=== PATIENT | female | born 1985 | race Caucasian/White ===

== ENCOUNTER 2023-04-01 09:51 | Emergency (ER) | payer SELFPAY ==
--- NOTE | 2023-04-01 09:57 | ERPHSYRPT ---
- History of Present Illness Time Seen by Provider: 04/01/23 09:57 Historian: patient Exam Limitations: no limitations Physician History: This is a 38-year-old white female patient who has been coughing for a week. This morning, approximately an hour prior to arrival, she was having some chest pain with coughing. She has had a dry, nonproductive cough for the last week. Patient is a daily smoker of cigarettes. Patient also works at a daycare. She also has headache and body aches as well. Patient is not short of breath. She does have a history of hyperlipidemia, diabetes, gastroesophageal reflux disease, hypertension, degenerative disc disease and depression. Timing/Duration: today Quality: tightness, other (Generalized tightness) Location: other (Generalized bilateral) Chest Pain Radiation: no radiation Severity of Pain-Max: mild Severity of Pain-Current: mild Modifying Factors: Improves With: coughing Associated Symptoms: cough, No nausea, No vomiting, No abdominal pain, No shortness of breath Prior Chest Pain/Cardiac Workup: no prior chest pain Nitro Today/Relief: no nitro taken today Aspirin Treatment Today: 81 mg x 4, provided by ED Allergies/Adverse Reactions: codeine Allergy (Verified 04/01/23 09:57) ketorolac [From Toradol] Allergy (Verified 04/01/23 09:57) morphine Allergy (Verified 04/01/23 09:57) ondansetron [From Zofran] Allergy (Verified 04/01/23 09:57) piroxicam [From Feldene] Allergy (Verified 04/01/23 09:57) Home Medications: Atorvastatin Calcium 40 mg PO HS 10/22/22 [History] Empagliflozin [Jardiance] 25 mg PO HS 10/22/22 [History] Fenofibrate Nanocrystallized [Fenofibrate] 145 mg PO HS 10/22/22 [History] Flecainide Acetate 50 mg PO BID 10/22/22 [History] Lamotrigine [Lamotrigine ER] 200 mg PO BID 10/22/22 [History] Lisinopril 10 mg [Zestril 10 MG] 10 mg PO HS 10/22/22 [History] Metformin HCl [Metformin ER Osmotic] 1,000 mg PO BID 10/22/22 [History] PANTOPRAZOLE 40 mg Tablet [Protonix 40MG Tablet] 40 mg PO HS 10/22/22 [History] Ropinirole HCl 2 mg PO HS 10/22/22 [History] Tizanidine HCl 4 mg [Zanaflex 4 MG] 4 mg PO TID 10/22/22 [History] Trazodone HCl 200 mg PO HS 10/22/22 [History] Venlafaxine HCl [Venlafaxine HCl ER] 150 mg PO HS 10/22/22 [History] Hx Tetanus, Diphtheria Vaccination/Date Given: No Hx Influenza Vaccination/Date Given: No Travel Risk - International Travel Have you traveled outside of the country in past 3 weeks: No - Coronavirus Screening Are you exhibiting any of the following symptoms?: Yes Symptoms: Cough: New Onset, Headaches/Body Aches/Fatigue Close contact with a COVID-19 positive Pt in past 14-21 Days: No - Vaccine Status Have you recieved a Covid-19 vaccination: No - Review of Systems Constitutional: No Symptoms Eyes: No Symptoms Ears, Nose, & Throat: No Symptoms Respiratory: Cough Cardiac: Chest Pain (Coughing) Abdominal/Gastrointestinal: No Symptoms Genitourinary Symptoms: No Symptoms Musculoskeletal: Arthralgias, Myalgias Skin: No Symptoms Neurological: No Symptoms Psychological: No Symptoms Endocrine: No Symptoms Hematologic/Lymphatic: No Symptoms Immunological/Allergic: No Symptoms All Other Systems: Reviewed and Negative - Past Medical History Pertinent Past Medical History: Yes Neurological History: No Pertinent History ENT History: No Pertinent History Cardiac History: High Cholesterol Respiratory History: No Pertinent History Endocrine Medical History: Diabetes Type II Musculoskeletal History: Degenerative Disk Disease GI Medical History: GERD History: No Pertinent History Psycho-Social History: Depression Female Reproductive Disorders: Menstrual Problems - Past Surgical History Past Surgical History: Yes Cardiac: Other Gastrointestinal: Cholecystectomy, Hernia Repair Female Surgical History: Hysterectomy Other Surgical History: ablation - Social History Smoking Status: Current some day smoker How long have you smoked: 25 years Exposure to second hand smoke: Yes Drug Use: none Patient Lives Alone: No - Nursing Vital Signs Nursing Vital Signs: Initial Vital Signs Pulse Rate 106 H 04/01/23 09:58 Pain Scale Pain Intensity 6 - Physical Exam General Appearance: no apparent distress, alert Ears, Nose, Throat Exam: normal ENT inspection, moist mucous membranes Neck Exam: normal inspection, non-tender, supple, full range of motion Respiratory Exam: normal breath sounds, lungs clear, airway intact, No chest tenderness, No respiratory distress Cardiovascular Exam: tachycardia Gastrointestinal/Abdomen Exam: soft, normal bowel sounds, No tenderness Pelvic Exam: not done Rectal Exam: not done Back Exam: normal inspection, normal range of motion, No CVA tenderness, No vertebral tenderness Extremity Exam: normal inspection, normal range of motion, pelvis stable Neurologic Exam: alert, oriented x 3, cooperative, mental health orderly II-XII nml as tested, normal mood/affect, nml cerebellar function, nml station & gait, sensation nml Skin Exam: normal color, warm, dry Lymphatic Exam: No adenopathy SpO2 Interpretation: normal O2 Delivery: Room Air - Course Nursing assessment & vital signs reviewed: Yes Ordered Tests: Active Orders 24 hr Category Date Time Status EKG-ER Only STAT Care 04/01/23 09:59 Active IV Insertion STAT Care 04/01/23 09:59 Active Pulse Oximetry (ED) STAT Care 04/01/23 09:59 Active CHEST 1 VIEW (PORTABLE) Stat Exams 04/01/23 09:58 Completed CBC W DIFF Stat Lab 04/01/23 10:20 Completed CMP Stat Lab 04/01/23 10:20 Received D-DIMER QUANTITATIVE Stat Lab 04/01/23 10:20 Completed MONO SCREEN Stat Lab 04/01/23 10:20 Completed NT PRO BNPII Stat Lab 04/01/23 10:20 Received TROPONIN Q4H Lab 04/01/23 14:00 Ordered TROPONIN Q4H Lab 04/01/23 18:00 Ordered Medication Summary Discontinued Medications Generic Name Dose Route Start Last Admin Trade Name Anderq PRN Reason Stop Dose Admin Hydrocodone Bitart/Acetaminophen 10 ml 04/01/23 10:31 04/01/23 10:36 Hydrocodone/Acetaminophen 5 Ml Udcup PO 04/01/23 10:32 10 ml STAT STA Administration Hydrocodone Bitart/Acetaminophen Confirm 04/01/23 10:34 Hydrocodone/Acetaminophen 5 Ml Udcup Administered 04/01/23 10:35 Dose 10 ml .ROUTE .STK-MED ONE Aspirin 324 mg 04/01/23 09:59 04/01/23 10:13 Aspirin 81 Mg Tab.Chew PO 04/01/23 10:00 324 mg STAT ONE Administration Aspirin Confirm 04/01/23 10:13 Aspirin 81 Mg Tab.Chew Administered 04/01/23 10:14 Dose 324 mg .ROUTE .STK-MED ONE Methylprednisolone Sodium 0 mg 04/01/23 10:31 04/01/23 10:36 Succinate 125 mg/ Sterile IV 04/01/23 10:32 125 mg Water 2 ml STAT ONE Administration Methylprednisolone Sodium Succinate Confirm 04/01/23 10:34 Methylprednis Sod Succ 125 Mg/2 Ml Vial Administered 04/01/23 10:35 Dose 125 mg .ROUTE .STK-MED ONE Sterile Water Confirm 04/01/23 10:34 Water For Injection,Sterile 10 Ml Vial Administered 04/01/23 10:35 Dose 10 ml IJ .STK-MED ONE Lab/Rad Data: Laboratory Result Diagrams 04/01/23 10:20 04/01/23 10:20 Laboratory Results 04/01/23 04/01/23 04/01/23 Range/Units 10:20 10:20 10:20 WBC (4.0-10.5) x10^3/uL RBC (4.1-5.4) x10^6/uL Hgb (12.0-16.0) g/dL Hct (35-47) % MCV (78-100) fL MCH (26-32) pg MCHC (32-36) g/dL RDW (11.5-14.0) % Plt Count (150-450) x10^3/uL MPV (7.5-11.0) fL Gran % (36.0-66.0) % Immature Gran % (Auto) (0.00-0.4) % Nucleat RBC Rel Count (0.00-0.1) % Eos # (Auto) (0-0.5) x10^3/uL Immature Gran # (Auto) (0.00-0.03) x10^3u/L Absolute Lymphs (auto) (1.0-4.6) x10^3/uL Absolute Monos (auto) (0.0-1.3) x10^3/uL Absolute Nucleated RBC (0.00-0.01) x10^3u/L Lymphocytes % (24.0-44.0) % Monocytes % (0.0-12.0) % Eosinophils % (0.00-5.0) % Basophils % (0.0-0.4) % Absolute Granulocytes (1.4-6.9) x10^3/uL Basophils # (0-0.4) x10^3/uL D-Dimer (0.0-0.50) mg/L Sodium Direct (138-146) mmol/L Potassium (3.5-4.9) mmol/L Chloride (98-109) mmol/L Carbon Dioxide (24-29) mmol/L Venous BUN (8-26) mg/dL Creatinine (0.6-1.3) mg/dL Glucose (70-105) mg/dL Ionized Calcium (1.12-1.32) mmol/L Troponin (0.00-0.03) ng/mL Monoscreen WEAKLY POSITIVE A (NEGATIVE) Influenza Type A Ag NEGATIVE (NEGATIVE) Influenza Type B Ag NEGATIVE (NEGATIVE) RSV (PCR) NEGATIVE (NEGATIVE) SARS-CoV-2 (PCR) NEGATIVE (NEGATIVE) Group A Strep Antibody NOT DETECTED (NEGATIVE) 04/01/23 04/01/23 04/01/23 Range/Units 10:20 10:20 10:20 WBC 14.3 H (4.0-10.5) x10^3/uL RBC 5.42 H (4.1-5.4) x10^6/uL Hgb 15.0 (12.0-16.0) g/dL Hct 46.7 (35-47) % MCV 86.2 (78-100) fL MCH 27.7 (26-32) pg MCHC 32.1 (32-36) g/dL RDW 14.5 H (11.5-14.0) % Plt Count 325 (150-450) x10^3/uL MPV 10.5 (7.5-11.0) fL Gran % 68.8 H (36.0-66.0) % Immature Gran % (Auto) 0.4 (0.00-0.4) % Nucleat RBC Rel Count 0.0 (0.00-0.1) % Eos # (Auto) 0.01 (0-0.5) x10^3/uL Immature Gran # (Auto) 0.06 H (0.00-0.03) x10^3u/L Absolute Lymphs (auto) 3.61 (1.0-4.6) x10^3/uL Absolute Monos (auto) 0.72 (0.0-1.3) x10^3/uL Absolute Nucleated RBC 0.00 (0.00-0.01) x10^3u/L Lymphocytes % 25.3 (24.0-44.0) % Monocytes % 5.0 (0.0-12.0) % Eosinophils % 0.1 (0.00-5.0) % Basophils % 0.4 (0.0-0.4) % Absolute Granulocytes 9.83 H (1.4-6.9) x10^3/uL Basophils # 0.05 (0-0.4) x10^3/uL D-Dimer 0.38 (0.0-0.50) mg/L Sodium Direct 137 L (138-146) mmol/L Potassium 3.7 (3.5-4.9) mmol/L Chloride 104 (98-109) mmol/L Carbon Dioxide 21 L (24-29) mmol/L Venous BUN 13 (8-26) mg/dL Creatinine 0.6 (0.6-1.3) mg/dL Glucose 177 H (70-105) mg/dL Ionized Calcium 1.07 L (1.12-1.32) mmol/L Troponin 0.02 (0.00-0.03) ng/mL Monoscreen (NEGATIVE) Influenza Type A Ag (NEGATIVE) Influenza Type B Ag (NEGATIVE) RSV (PCR) (NEGATIVE) SARS-CoV-2 (PCR) (NEGATIVE) Group A Strep Antibody (NEGATIVE) - Progress Progress: improved, re-examined Air Movement: good Progress Note: 04/01/23 11:54 This patient's medical issue is 1 of moderate complexity. The level of complexity in the work-up performed is based on review of the patient's past medical history, review the patient's medication list, review of patient drug allergy list, history of present illness and physical findings on examination. The work-up in this patient includes placement of intravenous line, chest x-ray, twelve-lead EKG, D-dimer, troponin level, CBC and CMP. I reviewed the results of the work-up. The chest x-ray was interpreted by the radiologist and I reviewed the impression. There is a subtle left base hazy airspace disease without consolidation or large effusion. Patient does have leukocytosis. It appears the patient has a pneumonia that is subtle but present radiographically. Clinically this fits her picture. We will provide her with Rocephin 1 g intravenously and discharge her home with a prescription for Z-[place], prednisone and hydrocodone elixir. Blood Culture(s) Obtained: Yes Antibiotics given: Yes Counseled pt/family regarding: lab results, diagnosis, need for follow-up, rad results Medical Desision Making - Diagnostic Testing Diagnostic test were ordered, analyzed, and reviewed by me: Yes Radiological Interpretation: Reviewed by me, Teleradiologist Report - Risk of complications The pt has a mod risk of morbidity or mortality based on: Need for prescription drug management - Departure Departure Disposition: Home Clinical Impression: Left pulmonary infiltrate on CXR, Monospot test positive Condition: Stable Critical Care Time: No Referrals: DOCTOR,NO FAMILY [Primary Care Provider] - Follow up/PCP as directed Additional Instructions: Stop smoking. Drink plenty fluids. Take your antibiotics and other medications as prescribed. Follow-up with your primary care provider for further evaluation and management. Prescriptions: Hydrocodone/Acetaminophen [Hydrocodone-Acetamn 7.5-325/15] 10 ml PO Q8H PRN PRN #120 ml MDD 30 ml PRN Reason: Cough Prednisone 10 mg [Deltasone 10 mg] 10 mg PO TID #12 tablet Azithromycin 250 mg [Zithromax 250 MG TABLET] 250 mg PO ZPACK #6 tablet
[2023-04-01] MEDS ORDERED: BABY ASPIRIN 81 MG CHEW PO ONE (09:59)
[2023-04-01 10:01] VITALS: TEMP 98.3
[2023-04-01] MEDS ORDERED: BABY ASPIRIN 81 MG CHEW ONE (10:13)
[2023-04-01 10:24] LABS: Absolute Neutrophil Ct (ANC) 9.83 x10^3/uL (1.4-6.9); BASOPHIL % 0.4 % (0.0-0.4); Basophil (Absolute #) 0.05 x10^3/uL (0-0.4); Eosinophil % 0.1 % (0.00-5.0); Eosinophil (Absolute #) 0.01 x10^3/uL (0-0.5); Hematocrit 46.7 % (35-47); IMMATURE GRAN # 0.06 x10^3u/L (0.00-0.03); IMMATURE GRAN % 0.4 % (0.00-0.4); Lymphocyte (Absolute #) 3.61 x10^3/uL (1.0-4.6); Lymphocytes % 25.3 % (24.0-44.0); Mean Cell Volume 86.2 fL (78-100); Mean Corpuscular Hemoglobin 27.7 pg (26-32); Mean Corpuscular Hgb Concent. 32.1 g/dL (32-36); Mean Platelet Volume 10.5 fL (7.5-11.0); Monocyte (Absolute #) 0.72 x10^3/uL (0.0-1.3); Neutrophil % 68.8 % (36.0-66.0); Platelet Count 325 x10^3/uL (150-450); Red Blood Count 5.42 x10^6/uL (4.1-5.4); Red Cell Distribution Width 14.5 % (11.5-14.0); White Blood Count 14.3 x10^3/uL (4.0-10.5)
[2023-04-01] MEDS ORDERED: solu-MEDROL 125 MG, Sterile H2O 10 ml 2 ML IV ONE ×2 (10:31)
[2023-04-01] MEDS ORDERED: HYDROCODONE-ACETAMIN 2.5-108/5 ML SOLUTION PO STA ×2 (10:31→12:05)
--- NOTE | 2023-04-01 10:31 | XRAY ---
Indication: Cough and chest pain. Comparison: None Portable chest demonstrates subtle left base hazy airspace disease without consolidation/large effusion. Remaining heart and lungs unremarkable. Bony thorax intact.
[2023-04-01] MEDS ORDERED: Sterile H2O 10 ml IJ ONE (10:34)
[2023-04-01] MEDS ORDERED: HYDROCODONE-ACETAMIN 2.5-108/5 ML SOLUTION ONE ×2 (10:34→12:08)
[2023-04-01] MEDS ORDERED: solu-MEDROL ONE (10:34)
[2023-04-01 10:36] LABS: ISTAT CREA 0.6 mg/dL (0.6-1.3); ISTAT K 3.7 mmol/L (3.5-4.9); ISTAT iCA 1.07 mmol/L (1.12-1.32)
[2023-04-01 10:59] LABS: ISTAT cTNI 0.02 ng/mL (0.00-0.03)
[2023-04-01 11:31] LABS: INFLUENZA A NEGATIVE (NEGATIVE); INFLUENZA B NEGATIVE (NEGATIVE); RESPIRATORY SYNCTIAL VIRUS NEGATIVE (NEGATIVE); SARS-CoV-2 Xpert Express NEGATIVE (NEGATIVE)
[2023-04-01] MEDS ORDERED: ROCEPHIN 1 Gm-D5w 50 ml Bag** 1 G/50 ML IVPB IV STA (11:54)
[2023-04-01] MEDS ORDERED: ROCEPHIN 1 Gm-D5w 50 ml Bag** 1 G/50 ML IVPB IV ONE (11:59)
[2023-04-01 12:12] VITALS: BP 116/80; PULSE 86; RESP 16; O2SAT 96
[2023-04-01 12:46] LABS: ALKALINE PHOSPHATASE 61 U/L (38-126); ANION GAP 19.6 MEQ/L (5-15); BLOOD UREA NITROGEN 11 mg/dL (7-17); CHLORIDE 105 mmol/L (98-107); Calcium 8.8 mg/dL (8.4-10.2); Carbon Dioxide 20 mmol/L (22-30); Creatinine 1 0.53 mg/dL (0.52-1.04); EST GLOMERULAR FILTRATION RATE > 60.0 ML/MIN; Glucose 155 mg/dL (74-106); NT PRO BNPII 235 pg/mL (<300); Potassium 3.7 mmol/L (3.5-5.1); SGOT/AST 24 U/L (14-36); SGPT/ALT 24 U/L (0-35); SODIUM 140 mmol/L (137-145)
== END 2023-04-01 12:19 | disposition home or self-care (01) ==
LOC: MERGE 09:51 → ED 09:51
DX: R91.8 Other nonspecific abnormal finding of lung field (principal); B27.90 Infectious mononucleosis, unspecified without complication; R07.9 Chest pain, unspecified; R05.9 Cough, unspecified; R51.9 Headache, unspecified; M79.10 Myalgia, unspecified site; E78.5 Hyperlipidemia, unspecified; E11.9 Type 2 diabetes mellitus without complications; I10 Essential (primary) hypertension; Z79.84 Long term (current) use of oral hypoglycemic drugs; Z79.899 Other long term (current) drug therapy; Z79.891 Long term (current) use of opiate analgesic; Z79.52 Long term (current) use of systemic steroids; Z28.310 Unvaccinated for COVID-19; Z72.0 Tobacco use
CPT/HCPCS: 0241U; 36000; 36415; 71045; 80047; 80053; 83880; 84484; 85025; 85379; 86308; 87651; 93005; 94760; 96365; 96374; 99284; J0696; J2930; A9270-GY

== ENCOUNTER 2023-08-06 15:19 | Emergency (ER) | payer OTHER ==
--- NOTE | 2023-08-06 15:48 | ERPHSYRPT ---
- History of Present Illness Time Seen by Provider: 08/06/23 15:48 Source: patient, family Exam Limitations: no limitations Physician History: This is a 38-year-old white female patient who presents to the emergency department after experiencing sudden onset of right flank pain that is sharp and radiating to the right lower quadrant. Patient has had similar symptoms in the past. She has a history of ovarian cyst on the right side as well as right ureterolithiasis. Patient cannot take Toradol. She can use intravenous Dilaudid. She has used this in the past without any negative adverse effects. Patient has a history of degenerative disc disease, hyperlipidemia and depression. Patient denies chest pain. Patient has shortness of breath. Patient has not had any cough. She denies nausea vomiting and diarrhea symptoms. Timing/Duration: today Method of Injury: other (Injury) Quality: sharp, stabbing Associated Symptoms: weakness, No urinary incontinence, No loss of bowel control, No problems urinating, No lower back pain Previous symptoms: same symptoms as today, no recent treatment Allergies/Adverse Reactions: codeine Allergy (Verified 08/06/23 15:52) ketorolac [From Toradol] Allergy (Verified 08/06/23 15:52) morphine Allergy (Verified 08/06/23 15:52) ondansetron [From Zofran] Allergy (Verified 08/06/23 15:52) piroxicam [From Feldene] Allergy (Verified 08/06/23 15:52) Home Medications: Atorvastatin Calcium 40 mg PO HS 10/22/22 [History] Empagliflozin [Jardiance] 25 mg PO HS 10/22/22 [History] Fenofibrate Nanocrystallized [Fenofibrate] 145 mg PO HS 10/22/22 [History] Flecainide Acetate 50 mg PO BID 10/22/22 [History] Lamotrigine [Lamotrigine ER] 200 mg PO BID 10/22/22 [History] Lisinopril 10 mg [Zestril 10 MG] 10 mg PO HS 10/22/22 [History] Metformin HCl [Metformin ER Osmotic] 1,000 mg PO BID 10/22/22 [History] PANTOPRAZOLE 40 mg Tablet [Protonix 40MG Tablet] 40 mg PO HS 10/22/22 [History] Ropinirole HCl 2 mg PO HS 10/22/22 [History] Tizanidine HCl 4 mg [Zanaflex 4 MG] 4 mg PO TID 10/22/22 [History] Trazodone HCl 200 mg PO HS 10/22/22 [History] Venlafaxine HCl [Venlafaxine HCl ER] 150 mg PO HS 10/22/22 [History] Hx Tetanus, Diphtheria Vaccination/Date Given: No Hx Influenza Vaccination/Date Given: No Hx Pneumococcal Vaccination/Date Given: Yes Travel Risk - International Travel Have you traveled outside of the country in past 3 weeks: No - Coronavirus Screening Are you exhibiting any of the following symptoms?: No Close contact with a COVID-19 positive Pt in past 14-21 Days: No - Vaccine Status Have you recieved a Covid-19 vaccination: No - Review of Systems Constitutional: No Symptoms Eyes: No Symptoms Ears, Nose, & Throat: No Symptoms Respiratory: No Symptoms Cardiac: No Symptoms Abdominal/Gastrointestinal: Abdominal Pain, No Nausea, No Vomiting, No Diarrhea, No Appetite Changes Genitourinary Symptoms: Flank Pain (Right flank) Musculoskeletal: No Symptoms, No Injury Skin: No Symptoms Neurological: No Symptoms Psychological: No Symptoms Endocrine: No Symptoms Hematologic/Lymphatic: No Symptoms Immunological/Allergic: No Symptoms All Other Systems: Reviewed and Negative - Past Medical History Pertinent Past Medical History: Yes Neurological History: No Pertinent History ENT History: No Pertinent History Cardiac History: High Cholesterol Respiratory History: No Pertinent History Endocrine Medical History: Diabetes Type II Musculoskeletal History: Degenerative Disk Disease GI Medical History: GERD History: No Pertinent History Psycho-Social History: Depression Female Reproductive Disorders: Menstrual Problems - Past Surgical History Past Surgical History: Yes Cardiac: Other Gastrointestinal: Cholecystectomy, Hernia Repair Female Surgical History: Hysterectomy Other Surgical History: ablation - Social History Smoking Status: Current some day smoker How long have you smoked: 25 years Exposure to second hand smoke: Yes Drug Use: none Patient Lives Alone: No - Nursing Vital Signs Nursing Vital Signs: Initial Vital Signs Temperature 97.8 F 08/06/23 15:55 Pulse Rate 93 H 08/06/23 15:55 Respiratory Rate 18 08/06/23 15:55 Blood Pressure 122/81 08/06/23 15:55 O2 Sat by Pulse Oximetry 96 08/06/23 15:55 Pain Scale Pain Intensity 6 - Physical Exam General Appearance: no apparent distress, alert, anxiety Eye Exam: PERRL/EOMI, eyes nml inspection Ears, Nose, Throat Exam: normal ENT inspection, moist mucous membranes Neck Exam: normal inspection, non-tender, supple, full range of motion Respiratory Exam: normal breath sounds, lungs clear, airway intact, No chest tenderness, No respiratory distress Cardiovascular Exam: regular rate/rhythm, normal heart sounds, normal peripheral pulses Gastrointestinal Exam: soft, normal bowel sounds, tenderness, guarding (Lower quadrant), No rebound ( right lower quadrant to palpation) Pelvic Exam: not done Rectal Exam: not done Back Exam: normal inspection, normal range of motion, CVA tenderness (Right), No vertebral tenderness Extremity Exam: normal inspection, normal range of motion, pelvis stable Neurologic Exam: alert, oriented x 3, cooperative, assistant director of security II-XII nml as tested, normal mood/affect, nml cerebellar function, nml station & gait, sensation nml Skin Exam: normal color, warm, dry Lymphatic Exam: No adenopathy SpO2 Interpretation: borderline oxygenation O2 Delivery: Room Air - Course Nursing assessment & vital signs reviewed: Yes Ordered Tests: Active Orders 24 hr Category Date Time Status IV Insertion STAT Care 08/06/23 16:13 Active ABDOMEN AND PELVIS W/0 CONTRAS [CT] Stat Exams 08/06/23 16:12 Completed AMYLASE Stat Lab 08/06/23 16:22 Completed CBC W DIFF Stat Lab 08/06/23 16:22 Completed CMP Stat Lab 08/06/23 16:22 Completed LIPASE Stat Lab 08/06/23 16:22 Completed UA W/RFX UR CULTURE Stat Lab 08/06/23 16:17 Completed Medication Summary Discontinued Medications Generic Name Dose Route Start Last Admin Trade Name Jean PRN Reason Stop Dose Admin Hydromorphone HCl 1 mg 08/06/23 16:13 08/06/23 16:34 Hydromorphone 1 Mg/1ml Inj IV 08/06/23 16:14 1 mg STAT ONE Administration Hydromorphone HCl Confirm 08/06/23 16:30 Hydromorphone 1 Mg/1ml Inj Administered 08/06/23 16:31 Dose 1 mg .ROUTE .STK-MED ONE Sodium Chloride 1,000 mls @ 999 mls/hr 08/06/23 16:13 08/06/23 16:31 Sodium Chloride 0.9% 1000 Ml IV 08/06/23 17:13 999 mls/hr .Q1H1M STA Administration Sodium Chloride Confirm 08/06/23 16:30 Sodium Chloride 0.9% 1000 Ml Administered 08/06/23 16:31 Dose 1,000 mls @ ud .ROUTE .[employer] Prochlorperazine Edisylate 5 mg 08/06/23 16:13 08/06/23 16:33 Prochlorperazine Edisylate 10 Mg/2 Ml Vial IV 08/06/23 16:14 5 mg STAT ONE Administration Prochlorperazine Edisylate Confirm 08/06/23 16:30 Prochlorperazine Edisylate 10 Mg/2 Ml Vial Administered 08/06/23 16:31 Dose 10 mg .ROUTE .[employer] Lab/Rad Data: Laboratory Result Diagrams 08/06/23 16:22 08/06/23 16:22 Laboratory Results 08/06/23 08/06/23 08/06/23 Range/Units 16:22 16:22 16:17 WBC 20.1 H (4.0-10.5) x10^3/uL RBC 4.94 (4.1-5.4) x10^6/uL Hgb 13.6 (12.0-16.0) g/dL Hct 41.4 (35-47) % MCV 83.8 (78-100) fL MCH 27.5 (26-32) pg MCHC 32.9 (32-36) g/dL RDW 14.7 H (11.5-14.0) % Plt Count 310 (150-450) x10^3/uL MPV 9.9 (7.5-11.0) fL Gran % 73.7 H (36.0-66.0) % Immature Gran % (Auto) 0.3 (0.00-0.4) % Nucleat RBC Rel Count 0.0 (0.00-0.1) % Eos # (Auto) 0.03 (0-0.5) x10^3/uL Immature Gran # (Auto) 0.07 H (0.00-0.03) x10^3u/L Absolute Lymphs (auto) 4.09 (1.0-4.6) x10^3/uL Absolute Monos (auto) 1.05 (0.0-1.3) x10^3/uL Absolute Nucleated RBC 0.00 (0.00-0.01) x10^3u/L Lymphocytes % 20.4 L (24.0-44.0) % Monocytes % 5.2 (0.0-12.0) % Eosinophils % 0.1 (0.00-5.0) % Basophils % 0.3 (0.0-0.4) % Absolute Granulocytes 14.78 H (1.4-6.9) x10^3/uL Basophils # 0.06 (0-0.4) x10^3/uL Sodium 134 L (137-145) mmol/L Potassium 3.7 (3.5-5.1) mmol/L Chloride 104 (98-107) mmol/L Carbon Dioxide 21 L (22-30) mmol/L Anion Gap 12.4 (5-15) MEQ/L BUN 14 (7-17) mg/dL Creatinine 0.45 L (0.52-1.04) mg/dL Estimated GFR 126.2 ML/MIN Glucose 147 H (74-106) mg/dL Calcium 9.1 (8.4-10.2) mg/dL Total Bilirubin 0.40 (0.2-1.3) mg/dL AST 19 (14-36) U/L ALT 20 (0-35) U/L Alkaline Phosphatase 61 (38-126) U/L Serum Total Protein 7.6 (6.3-8.2) g/dL Albumin 4.1 (3.5-5.0) g/dL Amylase 44 (30-110) U/L Lipase 76 (23-300) U/L Urine Color Yellow (Yellow) Urine Appearance Clear (Clear) Urine pH 6.0 (4.6-8.0) Ur Specific [place] >=1.030 A (1.005-1.030) Urine Protein Negative (Negative) Urine Glucose (UA) >=1000 A (Negative) mg/dL Urine Ketones Negative (Negative) Urine Blood Negative (Negative) Urine Nitrite Negative (Negative) Urine Bilirubin Negative (Negative) Urine Urobilinogen 0.2 (0.2) mg/dL Ur Leukocyte Esterase Negative (Negative) U Hyaline Cast (Auto) NONE SEEN (0-2) /LPF Urine Microscopic RBC 0-2 (0-5) /HPF Urine Microscopic WBC 0-2 (0-5) /HPF Ur Epithelial Cells None Seen (None Seen) /HPF Urine Bacteria None Seen (None Seen) /HPF Urine Culture Reflexed NO (NO) - Progress Progress: improved, pain not gone completely Progress Note: 08/06/23 16:34 This patient's medical issue is 1 of moderate complexity. Level of complexity in the workup performed is based on review of the patient's past medical history, review the patient's medication list, reviewed patient's drug allergy list, history of present illness and physical findings on examination. The w orkup in this patient includes placement of an intravenous line, CBC, CMP, amylase, lipase, urinalysis, CT scan of the abdomen pelvis without contrast. 08/06/23 17:20 I interpreted the patient's laboratory results. Of significance, the patient has leukocytosis with a left shift. There is an unknown source. Does not appear to be lungs or skin or urine. We will cover her with Levaquin orally eac h day for [address] scan of the abdomen pelvis was interpreted by the radiologist and I reviewed the impression. Impression says negative for renal calculus or obstructive uropathy. Normal appendix. The lung bases show minimal dependent atelectasis. The aorta is unremarkable. Counseled pt/family regarding: lab results, diagnosis, need for follow-up, rad results Medical Desision Making - Independent Historian Additional History obtained from: Family - Diagnostic Testing Diagnostic test were ordered, analyzed, and reviewed by me: Yes Radiological Interpretation: Reviewed by me, Teleradiologist Report - Risk of complications The pt has a mod risk of morbidity or mortality based on: Need for prescription drug management - Departure Departure Disposition: Home Clinical Impression: Leukocytosis, Right flank pain, Right sided abdominal pain Condition: Stable Critical Care Time: No Referrals: DOLORES MEJIA [Primary Care Provider] - Follow up/PCP as directed Additional Instructions: Drink plenty of clear liquids. Take your antibiotic and other medications as prescribed. Call your primary care provider on 08/09/2023 to make arranges for further evaluation management. Prescriptions: Oxycodone HCl/Acetaminophen [Percocet 5-325 mg Tablet] 1 each PO Q8H PRN PRN #6 tablet MDD 3 PRN Reason: Moderate To Severe Pain Levofloxacin [Levaquin 500 MG Tablet] 500 mg PO DAILY #7 tablet
[2023-08-06 16:05] VITALS: TEMP 97.8; O2SAT 96
[2023-08-06] MEDS ORDERED: Hydromorphone 1 mg/ml Injection IV ONE (16:13)
[2023-08-06] MEDS ORDERED: Compazine 10 MG/2 ML IV ONE (16:13)
[2023-08-06] MEDS ORDERED: Sodium Chloride 0.9% 1000 ML 1,000 ML IV STA (16:13)
[2023-08-06 16:22] LABS: ADD URINE CULTURE? NO (NO); Appearance Clear (Clear); Bacteria None Seen /HPF (None Seen); Bilirubin Negative (Negative); Blood Negative (Negative); Epithelial Cells None Seen /HPF (None Seen); Glucose, Urine >=1000 mg/dL (Negative); Hyaline Casts NONE SEEN /LPF (0-2); Ketones Negative (Negative); Leukocyte Esterase Negative (Negative); Nitrite Negative (Negative); Protein,Urine Dip Negative (Negative); RBC 0-2 /HPF (0-5); Specific Gravity >=1.030 (1.005-1.030); Urobilinogen 0.2 mg/dL (0.2); WBC 0-2 /HPF (0-5)
[2023-08-06 16:27] LABS: Absolute Neutrophil Ct (ANC) 14.78 x10^3/uL (1.4-6.9); BASOPHIL % 0.3 % (0.0-0.4); Basophil (Absolute #) 0.06 x10^3/uL (0-0.4); Eosinophil % 0.1 % (0.00-5.0); Eosinophil (Absolute #) 0.03 x10^3/uL (0-0.5); Hematocrit 41.4 % (35-47); Hemoglobin 13.6 g/dL (12.0-16.0); IMMATURE GRAN # 0.07 x10^3u/L (0.00-0.03); IMMATURE GRAN % 0.3 % (0.00-0.4); Lymphocyte (Absolute #) 4.09 x10^3/uL (1.0-4.6); Lymphocytes % 20.4 % (24.0-44.0); Mean Cell Volume 83.8 fL (78-100); Mean Corpuscular Hemoglobin 27.5 pg (26-32); Mean Corpuscular Hgb Concent. 32.9 g/dL (32-36); Mean Platelet Volume 9.9 fL (7.5-11.0); Monocyte (Absolute #) 1.05 x10^3/uL (0.0-1.3); Monocytes % 5.2 % (0.0-12.0); Neutrophil % 73.7 % (36.0-66.0); Platelet Count 310 x10^3/uL (150-450); Red Blood Count 4.94 x10^6/uL (4.1-5.4); Red Cell Distribution Width 14.7 % (11.5-14.0); White Blood Count 20.1 x10^3/uL (4.0-10.5)
[2023-08-06 16:28] VITALS: BP 106/69; PULSE 86; RESP 16
[2023-08-06] MEDS ORDERED: Hydromorphone 1 mg/ml Injection ONE (16:30)
[2023-08-06] MEDS ORDERED: Sodium Chloride 0.9% 1000 ML 1,000 ML ONE (16:30)
[2023-08-06] MEDS ORDERED: Compazine 10 MG/2 ML ONE (16:30)
[2023-08-06 16:39] LABS: ALBUMIN 4.1 g/dL (3.5-5.0); ANION GAP 12.4 MEQ/L (5-15); BILIRUBIN,TOTAL 0.4 mg/dL (0.2-1.3); Calcium 9.1 mg/dL (8.4-10.2); Creatinine 1 0.45 mg/dL (0.52-1.04); EST GLOMERULAR FILTRATION RATE 126.2 ML/MIN; Potassium 3.7 mmol/L (3.5-5.1); Total Protein 7.6 g/dL (6.3-8.2)
--- NOTE | 2023-08-06 17:09 | XRAY ---
Indication: Right flank/right abdomen pain. Multiple contiguous axial images obtained through the abdomen and pelvis without contrast using renal stone protocol. Comparison: October 22, 2022 Lung bases demonstrates minimal dependent atelectasis. Heart not enlarged. Again no renal calculus or evidence for obstructive uropathy in either system. Noncontrasted stomach and bowel loops appear nonobstructed again with normal appendix. Previous cholecystectomy and hysterectomy. No free fluid/air. Remaining liver, pancreas, spleen, adrenal glands, kidneys, ureters, bladder, and aorta are unremarkable for noncontrast exam. Osseous structures intact again with L5-S1 fusion hardware and mild degenerative changes both hips. Impression: 1. Continued negative renal calculus or evidence for obstructive uropathy. 2. Again chronic bony findings. 3. Remaining CT abdomen/pelvis without contrast exam continues to be negative.
== END 2023-08-06 17:53 | disposition home or self-care (01) ==
LOC: ED 15:19
DX: D72.829 Elevated white blood cell count, unspecified (principal); R10.31 Right lower quadrant pain; R10.11 Right upper quadrant pain; E78.5 Hyperlipidemia, unspecified; E11.9 Type 2 diabetes mellitus without complications; Z79.84 Long term (current) use of oral hypoglycemic drugs; Z79.891 Long term (current) use of opiate analgesic; Z79.899 Other long term (current) drug therapy; Z28.310 Unvaccinated for COVID-19; Z72.0 Tobacco use
CPT/HCPCS: 36000; 36415; 74176; 80053; 81001; 82150; 83690; 85025; 96374; 96375; 99284; J1170

== ENCOUNTER 2023-08-13 16:28 | Emergency (ER) | payer OTHER ==
[2023-08-13 17:00] VITALS: TEMP 97.7
[2023-08-13 18:04] VITALS: BP 116/78
[2023-08-13] MEDS ORDERED: Norflex 60 MG/2 ML IM ONE (19:00)
[2023-08-13] MEDS ORDERED: PERCOCET TABLET 5/325MG PO STA (19:01)
[2023-08-13] MEDS ORDERED: solu-MEDROL 125 MG, Sterile H2O 10 ml 2 ML IM ONE ×2 (19:01)
--- NOTE | 2023-08-13 19:09 | ERPHSYRPT ---
- History of Present Illness Time Seen by Provider: 08/13/23 17:15 Source: patient Exam Limitations: no limitations Patient Subjective Stated Complaint: Pt states "I slipped down a step in the rain and hit my back. I have had spinal fusion in the past and I am just nervou s." Triage Nursing Assessment: Pt presented alert and oriented X 3, skin pwd. Pt ambulates with a slow gait, able to speak in clear full sentences. PT resting comfortably on the bed. Physician History: This is an overweight 38-year-old white female patient who has had a spinal fusion of L5-S1 and was walking on her steps in the rain and slipped falling backwards and hitting the lower back. She was concerned because of the pain and concerned that the hardware that is present has been displaced. Patient did not hit her head. She did not lose consciousness. She has no chest pain. She has no extremity pain. She has no abdominal pain Occurred: just prior to arrival Reason for Fall: slipped (On wet steps), fell from standing pos Injuries/Pain Location: back (Lower back) Loss of Consciousness: no loss of consciousness Quality: aching Severity of Pain-Max: moderate Severity of Pain-Current: moderate Modifying Factors: Improves With: movement Associated Symptoms (Fall): denies symptoms Allergies/Adverse Reactions: codeine Allergy (Verified 08/06/23 15:52) ketorolac [From Toradol] Allergy (Verified 08/06/23 15:52) morphine Allergy (Verified 08/06/23 15:52) ondansetron [From Zofran] Allergy (Verified 08/06/23 15:52) piroxicam [From Feldene] Allergy (Verified 08/06/23 15:52) Home Medications: Atorvastatin Calcium 40 mg PO HS 10/22/22 [History] Empagliflozin [Jardiance] 25 mg PO HS 10/22/22 [History] Fenofibrate Nanocrystallized [Fenofibrate] 145 mg PO HS 10/22/22 [History] Flecainide Acetate 50 mg PO BID 10/22/22 [History] Lamotrigine [Lamotrigine ER] 200 mg PO BID 10/22/22 [History] Lisinopril 10 mg [Zestril 10 MG] 10 mg PO HS 10/22/22 [History] Metformin HCl [Metformin ER Osmotic] 1,000 mg PO BID 10/22/22 [History] PANTOPRAZOLE 40 mg Tablet [Protonix 40MG Tablet] 40 mg PO HS 10/22/22 [History] Ropinirole HCl 2 mg PO HS 10/22/22 [History] Tizanidine HCl 4 mg [Zanaflex 4 MG] 4 mg PO TID 10/22/22 [History] Trazodone HCl 200 mg PO HS 10/22/22 [History] Venlafaxine HCl [Venlafaxine HCl ER] 150 mg PO HS 10/22/22 [History] Gabapentin 800 mg PO TID 08/13/23 [History] Hx Tetanus, Diphtheria Vaccination/Date Given: No Hx Influenza Vaccination/Date Given: No Hx Pneumococcal Vaccination/Date Given: Yes Immunizations Up to Date: No Travel Risk - International Travel Have you traveled outside of the country in past 3 weeks: No - Coronavirus Screening Are you exhibiting any of the following symptoms?: No Close contact with a COVID-19 positive Pt in past 14-21 Days: No - Vaccine Status Have you recieved a Covid-19 vaccination: No - Review of Systems Constitutional: No Symptoms Eyes: No Symptoms Ears, Nose, & Throat: No Symptoms Respiratory: No Symptoms Cardiac: No Symptoms Abdominal/Gastrointestinal: No Symptoms Genitourinary Symptoms: No Symptoms Musculoskeletal: Back Pain (Lower back pain with movement) Skin: No Symptoms Neurological: No Symptoms Psychological: No Symptoms Endocrine: No Symptoms Hematologic/Lymphatic: No Symptoms Immunological/Allergic: No Symptoms All Other Systems: Reviewed and Negative - Past Medical History Pertinent Past Medical History: Yes Neurological History: No Pertinent History ENT History: No Pertinent History Cardiac History: High Cholesterol Respiratory History: No Pertinent History Endocrine Medical History: Diabetes Type II Musculoskeletal History: Degenerative Disk Disease GI Medical History: GERD History: No Pertinent History Psycho-Social History: Depression Female Reproductive Disorders: Menstrual Problems - Past Surgical History Past Surgical History: Yes Cardiac: Other Gastrointestinal: Cholecystectomy, Hernia Repair Female Surgical History: Hysterectomy Other Surgical History: ablation - Social History Smoking Status: Current some day smoker How long have you smoked: 25 years Exposure to second hand smoke: Yes Drug Use: none Patient Lives Alone: No - Female History Hx Last Menstrual Period: hysterectomy Hx Now: No - Nursing Vital Signs Nursing Vital Signs: Initial Vital Signs Temperature 97.7 F 08/13/23 16:55 Pulse Rate 100 H 08/13/23 16:55 Respiratory Rate 20 08/13/23 16:55 Blood Pressure 110/76 08/13/23 16:55 O2 Sat by Pulse Oximetry 98 08/13/23 16:55 Pain Scale Pain Intensity 0 - Julio Coma Score Best Eye Response (Julio): (4) open spontaneously Best Verbal Response (Julio): (5) oriented Best Motor Response ([place]): (6) obeys commands [place] Total: 15 - Physical Exam General Appearance: no apparent distress, alert, anxiety Head Injury: no evidence of injury Eye Exam: PERRL/EOMI, eyes nml inspection ENT Exam: airway nml, nml ext.inspection, No evidence of ENT injury Neck Exam: supple, trachea midline, full range of motion, normal alignment, normal inspection Respiratory/Chest Exam: normal breath sounds, No chest tenderness, No respiratory distress, No ecchymosis, No crepitus Cardiovascular Exam: normal heart sounds, regular rate/rhythm Gastrointestinal Exam: No tenderness Rectal Exam: not done Back Exam: normal inspection, normal range of motion, muscle spasm (Lumbar level pain bilateral paraspinous muscle), No CVA tenderness, No vertebral tenderness Extremity Exam: normal inspection, normal range of motion, pelvis stable Neurologic Exam: alert, oriented x 3, cooperative, aerial gunner superintendent II-XII nml as tested, normal mood/affect, nml cerebellar function, nml station & gait Skin Exam: normal color, warm, dry SpO2 Interpretation: normal SpO2: 97 O2 Delivery: Room Air - Course Nursing assessment & vital signs reviewed: Yes Ordered Tests: Active Orders 24 hr Category Date Time Status LUMBAR LIMITED (2 OR 3 VIEWS) Stat Exams 08/13/23 17:36 Taken Medication Summary Discontinued Medications Generic Name Dose Route Start Last Admin Trade Name Freq PRN Reason Stop Dose Admin Methylprednisolone Sodium 0 mg 08/13/23 19:01 Succinate 125 mg/ Sterile IM 08/13/23 19:02 Water 2 ml STAT ONE Orphenadrine Citrate 30 mg 08/13/23 19:00 Orphenadrine Citrate 60 Mg/2 Ml Vial IM 08/13/23 19:01 STAT ONE Oxycodone/Acetaminophen 1 tab 08/13/23 19:01 Oxycodone Hcl/Apap 5 Mg/325 Mg Tablet PO 08/13/23 19:02 STAT STA - Progress Progress: improved, pain not gone completely Progress Note: 08/13/23 19:07 This patient's medical issue is 1 of low complexity. The level of complexity in the workup performed is based on review the patient's past medical history, review the patient's medication list, review of the patient's drug allergy list, history of present illness and physical findings on examination. The workup in this patient includes lumbar spine x-ray series. I interpreted the lumbar spine x-ray series that was performed today. I do not appreciate any acute or new fracture or subluxation. The spinal fusion hardware appears to be in the appropriate position. Patient was told that this was a preliminary read and the final read would be performed in the next 24 to 48 hours. If it is different than my read, she will hear from the hospital. 08/13/23 19:09 Patient has taken oxycodone and can take oxycodone without adverse effects. Counseled pt/family regarding: diagnosis, need for follow-up, rad results Medical Desision Making - Diagnostic Testing Diagnostic test were ordered, analyzed, and reviewed by me: Yes Radiological Interpretation: Interpreted by me - Risk of complications The pt has a mod risk of morbidity or mortality based on: Need for prescription drug management - Departure Departure Disposition: Home Clinical Impression: Fall with no significant injury, Back pain Condition: Stable Critical Care Time: No Referrals: DOLORES MEJIA [Primary Care Provider] - Follow up/PCP as directed Additional Instructions: Ice pack to the tender area 3 times a day for the next 48 hours. Continue your tizanidine as prescribed. Take your other medications as prescribed. Follow-up with your primary care provider as an outpatient on 08/16/2023, to make arranges for follow-up appointment the next 3 to 5 days. Prescriptions: Oxycodone HCl/Acetaminophen [Percocet 5-325 mg Tablet] 1 each PO Q8H PRN PRN #6 tablet MDD 3 PRN Reason: Moderate To Severe Pain
[2023-08-13] MEDS ORDERED: Sterile H2O 10 ml IJ ONE (19:10)
[2023-08-13] MEDS ORDERED: Norflex 60 MG/2 ML ONE (19:11)
[2023-08-13] MEDS ORDERED: PERCOCET TABLET 5/325MG ONE (19:11)
[2023-08-13] MEDS ORDERED: solu-MEDROL ONE (19:11)
[2023-08-13 19:49] VITALS: PULSE 84; RESP 18; O2SAT 96
--- NOTE | 2023-08-13 22:54 | XRAY ---
Indication: Pain following fall. Comparison: None 3 view lumbar spine demonstrates 5 typical lumbar segments with partial sacralized L6. Prior L5-L6 fusion with intact hardware. No other bony, articular, or soft tissue abnormalities.
== END 2023-08-13 19:48 | disposition home or self-care (01) ==
LOC: ED 16:28
DX: M54.50 Low back pain, unspecified (principal); W10.8XXA Fall (on) (from) other stairs and steps, initial encounter; Y92.007 Garden or yard of unspecified non-institutional (private) residence as the place of occurrence of the external cause; E78.5 Hyperlipidemia, unspecified; E11.9 Type 2 diabetes mellitus without complications; Z79.891 Long term (current) use of opiate analgesic; Z79.84 Long term (current) use of oral hypoglycemic drugs; Z79.899 Other long term (current) drug therapy; Z28.310 Unvaccinated for COVID-19; Z72.0 Tobacco use
CPT/HCPCS: 72100; 96372; 99283; J2360; J2930; A9270-GY

== ENCOUNTER 2023-09-02 17:06 | Emergency (ER) | payer OTHER ==
--- NOTE | 2023-09-02 17:11 | ERPHSYRPT ---
- History of Present Illness Time Seen by Provider: 09/02/23 17:10 Historian: patient Exam Limitations: no limitations Physician History: This is an overweight 38-year-old white female patient who has been seen in our emergency department 3 times in less than 1 month. They have all been for somewhat different issues. Today, the patient complains of abdominal pain, mu ltiple episodes of vomiting and diarrhea every hour since yesterday morning. Patient states that all family members in her household ate the same food and she is the only one with the symptoms. Patient denies chest pain. Patient denies shortness of breath. Patient does not have a sore throat. She denies cough. Patient is a daily smoker of cigarettes. Patient does have a history of hypertension, diabetes and hyperlipidemia as well as gastroesophageal reflux disease. Timing/Duration: yesterday, worse Activities at Onset: none Quality: aching Abdominal Pain Onset Location: generalized abdomen Severity of Pain-Max: mild (To moderate) Severity of Pain-Current: mild (To moderate) Modifying Factors: Improves With: vomiting, other (Diarrhea) Associated Symptoms: diarrhea, loss of appetite, nausea, vomiting, weakness Previous symptoms: no prior history, recently seen Allergies/Adverse Reactions: codeine Allergy (Verified 09/02/23 17:17) ketorolac [From Toradol] Allergy (Verified 09/02/23 17:17) morphine Allergy (Verified 09/02/23 17:17) ondansetron [From Zofran] Allergy (Verified 09/02/23 17:17) piroxicam [From Feldene] Allergy (Verified 09/02/23 17:17) Home Medications: Atorvastatin Calcium 40 mg PO HS 10/22/22 [History] Empagliflozin [Jardiance] 25 mg PO HS 10/22/22 [History] Fenofibrate Nanocrystallized [Fenofibrate] 145 mg PO HS 10/22/22 [History] Flecainide Acetate 50 mg PO BID 10/22/22 [History] Lamotrigine [Lamotrigine ER] 200 mg PO BID 10/22/22 [History] Lisinopril 10 mg [Zestril 10 MG] 10 mg PO HS 10/22/22 [History] Metformin HCl [Metformin ER Osmotic] 1,000 mg PO BID 10/22/22 [History] PANTOPRAZOLE 40 mg Tablet [Protonix 40MG Tablet] 40 mg PO HS 10/22/22 [History] Ropinirole HCl 2 mg PO HS 10/22/22 [History] Tizanidine HCl 4 mg [Zanaflex 4 MG] 4 mg PO TID 10/22/22 [History] Trazodone HCl 200 mg PO HS 10/22/22 [History] Venlafaxine HCl [Venlafaxine HCl ER] 150 mg PO HS 10/22/22 [History] Gabapentin 800 mg PO TID 08/13/23 [History] Hx Tetanus, Diphtheria Vaccination/Date Given: No Hx Influenza Vaccination/Date Given: No Hx Pneumococcal Vaccination/Date Given: Yes Travel Risk - International Travel Have you traveled outside of the country in past 3 weeks: No - Coronavirus Screening Are you exhibiting any of the following symptoms?: Yes Symptoms: Vomiting/Diarrhea - Vaccine Status Have you recieved a Covid-19 vaccination: No - Review of Systems Constitutional: Weakness Eyes: No Symptoms Ears, Nose, & Throat: No Symptoms Respiratory: No Symptoms Cardiac: No Symptoms Abdominal/Gastrointestinal: Abdominal Pain, Nausea, Vomiting, Diarrhea, Appetite Changes, No Constipation Genitourinary Symptoms: No Symptoms Musculoskeletal: No Symptoms Skin: No Symptoms Neurological: No Symptoms Psychological: No Symptoms Endocrine: No Symptoms Hematologic/Lymphatic: No Symptoms Immunological/Allergic: No Symptoms All Other Systems: Reviewed and Negative - Past Medical History Pertinent Past Medical History: Yes Neurological History: No Pertinent History ENT History: No Pertinent History Cardiac History: High Cholesterol Respiratory History: No Pertinent History Endocrine Medical History: Diabetes Type II Musculoskeletal History: Degenerative Disk Disease GI Medical History: GERD History: No Pertinent History Psycho-Social History: Depression Female Reproductive Disorders: Menstrual Problems - Past Surgical History Past Surgical History: Yes Cardiac: Other Gastrointestinal: Cholecystectomy, Hernia Repair Female Surgical History: Hysterectomy Other Surgical History: ablation - Social History Smoking Status: Current some day smoker How long have you smoked: 25 years Exposure to second hand smoke: Yes Drug Use: none Patient Lives Alone: No - Nursing Vital Signs Nursing Vital Signs: Initial Vital Signs Temperature 98.7 F 09/02/23 17:10 Pulse Rate 87 09/02/23 17:10 Respiratory Rate 16 09/02/23 17:10 Blood Pressure 114/69 09/02/23 17:10 O2 Sat by Pulse Oximetry 97 09/02/23 17:10 Pain Scale Pain Intensity 4 - Physical Exam General Appearance: no apparent distress, alert, anxiety Eye Exam: PERRL/EOMI, eyes nml inspection Ears, Nose, Throat Exam: normal ENT inspection, moist mucous membranes Neck Exam: normal inspection, non-tender, supple, full range of motion Respiratory Exam: normal breath sounds, lungs clear, airway intact, No chest tenderness, No respiratory distress Cardiovascular Exam: regular rate/rhythm, normal heart sounds, normal peripheral pulses Gastrointestinal/Abdomen Exam: soft, normal bowel sounds, tenderness (Mild diffuse with palpation), guarding (Mild diffuse with palpation) Pelvic Exam: not done Rectal Exam: not done Back Exam: normal inspection, normal range of motion, No CVA tenderness, No vertebral tenderness Extremity Exam: normal inspection, normal range of motion, pelvis stable Neurologic Exam: alert, oriented x 3, cooperative, convict guard II-XII nml as tested, normal mood/affect, nml cerebellar function, nml station & gait, sensation nml Skin Exam: normal color, warm, dry Lymphatic Exam: No adenopathy SpO2 Interpretation: normal O2 Delivery: Room Air Ordered Tests: Active Orders 24 hr Category Date Time Status IV Insertion STAT Care 09/02/23 17:30 Active ABDOMEN AND PELVIS W/0 CONTRAS [CT] Stat Exams 09/02/23 17:31 Taken AMYLASE Stat Lab 09/02/23 17:40 Completed CBC W DIFF Stat Lab 09/02/23 17:40 Completed CMP Stat Lab 09/02/23 17:40 Completed LIPASE Stat Lab 09/02/23 17:40 Completed MONO SCREEN Stat Lab 09/02/23 17:40 Completed UA W/RFX UR CULTURE Stat Lab 09/02/23 17:57 Completed Medication Summary Discontinued Medications Generic Name Dose Route Start Last Admin Trade Name Freq PRN Reason Stop Dose Admin Hydromorphone HCl 0.5 mg 09/02/23 17:30 09/02/23 17:40 Hydromorphone 1 Mg/1ml Inj IV 09/02/23 17:31 0.5 mg STAT ONE Administration Hydromorphone HCl Confirm 09/02/23 17:36 Hydromorphone 1 Mg/1ml Inj Administered 09/02/23 17:37 Dose 1 mg .ROUTE .STK-MED ONE Prochlorperazine Edisylate 5 mg 09/02/23 17:30 09/02/23 17:38 Prochlorperazine Edisylate 10 Mg/2 Ml Vial IV 09/02/23 17:31 5 mg STAT ONE Administration Prochlorperazine Edisylate Confirm 09/02/23 17:36 Prochlorperazine Edisylate 10 Mg/2 Ml Vial Administered 09/02/23 17:37 Dose 10 mg .ROUTE .STK-MED ONE Lab/Rad Data: Laboratory Result Diagrams 09/02/23 17:40 09/02/23 17:40 Laboratory Results 09/02/23 09/02/23 09/02/23 Range/Units 17:57 17:40 17:40 WBC (4.0-10.5) x10^3/uL RBC (4.1-5.4) x10^6/uL Hgb (12.0-16.0) g/dL Hct (35-47) % MCV (78-100) fL MCH (26-32) pg MCHC (32-36) g/dL RDW (11.5-14.0) % Plt Count (150-450) x10^3/uL MPV (7.5-11.0) fL Gran % (36.0-66.0) % Immature Gran % (Auto) (0.00-0.4) % Nucleat RBC Rel Count (0.00-0.1) % Eos # (Auto) (0-0.5) x10^3/uL Immature Gran # (Auto) (0.00-0.03) x10^3u/L Absolute Lymphs (auto) (1.0-4.6) x10^3/uL Absolute Monos (auto) (0.0-1.3) x10^3/uL Absolute Nucleated RBC (0.00-0.01) x10^3u/L Lymphocytes % (24.0-44.0) % Monocytes % (0.0-12.0) % Eosinophils % (0.00-5.0) % Basophils % (0.0-0.4) % Absolute Granulocytes (1.4-6.9) x10^3/uL Basophils # (0-0.4) x10^3/uL Sodium (137-145) mmol/L Potassium (3.5-5.1) mmol/L Chloride (98-107) mmol/L Carbon Dioxide (22-30) mmol/L Anion Gap (5-15) MEQ/L BUN (7-17) mg/dL Creatinine (0.52-1.04) mg/dL Estimated GFR ML/MIN Glucose (74-106) mg/dL Calcium (8.4-10.2) mg/dL Total Bilirubin (0.2-1.3) mg/dL AST (14-36) U/L ALT (0-35) U/L Alkaline Phosphatase (38-126) U/L Serum Total Protein (6.3-8.2) g/dL Albumin (3.5-5.0) g/dL Amylase (30-110) U/L Lipase (23-300) U/L Urine Color Yellow (Yellow) Urine Appearance Clear (Clear) Urine pH 6.0 (4.6-8.0) Ur Specific [place] >=1.030 A (1.005-1.030) Urine Protein Negative (Negative) Urine Glucose (UA) >=1000 A (Negative) mg/dL Urine Ketones Negative (Negative) Urine Blood Negative (Negative) Urine Nitrite Negative (Negative) Urine Bilirubin Negative (Negative) Urine Urobilinogen 0.2 (0.2) mg/dL Ur Leukocyte Esterase Negative (Negative) U Hyaline Cast (Auto) NONE SEEN (0-2) /LPF Urine Microscopic RBC 0-2 (0-5) /HPF Urine Microscopic WBC 0-2 (0-5) /HPF Ur Epithelial Cells Rare (None Seen) /HPF Urine Bacteria None Seen (None Seen) /HPF Urine Culture Reflexed NO (NO) Monoscreen WEAKLY POSITIVE A (NEGATIVE) Influenza Type A Ag NEGATIVE (NEGATIVE) Influenza Type B Ag NEGATIVE (NEGATIVE) RSV (PCR) NEGATIVE (NEGATIVE) SARS-CoV-2 (PCR) NEGATIVE (NEGATIVE) 09/02/23 09/02/23 Range/Units 17:40 17:40 WBC 15.6 H (4.0-10.5) x10^3/uL RBC 5.21 (4.1-5.4) x10^6/uL Hgb 14.1 (12.0-16.0) g/dL Hct 44.6 (35-47) % MCV 85.6 (78-100) fL MCH 27.1 (26-32) pg MCHC 31.6 L (32-36) g/dL RDW 14.6 H (11.5-14.0) % Plt Count 328 (150-450) x10^3/uL MPV 9.8 (7.5-11.0) fL Gran % 65.8 (36.0-66.0) % Immature Gran % (Auto) 0.4 (0.00-0.4) % Nucleat RBC Rel Count 0.0 (0.00-0.1) % Eos # (Auto) 0.03 (0-0.5) x10^3/uL Immature Gran # (Auto) 0.06 H (0.00-0.03) x10^3u/L Absolute Lymphs (auto) 4.25 (1.0-4.6) x10^3/uL Absolute Monos (auto) 0.93 (0.0-1.3) x10^3/uL Absolute Nucleated RBC 0.00 (0.00-0.01) x10^3u/L Lymphocytes % 27.2 (24.0-44.0) % Monocytes % 6.0 (0.0-12.0) % Eosinophils % 0.2 (0.00-5.0) % Basophils % 0.4 (0.0-0.4) % Absolute Granulocytes 10.28 H (1.4-6.9) x10^3/uL Basophils # 0.06 (0-0.4) x10^3/uL Sodium 134 L (137-145) mmol/L Potassium 3.9 (3.5-5.1) mmol/L Chloride 104 (98-107) mmol/L Carbon Dioxide 20 L (22-30) mmol/L Anion Gap 12.8 (5-15) MEQ/L BUN 21 H (7-17) mg/dL Creatinine 0.61 (0.52-1.04) mg/dL Estimated GFR 117.3 ML/MIN Glucose 204 H (74-106) mg/dL Calcium 9.4 (8.4-10.2) mg/dL Total Bilirubin 0.40 (0.2-1.3) mg/dL AST 22 (14-36) U/L ALT 21 (0-35) U/L Alkaline Phosphatase 60 (38-126) U/L Serum Total Protein 7.6 (6.3-8.2) g/dL Albumin 4.1 (3.5-5.0) g/dL Amylase 92 (30-110) U/L Lipase 242 (23-300) U/L Urine Color (Yellow) Urine Appearance (Clear) Urine pH (4.6-8.0) Ur Specific [place] (1.005-1.030) Urine Protein (Negative) Urine Glucose (UA) (Negative) mg/dL Urine Ketones (Negative) Urine Blood (Negative) Urine Nitrite (Negative) Urine Bilirubin (Negative) Urine Urobilinogen (0.2) mg/dL Ur Leukocyte Esterase (Negative) U Hyaline Cast (Auto) (0-2) /LPF Urine Microscopic RBC (0-5) /HPF Urine Microscopic WBC (0-5) /HPF Ur Epithelial Cells (None Seen) /HPF Urine Bacteria (None Seen) /HPF Urine Culture Reflexed (NO) Monoscreen (NEGATIVE) Influenza Type A Ag (NEGATIVE) Influenza Type B Ag (NEGATIVE) RSV (PCR) (NEGATIVE) SARS-CoV-2 (PCR) (NEGATIVE) - Progress Progress: improved Progress Note: 09/02/23 17:42 This patient's medical issue is 1 of moderate complexity. The level complex in the workup performed is based on review the patient's past medical history, review of the patient's medication list, review of patient drug allergy list, history present illness and physical findings on examination. This patient's workup includes placement of intravenous line, infusion of 1 L normal saline solution, infusion of Compazine intravenously, infusion of 1/2 mg Dilaudid intr avenously, amylase, lipase, CBC, CMP, urinalysis and CT scan of the abdomen pelvis without contrast. 09/02/23 19:30 Patient's laboratory data results were interpreted by me. The patient is positive for mononucleosis. Patient has an elevated white count. This may be secondary to multiple episodes of vomiting as well as a positive mononucleosis test. She has a mildly elevated glucose at 204. Patient is diabetic. No other significant laboratory results present. CT scan of the abdomen pelvis without contrast was interpreted by the radiologist and I reviewed the impression. Compared to the CT scan of the abdomen pelvis dated 08/06/2023, the stomach is distended with food. Otherwise the remainder of the abdominal pelvis CT scan without contrast is normal/negative Counseled pt/family regarding: lab results, diagnosis, rad results Medical Desision Making - Diagnostic Testing Diagnostic test were ordered, analyzed, and reviewed by me: Yes Radiological Interpretation: Reviewed by me, Teleradiologist Report - Risk of complications The pt has a mod risk of morbidity or mortality based on: Need for prescription drug management - Departure Departure Disposition: Home Clinical Impression: Mononucleosis Condition: Stable Critical Care Time: No Referrals: DOLORES MEJIA [Primary Care Provider] - Follow up/PCP as directed Additional Instructions: Drink plenty of clear liquids before advancing your diet. Once you are tolerating clear liquids well, advance your diet slowly. Avoid fatty greasy spicy foods. Take your medication as prescribed. Call your primary care provider tomorrow, 09/03/2023, to make arrangements for follow-up appointment the next 5 to 7 days Prescriptions: Prochlorperazine Maleate 10 mg PO Q8H PRN #10 tablet PRN Reason: Nausea/Vomiting
[2023-09-02 17:16] VITALS: TEMP 98.7
[2023-09-02] MEDS ORDERED: Compazine 10 MG/2 ML ONE (17:36)
[2023-09-02] MEDS ORDERED: Hydromorphone 1 mg/ml Injection ONE (17:36)
[2023-09-02] MEDS: Compazine 10 MG/2 ML IV ONE (17:38)
[2023-09-02] MEDS: Hydromorphone 1 mg/ml Injection IV ONE (17:40)
[2023-09-02 17:46] LABS: Absolute Neutrophil Ct (ANC) 10.28 x10^3/uL (1.4-6.9); BASOPHIL % 0.4 % (0.0-0.4); Basophil (Absolute #) 0.06 x10^3/uL (0-0.4); Eosinophil % 0.2 % (0.00-5.0); Eosinophil (Absolute #) 0.03 x10^3/uL (0-0.5); Hematocrit 44.6 % (35-47); Hemoglobin 14.1 g/dL (12.0-16.0); IMMATURE GRAN # 0.06 x10^3u/L (0.00-0.03); IMMATURE GRAN % 0.4 % (0.00-0.4); Lymphocyte (Absolute #) 4.25 x10^3/uL (1.0-4.6); Lymphocytes % 27.2 % (24.0-44.0); Mean Cell Volume 85.6 fL (78-100); Mean Corpuscular Hemoglobin 27.1 pg (26-32); Mean Corpuscular Hgb Concent. 31.6 g/dL (32-36); Mean Platelet Volume 9.8 fL (7.5-11.0); Monocyte (Absolute #) 0.93 x10^3/uL (0.0-1.3); Neutrophil % 65.8 % (36.0-66.0); Platelet Count 328 x10^3/uL (150-450); Red Blood Count 5.21 x10^6/uL (4.1-5.4); Red Cell Distribution Width 14.6 % (11.5-14.0); White Blood Count 15.6 x10^3/uL (4.0-10.5)
[2023-09-02 17:59] LABS: ALBUMIN 4.1 g/dL (3.5-5.0); ANION GAP 12.8 MEQ/L (5-15); BILIRUBIN,TOTAL 0.4 mg/dL (0.2-1.3); Calcium 9.4 mg/dL (8.4-10.2); Creatinine 1 0.61 mg/dL (0.52-1.04); EST GLOMERULAR FILTRATION RATE 117.3 ML/MIN; Potassium 3.9 mmol/L (3.5-5.1); Total Protein 7.6 g/dL (6.3-8.2)
[2023-09-02 18:08] LABS: Appearance Clear (Clear); Bacteria None Seen /HPF (None Seen); Bilirubin Negative (Negative); Blood Negative (Negative); Epithelial Cells Rare /HPF (None Seen); Glucose, Urine >=1000 mg/dL (Negative); Hyaline Casts NONE SEEN /LPF (0-2); Ketones Negative (Negative); Leukocyte Esterase Negative (Negative); Nitrite Negative (Negative); Protein,Urine Dip Negative (Negative); RBC 0-2 /HPF (0-5); Specific Gravity >=1.030 (1.005-1.030); Urobilinogen 0.2 mg/dL (0.2); WBC 0-2 /HPF (0-5)
[2023-09-02 18:23] LABS: INFLUENZA A NEGATIVE (NEGATIVE); INFLUENZA B NEGATIVE (NEGATIVE); RESPIRATORY SYNCTIAL VIRUS NEGATIVE (NEGATIVE); SARS-CoV-2 Xpert Express NEGATIVE (NEGATIVE)
[2023-09-02 18:28] LABS: ADD URINE CULTURE? NO (NO)
[2023-09-02 19:09] VITALS: PULSE 79
[2023-09-02] MEDS ORDERED: Sodium Chloride 0.9% 1000 ML 1,000 ML ONE (19:44)
[2023-09-02] MEDS: Sodium Chloride 0.9% 1000 ML 1,000 ML IV STA (19:46)
[2023-09-02 20:04] VITALS: BP 132/70; RESP 20; O2SAT 93
--- NOTE | 2023-09-03 08:38 | XRAY ---
Indication: Lower abdomen pain. Vomiting and diarrhea. Multiple contiguous axial images obtained through the abdomen and pelvis without contrast. Comparison: August 06, 2023 Lung bases clear. Heart not enlarged. Stomach now distended with food/fluid. Noncontrasted stomach and bowel loops appear nonobstructed with again normal appendix. Again cholecystectomy and hysterectomy. No free fluid/air. Remaining liver, pancreas, spleen, adrenal glands, kidneys, ureters, bladder, and aorta are unremarkable for noncontrast exam. Osseous structures intact again with L5-S1 fusion hardware. Impression: Continued negative CT abdomen/pelvis without contrast exam.
== END 2023-09-02 20:50 | disposition home or self-care (01) ==
LOC: ED 17:06
DX: B27.90 Infectious mononucleosis, unspecified without complication (principal); R11.2 Nausea with vomiting, unspecified; R10.9 Unspecified abdominal pain; R19.7 Diarrhea, unspecified; I10 Essential (primary) hypertension; E11.9 Type 2 diabetes mellitus without complications; E78.5 Hyperlipidemia, unspecified; Z79.84 Long term (current) use of oral hypoglycemic drugs; Z79.899 Other long term (current) drug therapy; Z28.310 Unvaccinated for COVID-19; Z72.0 Tobacco use
CPT/HCPCS: 0241U; 36000; 36415; 74176; 80053; 81001; 82150; 83690; 85025; 86308; 96360; 96374; 96375; 99284; J1170

== ENCOUNTER 2023-09-05 18:41 | Emergency (ER) | payer OTHER ==
[2023-09-05 19:27] VITALS: TEMP 97.8
[2023-09-05] MEDS ORDERED: Sodium Chloride 0.9% 1000 ML 1,000 ML IV STA (19:40)
--- NOTE | 2023-09-05 19:40 | ERPHSYRPT ---
- History of Present Illness Time Seen by Provider: 09/05/23 19:30 Source: patient Exam Limitations: no limitations Patient Subjective Stated Complaint: pt states "I was diagnosed with mono a couple days ago and I feel worse than I did then." Triage Nursing Assessment: pt ambulatory to bed by self, family member at bedside, pt alert and oriented x3, skin pwd, pt was recently diagnsoed with mono, pt is c/o body aches 6/10 and headache. pt states she is no longer vomiting but still feels nauseous. pt is prescribed compazine for home and has not taken a dose since yesterday, pt afebrile, vitals wnl Physician History: This is an overweight 38-year-old white female patient who has been seen in our emergency department on 08/06/2023, 08/13/2023, 09/02/2023 and today 09/05/2023. On the 09/02/2023 visit patient was diagnosed with mononucleosis. Patient's vomiting has stopped. However she does have intermittent nausea present. Her primary complaint today is that she just aches all over and is not any better that way. Patient is a daily smoker of cigarettes. Patient has multiple medical problems including hyperlipidemia, diabetes, hypertension, degenerative disc disease. Patient is on tizanidine and gabapentin for chronic pain issues. Timing/Duration: yesterday Severity: moderate Modifying Factors: Improves With: movement Associated Symptoms: nausea, No vomiting, No shortness of breath, No chest pain, No weakness Allergies/Adverse Reactions: codeine Allergy (Verified 09/05/23 19:27) ketorolac [From Toradol] Allergy (Verified 09/05/23 19:27) morphine Allergy (Verified 09/05/23 19:27) ondansetron [From Zofran] Allergy (Verified 09/05/23 19:27) piroxicam [From Feldene] Allergy (Verified 09/05/23 19:27) Home Medications: Atorvastatin Calcium 40 mg PO HS 10/22/22 [History] Empagliflozin [Jardiance] 25 mg PO HS 10/22/22 [History] Fenofibrate Nanocrystallized [Fenofibrate] 145 mg PO HS 10/22/22 [History] Lamotrigine [Lamotrigine ER] 200 mg PO BID 10/22/22 [History] Lisinopril 10 mg [Zestril 10 MG] 10 mg PO HS 10/22/22 [History] Metformin HCl [Metformin ER Osmotic] 1,000 mg PO BID 10/22/22 [History] PANTOPRAZOLE 40 mg Tablet [Protonix 40MG Tablet] 40 mg PO HS 10/22/22 [History] Ropinirole HCl 2 mg PO HS 10/22/22 [History] Tizanidine HCl 4 mg [Zanaflex 4 MG] 4 mg PO TID 10/22/22 [History] Trazodone HCl 200 mg PO HS 10/22/22 [History] Venlafaxine HCl [Venlafaxine HCl ER] 150 mg PO HS 10/22/22 [History] Gabapentin 800 mg PO TID 08/13/23 [History] Hx Tetanus, Diphtheria Vaccination/Date Given: No Hx Influenza Vaccination/Date Given: No Hx Pneumococcal Vaccination/Date Given: Yes Immunizations Up to Date: Yes Travel Risk - International Travel Have you traveled outside of the country in past 3 weeks: No - Coronavirus Screening Are you exhibiting any of the following symptoms?: Yes Symptoms: Headaches/Body Aches/Fatigue Close contact with a COVID-19 positive Pt in past 14-21 Days: No - Vaccine Status Have you recieved a Covid-19 vaccination: No - Review of Systems Constitutional: No Symptoms Eyes: No Symptoms Ears, Nose, & Throat: No Symptoms Respiratory: No Symptoms Cardiac: No Symptoms Abdominal/Gastrointestinal: No Symptoms Genitourinary Symptoms: No Symptoms Musculoskeletal: Arthralgias, Myalgias Skin: No Symptoms Neurological: No Symptoms Psychological: No Symptoms Endocrine: No Symptoms Hematologic/Lymphatic: No Symptoms Immunological/Allergic: No Symptoms All Other Systems: Reviewed and Negative - Past Medical History Pertinent Past Medical History: Yes Neurological History: No Pertinent History ENT History: No Pertinent History Cardiac History: High Cholesterol Respiratory History: No Pertinent History Endocrine Medical History: Diabetes Type II Musculoskeletal History: Degenerative Disk Disease GI Medical History: GERD History: No Pertinent History Psycho-Social History: Depression Female Reproductive Disorders: Menstrual Problems - Past Surgical History Past Surgical History: Yes Cardiac: Other Gastrointestinal: Cholecystectomy, Hernia Repair Female Surgical History: Hysterectomy Other Surgical History: ablation - Social History Smoking Status: Current some day smoker How long have you smoked: 25 years Exposure to second hand smoke: Yes Drug Use: none Patient Lives Alone: No - Female History Hx Last Menstrual Period: partial hysterecomy Hx Now: No - Nursing Vital Signs Nursing Vital Signs: Initial Vital Signs Temperature 97.8 F 09/05/23 19:26 Pulse Rate 77 09/05/23 19:26 Respiratory Rate 18 09/05/23 19:26 Blood Pressure 108/73 09/05/23 19:26 O2 Sat by Pulse Oximetry 97 09/05/23 19:26 Pain Scale Pain Intensity 3 - Physical Exam General Appearance: no apparent distress, alert, anxiety Eye Exam: PERRL/EOMI, eyes nml inspection Ears, Nose, Throat Exam: normal ENT inspection, moist mucous membranes, tonsillar exudate Neck Exam: normal inspection, non-tender, supple Respiratory Exam: normal breath sounds, lungs clear, airway intact, No chest tenderness, No respiratory distress Cardiovascular Exam: regular rate/rhythm, normal heart sounds, normal peripheral pulses Gastrointestinal/Abdomen Exam: soft, normal bowel sounds, No tenderness Pelvic Exam: not done Rectal Exam: not done Back Exam: normal inspection, normal range of motion, CVA tenderness Extremity Exam: normal inspection, normal range of motion, pelvis stable Neurologic Exam: alert, oriented x 3, cooperative, 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, normal mood/affect, nml cerebellar function, nml station & gait, sensation nml Skin Exam: normal color, warm, dry Lymphatic Exam: adenopathy SpO2 Interpretation: normal SpO2: 97 O2 Delivery: Room Air - Course Nursing assessment & vital signs reviewed: Yes EKG Interpreted by Me: RATE (95), Sinus Rhythm, NORMAL AXIS, NORMAL INTERVALS, NORMAL QRS, NORMAL ST-T, Other (No acute ischemic changes on today's twelve-lead EKG) Ordered Tests: Active Orders 24 hr Category Date Time Status EKG-ER Only STAT Care 09/05/23 19:40 Active IV Insertion STAT Care 09/05/23 19:40 Active Pulse Oximetry (ED) STAT Care 09/05/23 19:40 Active BLOOD CULTURE Stat Lab 09/05/23 20:18 Ordered CBC W DIFF Stat Lab 09/05/23 20:21 Completed CMP Stat Lab 09/05/23 20:21 Completed ESR [Erythrocyte Sedimentation Rate] Stat Lab 09/05/23 20:21 Completed Lactic Acid Stat Lab 09/05/23 20:10 Completed TROPONIN Q4H Lab 09/05/23 20:21 Completed TROPONIN Q4H Lab 09/05/23 23:45 Ordered UA W/RFX UR CULTURE Stat Lab 09/05/23 19:54 Completed Medication Summary Discontinued Medications Generic Name Dose Route Start Last Admin Trade Name Freq PRN Reason Stop Dose Admin Hydromorphone HCl 0.5 mg 09/05/23 19:59 09/05/23 20:21 Hydromorphone 1 Mg/1ml Inj IV 09/05/23 20:00 0.5 mg STAT ONE Administration Hydromorphone HCl Confirm 09/05/23 20:16 Hydromorphone 1 Mg/1ml Inj Administered 09/05/23 20:17 Dose 1 mg .ROUTE .STK-MED ONE Sodium Chloride 1,000 mls @ 999 mls/hr 09/05/23 19:40 09/05/23 20:18 Sodium Chloride 0.9% 1000 Ml IV 09/05/23 20:40 999 mls/hr .Q1H1M STA Administration Sodium Chloride Confirm 09/05/23 20:16 Sodium Chloride 0.9% 1000 Ml Administered 09/05/23 20:17 Dose 1,000 mls @ ud .ROUTE .STK-MED ONE Prochlorperazine Edisylate 5 mg 09/05/23 19:59 09/05/23 20:20 Prochlorperazine Edisylate 10 Mg/2 Ml Vial IV 09/05/23 20:00 5 mg STAT ONE Administration Prochlorperazine Edisylate Confirm 09/05/23 20:16 Prochlorperazine Edisylate 10 Mg/2 Ml Vial Administered 09/05/23 20:17 Dose 10 mg .ROUTE .STK-MED ONE Lab/Rad Data: Laboratory Result Diagrams 09/05/23 20:21 09/05/23 20:21 Laboratory Results 09/05/23 09/05/23 09/05/23 Range/Units 20:21 20:21 20:21 WBC (4.0-10.5) x10^3/uL RBC (4.1-5.4) x10^6/uL Hgb (12.0-16.0) g/dL Hct (35-47) % MCV (78-100) fL MCH (26-32) pg MCHC (32-36) g/dL RDW (11.5-14.0) % Plt Count (150-450) x10^3/uL MPV (7.5-11.0) fL Gran % (36.0-66.0) % Immature Gran % (Auto) (0.00-0.4) % Nucleat RBC Rel Count (0.00-0.1) % Eos # (Auto) (0-0.5) x10^3/uL Immature Gran # (Auto) (0.00-0.03) x10^3u/L Absolute Lymphs (auto) (1.0-4.6) x10^3/uL Absolute Monos (auto) (0.0-1.3) x10^3/uL Absolute Nucleated RBC (0.00-0.01) x10^3u/L Lymphocytes % (24.0-44.0) % Monocytes % (0.0-12.0) % Eosinophils % (0.00-5.0) % Basophils % (0.0-0.4) % Absolute Granulocytes (1.4-6.9) x10^3/uL Basophils # (0-0.4) x10^3/uL ESR 48 H (0-20) mm/hr Sodium 134 L (137-145) mmol/L Potassium 3.7 (3.5-5.1) mmol/L Chloride 104 (98-107) mmol/L Carbon Dioxide 22 (22-30) mmol/L Anion Gap 11.6 (5-15) MEQ/L BUN 19 H (7-17) mg/dL Creatinine 0.57 (0.52-1.04) mg/dL Estimated GFR 119.2 ML/MIN Glucose 215 H (74-106) mg/dL Lactic Acid (0.4-2.0) Calcium 9.6 (8.4-10.2) mg/dL Total Bilirubin 0.20 (0.2-1.3) mg/dL AST 16 (14-36) U/L ALT 17 (0-35) U/L Alkaline Phosphatase 63 (38-126) U/L Troponin I < 0.012 (0.000-0.034) ng/mL Serum Total Protein 7.0 (6.3-8.2) g/dL Albumin 3.9 (3.5-5.0) g/dL Urine Color (Yellow) Urine Appearance (Clear) Urine pH (4.6-8.0) Ur Specific [place] (1.005-1.030) Urine Protein (Negative) Urine Glucose (UA) (Negative) mg/dL Urine Ketones (Negative) Urine Blood (Negative) Urine Nitrite (Negative) Urine Bilirubin (Negative) Urine Urobilinogen (0.2) mg/dL Ur Leukocyte Esterase (Negative) U Hyaline Cast (Auto) (0-2) /LPF Urine Microscopic RBC (0-5) /HPF Urine Microscopic WBC (0-5) /HPF Ur Epithelial Cells (None Seen) /HPF Urine Bacteria (None Seen) /HPF Urine Culture Reflexed (NO) Influenza Type A Ag (NEGATIVE) Influenza Type B Ag (NEGATIVE) RSV (PCR) (NEGATIVE) SARS-CoV-2 (PCR) (NEGATIVE) 09/05/23 09/05/23 09/05/23 Range/Units 20:21 20:18 20:10 WBC 14.1 H (4.0-10.5) x10^3/uL RBC 5.17 (4.1-5.4) x10^6/uL Hgb 14.1 (12.0-16.0) g/dL Hct 43.4 (35-47) % MCV 83.9 (78-100) fL MCH 27.3 (26-32) pg MCHC 32.5 (32-36) g/dL RDW 14.6 H (11.5-14.0) % Plt Count 349 (150-450) x10^3/uL MPV 10.1 (7.5-11.0) fL Gran % 56.2 (36.0-66.0) % Immature Gran % (Auto) 0.4 (0.00-0.4) % Nucleat RBC Rel Count 0.0 (0.00-0.1) % Eos # (Auto) 0.10 (0-0.5) x10^3/uL Immature Gran # (Auto) 0.05 H (0.00-0.03) x10^3u/L Absolute Lymphs (auto) 4.81 H (1.0-4.6) x10^3/uL Absolute Monos (auto) 1.15 (0.0-1.3) x10^3/uL Absolute Nucleated RBC 0.00 (0.00-0.01) x10^3u/L Lymphocytes % 34.1 (24.0-44.0) % Monocytes % 8.2 (0.0-12.0) % Eosinophils % 0.7 (0.00-5.0) % Basophils % 0.4 (0.0-0.4) % Absolute Granulocytes 7.92 H (1.4-6.9) x10^3/uL Basophils # 0.06 (0-0.4) x10^3/uL ESR (0-20) mm/hr Sodium (137-145) mmol/L Potassium (3.5-5.1) mmol/L Chloride (98-107) mmol/L Carbon Dioxide (22-30) mmol/L Anion Gap (5-15) MEQ/L BUN (7-17) mg/dL Creatinine (0.52-1.04) mg/dL Estimated GFR ML/MIN Glucose (74-106) mg/dL Lactic Acid 2.0 (0.4-2.0) Calcium (8.4-10.2) mg/dL Total Bilirubin (0.2-1.3) mg/dL AST (14-36) U/L ALT (0-35) U/L Alkaline Phosphatase (38-126) U/L Troponin I (0.000-0.034) ng/mL Serum Total Protein (6.3-8.2) g/dL Albumin (3.5-5.0) g/dL Urine Color (Yellow) Urine Appearance (Clear) Urine pH (4.6-8.0) Ur Specific [place] (1.005-1.030) Urine Protein (Negative) Urine Glucose (UA) (Negative) mg/dL Urine Ketones (Negative) Urine Blood (Negative) Urine Nitrite (Negative) Urine Bilirubin (Negative) Urine Urobilinogen (0.2) mg/dL Ur Leukocyte Esterase (Negative) U Hyaline Cast (Auto) (0-2) /LPF Urine Microscopic RBC (0-5) /HPF Urine Microscopic WBC (0-5) /HPF Ur Epithelial Cells (None Seen) /HPF Urine Bacteria (None Seen) /HPF Urine Culture Reflexed (NO) Influenza Type A Ag NEGATIVE (NEGATIVE) Influenza Type B Ag NEGATIVE (NEGATIVE) RSV (PCR) NEGATIVE (NEGATIVE) SARS-CoV-2 (PCR) NEGATIVE (NEGATIVE) 09/05/23 Range/Units 19:54 WBC (4.0-10.5) x10^3/uL RBC (4.1-5.4) x10^6/uL Hgb (12.0-16.0) g/dL Hct (35-47) % MCV (78-100) fL MCH (26-32) pg MCHC (32-36) g/dL RDW (11.5-14.0) % Plt Count (150-450) x10^3/uL MPV (7.5-11.0) fL Gran % (36.0-66.0) % Immature Gran % (Auto) (0.00-0.4) % Nucleat RBC Rel Count (0.00-0.1) % Eos # (Auto) (0-0.5) x10^3/uL Immature Gran # (Auto) (0.00-0.03) x10^3u/L Absolute Lymphs (auto) (1.0-4.6) x10^3/uL Absolute Monos (auto) (0.0-1.3) x10^3/uL Absolute Nucleated RBC (0.00-0.01) x10^3u/L Lymphocytes % (24.0-44.0) % Monocytes % (0.0-12.0) % Eosinophils % (0.00-5.0) % Basophils % (0.0-0.4) % Absolute Granulocytes (1.4-6.9) x10^3/uL Basophils # (0-0.4) x10^3/uL ESR (0-20) mm/hr Sodium (137-145) mmol/L Potassium (3.5-5.1) mmol/L Chloride (98-107) mmol/L Carbon Dioxide (22-30) mmol/L Anion Gap (5-15) MEQ/L BUN (7-17) mg/dL Creatinine (0.52-1.04) mg/dL Estimated GFR ML/MIN Glucose (74-106) mg/dL Lactic Acid (0.4-2.0) Calcium (8.4-10.2) mg/dL Total Bilirubin (0.2-1.3) mg/dL AST (14-36) U/L ALT (0-35) U/L Alkaline Phosphatase (38-126) U/L Troponin I (0.000-0.034) ng/mL Serum Total Protein (6.3-8.2) g/dL Albumin (3.5-5.0) g/dL Urine Color Yellow (Yellow) Urine Appearance Clear (Clear) Urine pH 7.0 (4.6-8.0) Ur Specific [place] >=1.030 A (1.005-1.030) Urine Protein Negative (Negative) Urine Glucose (UA) >=1000 A (Negative) mg/dL Urine Ketones Negative (Negative) Urine Blood Negative (Negative) Urine Nitrite Negative (Negative) Urine Bilirubin Negative (Negative) Urine Urobilinogen 0.2 (0.2) mg/dL Ur Leukocyte Esterase Negative (Negative) U Hyaline Cast (Auto) NONE SEEN (0-2) /LPF Urine Microscopic RBC 0-2 (0-5) /HPF Urine Microscopic WBC 0-2 (0-5) /HPF Ur Epithelial Cells Few (None Seen) /HPF Urine Bacteria None Seen (None Seen) /HPF Urine Culture Reflexed NO (NO) Influenza Type A Ag (NEGATIVE) Influenza Type B Ag (NEGATIVE) RSV (PCR) (NEGATIVE) SARS-CoV-2 (PCR) (NEGATIVE) - Progress Progress: improved, pain not gone completely, re-examined Progress Note: 09/05/23 20:25 This patient's medical issue is 1 of moderate complexity. Level of complexity in the workup performed is based on review of the patient's past medical history, review of the patient's medication list, review the patient drug allergy list, history present illness and physical findings on examination. The workup in this patient includes placement of an intravenous line, infusion of normal saline solution, infusion of Compazine intravenously, infusion of Dilaudid intravenously, CBC, CMP, viral swabs, and urinalysis. I do not believe the patient needs any other type of radiographic studies. I will also order a twelve-lead EKG and a troponin level. This patient may be having persistent m ononucleosis symptoms. Based on her past medical history and medication list she has chronic pain issues. If there are no emergent findings, patient will be referred back to her primary care provider for further evaluation and management especially management of her pain issues. 09/05/23 21:10 Interpreted the patient's laboratory data results. The patient has leukocytosis. The remainder of the patient's laboratory study results did not show any type of acute or emergent findings. Patient does not have a specific headache. She has no neck pain. She has no cough. We are aware that the stephanie allred does have mononucleosis based on her workup performed on 09/02/2023. Patient's arthralgias and myalgias may be related to her chronic pain conditions which she will follow-up with tomorrow, 09/06/2023 with her primary care provider. Counseled pt/family regarding: lab results, diagnosis, need for follow-up Medical Desision Making - Diagnostic Testing Diagnostic test were ordered, analyzed, and reviewed by me: Yes - Risk of complications Low Risk: Low risk of morbidity from additional dx testing or treatment - Departure Departure Disposition: Home Clinical Impression: Leukocytosis, Arthralgia, Myalgia Condition: Stable Critical Care Time: No Referrals: DOLORES MEJIA [Primary Care Provider] - Follow up/PCP as directed Additional Instructions: Follow-up tomorrow, 09/06/2023 with your primary care provider to make arrangements for follow-up appointment in the next 2 to 3 days. Discussed with her the fact that you have had chronically elevated white blood cell counts over the last couple of months. Discussed the possibility referring you to a folder taper operator.
[2023-09-05] MEDS ORDERED: Hydromorphone 1 mg/ml Injection IV ONE (19:59)
[2023-09-05] MEDS ORDERED: Compazine 10 MG/2 ML IV ONE (19:59)
[2023-09-05] MEDS ORDERED: Sodium Chloride 0.9% 1000 ML 1,000 ML ONE (20:16)
[2023-09-05] MEDS ORDERED: Compazine 10 MG/2 ML ONE (20:16)
[2023-09-05] MEDS ORDERED: Hydromorphone 1 mg/ml Injection ONE (20:16)
[2023-09-05 20:19] LABS: Appearance Clear (Clear); Bacteria None Seen /HPF (None Seen); Bilirubin Negative (Negative); Blood Negative (Negative); Epithelial Cells Few /HPF (None Seen); Glucose, Urine >=1000 mg/dL (Negative); Hyaline Casts NONE SEEN /LPF (0-2); Ketones Negative (Negative); Leukocyte Esterase Negative (Negative); Nitrite Negative (Negative); Protein,Urine Dip Negative (Negative); RBC 0-2 /HPF (0-5); Specific Gravity >=1.030 (1.005-1.030); Urobilinogen 0.2 mg/dL (0.2); WBC 0-2 /HPF (0-5)
[2023-09-05 20:28] LABS: Absolute Neutrophil Ct (ANC) 7.92 x10^3/uL (1.4-6.9); BASOPHIL % 0.4 % (0.0-0.4); Basophil (Absolute #) 0.06 x10^3/uL (0-0.4); Eosinophil % 0.7 % (0.00-5.0); Hematocrit 43.4 % (35-47); Hemoglobin 14.1 g/dL (12.0-16.0); IMMATURE GRAN # 0.05 x10^3u/L (0.00-0.03); IMMATURE GRAN % 0.4 % (0.00-0.4); Lymphocyte (Absolute #) 4.81 x10^3/uL (1.0-4.6); Lymphocytes % 34.1 % (24.0-44.0); Mean Cell Volume 83.9 fL (78-100); Mean Corpuscular Hemoglobin 27.3 pg (26-32); Mean Corpuscular Hgb Concent. 32.5 g/dL (32-36); Mean Platelet Volume 10.1 fL (7.5-11.0); Monocyte (Absolute #) 1.15 x10^3/uL (0.0-1.3); Monocytes % 8.2 % (0.0-12.0); Neutrophil % 56.2 % (36.0-66.0); Platelet Count 349 x10^3/uL (150-450); Red Blood Count 5.17 x10^6/uL (4.1-5.4); Red Cell Distribution Width 14.6 % (11.5-14.0); White Blood Count 14.1 x10^3/uL (4.0-10.5)
[2023-09-05 20:30] LABS: ADD URINE CULTURE? NO (NO)
[2023-09-05 20:40] LABS: ALBUMIN 3.9 g/dL (3.5-5.0); ANION GAP 11.6 MEQ/L (5-15); BILIRUBIN,TOTAL 0.2 mg/dL (0.2-1.3); Calcium 9.6 mg/dL (8.4-10.2); Creatinine 1 0.57 mg/dL (0.52-1.04); EST GLOMERULAR FILTRATION RATE 119.2 ML/MIN; Potassium 3.7 mmol/L (3.5-5.1)
[2023-09-05 21:04] LABS: INFLUENZA A NEGATIVE (NEGATIVE); INFLUENZA B NEGATIVE (NEGATIVE); RESPIRATORY SYNCTIAL VIRUS NEGATIVE (NEGATIVE); SARS-CoV-2 Xpert Express NEGATIVE (NEGATIVE)
[2023-09-05 21:08] VITALS: BP 122/83; PULSE 81; RESP 17
[2023-09-05 21:14] VITALS: O2SAT 97
== END 2023-09-05 21:35 | disposition home or self-care (01) ==
LOC: ED 18:41
DX: D72.829 Elevated white blood cell count, unspecified (principal); M25.50 Pain in unspecified joint; M79.10 Myalgia, unspecified site; E78.5 Hyperlipidemia, unspecified; E11.9 Type 2 diabetes mellitus without complications; I10 Essential (primary) hypertension; Z79.84 Long term (current) use of oral hypoglycemic drugs; Z79.899 Other long term (current) drug therapy; Z28.310 Unvaccinated for COVID-19; Z72.0 Tobacco use
CPT/HCPCS: 0241U; 36000; 36415; 80053; 81001; 83605; 84484; 85025; 85652; 87040; 93005; 94760; 96374; 96375; 99284; J1170

== ENCOUNTER 2023-09-18 10:46 | Emergency (ER) | payer OTHER ==
[2023-09-18 10:53] VITALS: TEMP 97.1
[2023-09-18] MEDS: ECOTRIN 81 MG PO ONE (11:17)
[2023-09-18] MEDS ORDERED: BABY ASPIRIN 81 MG CHEW ONE (11:18)
[2023-09-18] MEDS ORDERED: DUONEB 0.5-3 MG/3 ml Neb IH ONE (11:19)
[2023-09-18] MEDS: DUONEB 0.5-3 MG/3 ml Neb IH ONE (11:22)
[2023-09-18] MEDS ORDERED: Zofran 4 MG/2 ML VIAL ONE (11:37)
[2023-09-18 11:40] LABS: Hematocrit 44.4 % (35-47); Hemoglobin 14.6 g/dL (12.0-16.0); Mean Cell Volume 83.9 fL (78-100); Mean Corpuscular Hemoglobin 27.6 pg (26-32); Mean Corpuscular Hgb Concent. 32.9 g/dL (32-36); Mean Platelet Volume 10.4 fL (7.5-11.0); Platelet Count 351 x10^3/uL (150-450); Red Blood Count 5.29 x10^6/uL (4.1-5.4); Red Cell Distribution Width 14.6 % (11.5-14.0); White Blood Count 12.9 x10^3/uL (4.0-10.5)
[2023-09-18] MEDS: Zofran 4 MG/2 ML VIAL IV ONE (11:41)
[2023-09-18] MEDS ORDERED: Reglan 10 MG/2 ML ONE (11:44)
[2023-09-18] MEDS: Reglan 10 MG/2 ML IV ONE (11:45)
[2023-09-18 11:48] LABS: ALBUMIN 4.2 g/dL (3.5-5.0); ANION GAP 11.3 MEQ/L (5-15); BILIRUBIN,TOTAL 0.4 mg/dL (0.2-1.3); Calcium 9.2 mg/dL (8.4-10.2); Creatinine 1 0.49 mg/dL (0.52-1.04); EST GLOMERULAR FILTRATION RATE 123.6 ML/MIN; Potassium 3.4 mmol/L (3.5-5.1); Total Protein 7.5 g/dL (6.3-8.2)
--- NOTE | 2023-09-18 12:01 | ERPHSYRPT ---
- History of Present Illness Time Seen by Provider: 09/18/23 10:58 Source: patient Exam Limitations: no limitations Patient Subjective Stated Complaint: PT HERE FOR SOB THAT STARTED THIS MORNING WITH PAIN TO LEFT BREAST OFF AND ON THAT RADIATES TO BACK, NO FEVER, WAS DX WITH MONO LAST WEEK AND PLACED ON ANTIBIOTICS FOR A ELPIDIO WHITE COUNT. Triage Nursing Assessment: PT ALERT, WALKED IN, RESP EASY, SKIN W/D/P. HAS DRY COUGH, NO EDEMA NOTED, MOVES ALL EXT WELL Physician History: 38 years old female with history of anx iety/depression/hypertension/hyperlipidemia/diabetes mellitus/GERD, recent mono on doxycycline for bronchitis presented in the ER with complaints of off-and-on chest pain left side with radiation to the back intermittently without any significant aggravating or relieving factors, reports 6/10 intensity with some associated shortness of breath at times. Patient does have history of palpitations status post ablation. Denies any fever or chills but does have minimal productive cough. Allergies/Adverse Reactions: codeine Allergy (Verified 09/18/23 10:51) ketorolac [From Toradol] Allergy (Verified 09/18/23 10:51) morphine Allergy (Verified 09/18/23 10:51) ondansetron [From Zofran] Allergy (Verified 09/18/23 10:51) piroxicam [From Feldene] Allergy (Verified 09/18/23 10:51) Home Medications: Atorvastatin Calcium 40 mg PO HS 10/22/22 [History] Empagliflozin [Jardiance] 25 mg PO HS 10/22/22 [History] Fenofibrate Nanocrystallized [Fenofibrate] 145 mg PO HS 10/22/22 [History] Lamotrigine [Lamotrigine ER] 200 mg PO BID 10/22/22 [History] Lisinopril 10 mg [Zestril 10 MG] 10 mg PO HS 10/22/22 [History] Metformin HCl [Metformin ER Osmotic] 1,000 mg PO BID 10/22/22 [History] PANTOPRAZOLE 40 mg Tablet [Protonix 40MG Tablet] 40 mg PO HS 10/22/22 [History] Ropinirole HCl 2 mg PO HS 10/22/22 [History] Tizanidine HCl 4 mg [Zanaflex 4 MG] 4 mg PO TID 10/22/22 [History] Trazodone HCl 200 mg PO HS 10/22/22 [History] Venlafaxine HCl [Venlafaxine HCl ER] 150 mg PO HS 10/22/22 [History] Gabapentin 800 mg PO TID 08/13/23 [History] Hx Tetanus, Diphtheria Vaccination/Date Given: No Hx Influenza Vaccination/Date Given: No Hx Pneumococcal Vaccination/Date Given: Yes Immunizations Up to Date: No Travel Risk - International Travel Have you traveled outside of the country in past 3 weeks: No - Coronavirus Screening Are you exhibiting any of the following symptoms?: Yes Symptoms: Shortness of Breath Close contact with a COVID-19 positive Pt in past 14-21 Days: No - Vaccine Status Have you recieved a Covid-19 vaccination: No - Review of Systems Constitutional: No Symptoms Eyes: No Symptoms Ears, Nose, & Throat: No Symptoms Respiratory: Cough, Dyspnea Cardiac: Chest Pain Abdominal/Gastrointestinal: No Symptoms Genitourinary Symptoms: No Symptoms Musculoskeletal: No Symptoms Skin: No Symptoms Neurological: No Symptoms Psychological: Anxiety Endocrine: No Symptoms Hematologic/Lymphatic: No Symptoms - Past Medical History Pertinent Past Medical History: Yes Neurological History: No Pertinent History ENT History: No Pertinent History Cardiac History: Arrhythmia, Coronary Artery Disease, High Cholesterol Respiratory History: No Pertinent History Endocrine Medical History: Diabetes Type II Musculoskeletal History: Degenerative Disk Disease GI Medical History: GERD History: No Pertinent History Psycho-Social History: Depression Female Reproductive Disorders: Menstrual Problems - Past Surgical History Past Surgical History: Yes Cardiac: Other Gastrointestinal: Cholecystectomy, Hernia Repair Female Surgical History: Hysterectomy Other Surgical History: ablation - Social History Smoking Status: Current every day smoker How long have you smoked: 25 years Exposure to second hand smoke: Yes Drug Use: none Patient Lives Alone: No - Female History Hx Last Menstrual Period: HYSTER Hx Now: No - Nursing Vital Signs Nursing Vital Signs: Initial Vital Signs Temperature 97.1 F 09/18/23 10:52 Pulse Rate 97 H 09/18/23 10:52 Respiratory Rate 18 09/18/23 10:52 Blood Pressure 128/90 09/18/23 10:52 O2 Sat by Pulse Oximetry 99 09/18/23 10:52 Pain Scale Pain Intensity 7 - Physical Exam General Appearance: no apparent distress, alert Eye Exam: PERRL/EOMI Ears, Nose, Throat Exam: hearing grossly normal, normal ENT inspection, normal pharynx Neck Exam: normal inspection, non-tender, supple, full range of motion Respiratory Exam: normal breath sounds, lungs clear Cardiovascular/Chest Exam: normal heart sounds, regular rate/rhythm Abdominal/Gastrointestinal Exam: soft, normal bowel sounds, No tenderness Extremity Exam: non-tender, normal range of motion Neurologic Exam: alert, oriented x 3, cooperative, surveillance supervisor II-XII nml as tested Skin Exam: normal color SpO2 Interpretation: normal SpO2: 96 O2 Delivery: Room Air Ordered Tests: Active Orders 24 hr Category Date Time Status CHEST 1 VIEW (PORTABLE) Stat Exams 09/18/23 11:12 Completed CHEST WITH CONTRAST [CT] Stat Exams 09/18/23 12:12 Completed CBC Stat Lab 09/18/23 11:43 Completed CMP Stat Lab 09/18/23 11:43 Completed D-DIMER QUANTITATIVE Stat Lab 09/18/23 11:43 Completed TROPONIN Q4H Lab 09/18/23 11:43 Completed TROPONIN Q4H Lab 09/18/23 14:00 Completed Medication Summary Discontinued Medications Generic Name Dose Route Start Last Admin Trade Name Freq PRN Reason Stop Dose Admin Albuterol/Ipratropium 3 ml 09/18/23 11:12 09/18/23 11:22 Ipratropium/Albuterol Sulfate 3 Ml Ampul.Neb IH 09/18/23 11:13 3 ml STAT ONE Administration Albuterol/Ipratropium Confirm 09/18/23 11:19 Ipratropium/Albuterol Sulfate 3 Ml Ampul.Neb Administered 09/18/23 11:20 Dose 3 ml IH .STK-MED ONE Aspirin 324 mg 09/18/23 11:12 09/18/23 11:17 Aspirin 81 Mg Tablet.Ec PO 09/18/23 11:13 324 mg 1XONLY ONE Administration Aspirin Confirm 09/18/23 11:18 Aspirin 81 Mg Tab.Chew Administered 09/18/23 11:19 Dose 324 mg .ROUTE .STK-MED ONE Hydromorphone HCl 0.5 mg 09/18/23 11:52 09/18/23 12:12 Hydromorphone 1 Mg/1ml Inj IV 09/18/23 11:53 0.5 mg STAT ONE Administration Hydromorphone HCl Confirm 09/18/23 12:10 Hydromorphone 1 Mg/1ml Inj Administered 09/18/23 12:11 Dose 1 mg .ROUTE .STK-MED ONE Metoclopramide HCl 10 mg 09/18/23 11:42 09/18/23 11:45 Metoclopramide Hcl 10 Mg/2 Ml Vial IV 09/18/23 11:43 10 mg STAT ONE Administration Metoclopramide HCl Confirm 09/18/23 11:44 Metoclopramide Hcl 10 Mg/2 Ml Vial Administered 09/18/23 11:45 Dose 10 mg .ROUTE .STK-MED ONE Ondansetron HCl 4 mg 09/18/23 11:32 09/18/23 11:41 Ondansetron Hcl 4 Mg/2 Ml Vial IV 09/18/23 11:33 Not Given STAT ONE Ondansetron HCl Confirm 09/18/23 11:37 Ondansetron Hcl 4 Mg/2 Ml Vial Administered 09/18/23 11:38 Dose 4 mg .ROUTE .STK-MED ONE Lab/Rad Data: Laboratory Result Diagrams 09/18/23 11:43 09/18/23 11:43 Laboratory Results 09/18/23 09/18/23 09/18/23 Range/Units 14:00 11:43 11:43 WBC (4.0-10.5) x10^3/uL RBC (4.1-5.4) x10^6/uL Hgb (12.0-16.0) g/dL Hct (35-47) % MCV (78-100) fL MCH (26-32) pg MCHC (32-36) g/dL RDW (11.5-14.0) % Plt Count (150-450) x10^3/uL MPV (7.5-11.0) fL D-Dimer 1.22 H* (0.0-0.50) mg/L Sodium (137-145) mmol/L Potassium (3.5-5.1) mmol/L Chloride (98-107) mmol/L Carbon Dioxide (22-30) mmol/L Anion Gap (5-15) MEQ/L BUN (7-17) mg/dL Creatinine (0.52-1.04) mg/dL Estimated GFR ML/MIN Glucose (74-106) mg/dL Calcium (8.4-10.2) mg/dL Total Bilirubin (0.2-1.3) mg/dL AST (14-36) U/L ALT (0-35) U/L Alkaline Phosphatase (38-126) U/L Troponin I < 0.012 < 0.012 (0.000-0.034) ng/mL Serum Total Protein (6.3-8.2) g/dL Albumin (3.5-5.0) g/dL 09/18/23 09/18/23 Range/Units 11:43 11:43 WBC 12.9 H (4.0-10.5) x10^3/uL RBC 5.29 (4.1-5.4) x10^6/uL Hgb 14.6 (12.0-16.0) g/dL Hct 44.4 (35-47) % MCV 83.9 (78-100) fL MCH 27.6 (26-32) pg MCHC 32.9 (32-36) g/dL RDW 14.6 H (11.5-14.0) % Plt Count 351 (150-450) x10^3/uL MPV 10.4 (7.5-11.0) fL D-Dimer (0.0-0.50) mg/L Sodium 137 (137-145) mmol/L Potassium 3.4 L (3.5-5.1) mmol/L Chloride 106 (98-107) mmol/L Carbon Dioxide 23 (22-30) mmol/L Anion Gap 11.3 (5-15) MEQ/L BUN 18 H (7-17) mg/dL Creatinine 0.49 L (0.52-1.04) mg/dL Estimated GFR 123.6 ML/MIN Glucose 177 H (74-106) mg/dL Calcium 9.2 (8.4-10.2) mg/dL Total Bilirubin 0.40 (0.2-1.3) mg/dL AST 20 (14-36) U/L ALT 19 (0-35) U/L Alkaline Phosphatase 72 (38-126) U/L Troponin I (0.000-0.034) ng/mL Serum Total Protein 7.5 (6.3-8.2) g/dL Albumin 4.2 (3.5-5.0) g/dL - Progress Progress: improved, re-examined Air Movement: good Progress Note: 09/18/23 23:12 38 years old is evaluated for shortness of breath and left-sided chest pain. EKG is no acute ST elevation. Negative troponins x 2. Patient has elevated D- dimer but CT is negative for PE, pneumonia, pneumothorax or aortic dissection. Lab work fairly unremarkable. I believe patient has bronchitis, feeling better after neb treatment and symptomatic care, recommend continue with antibiotics and will give a short course of steroids along with inhaler. Counseled on smoking cessation. Discussed signs symptoms of worsening needing return to ER which she seems understanding. Stable for discharge. Blood Culture(s) Obtained: Yes Antibiotics given: No Counseled pt/family regarding: lab results, diagnosis, need for follow-up, rad results, smoking cessation Medical Desision Making - Diagnostic Testing Diagnostic test were ordered, analyzed, and reviewed by me: Yes Radiological Interpretation: Interpreted by me, Reviewed by me, Teleradiologist Report - Risk of complications The pt has a mod risk of morbidity or mortality based on: Need for prescription drug management - Departure Departure Disposition: Home Clinical Impression: Acute bronchitis Condition: Stable Critical Care Time: No Referrals: DOLORES MEJIA [Primary Care Provider] - Follow up with PCP 2 days Instructions: Acute Bronchitis, Adult (DC) Prescriptions: Albuterol Sulfate [Albuterol Sulfate Hfa] 8.5 gm IH Q6H PRN 7 Days #1 inh PRN Reason: Cough Prednisone 20 mg [Deltasone 20 mg] 60 mg PO DAILY 5 Days #15 tablet
[2023-09-18] MEDS ORDERED: Hydromorphone 1 mg/ml Injection ONE (12:10)
[2023-09-18] MEDS: Hydromorphone 1 mg/ml Injection IV ONE (12:12)
--- NOTE | 2023-09-18 14:35 | XRAY ---
CLINICAL HISTORY: sob, PE? TECHNIQUE: Contiguous 3.[address] images of the chest were acquired with the administration of intravenous contrast. Coronal and sagittal reconstructions were obtained. 100 CC Isovue 370 was administered for post-contrast images. COMPARISON: None FINDINGS: No definite filling defect could be appreciated in the main pulmonary artery, right and left pulmonary arteries, and their visualized branches. The scanned pulmonary parenchyma shows no definite consolidative lesions. Posterior nodular pleural thickening seen in both lower lobes. No free or encysted pleural effusion. Minimal bilateral pleural thickening is noted in the lower lobes. Heart size is normal, and there is no pericardial effusion. No pathologically enlarged mediastinal, hilar, or axillary lymph node was identified. There is no definite mass lesion in the chest wall. The scanned upper abdomen reveals surgical absence of gall bladder and uncomplicated diverticulosis. Minimal degenerative changes are seen in the spine. IMPRESSION: 1. No definite CT evidence of Pulmonary embolism. If clinically suspicious, a follow-up study with proper PE protocol/dual-energy CT may be recommended. 2. Posterior nodular pleural thickening seen in both lower lobes. 3. No pulmonary mass, collapse, or consolidative changes. Electronically Signed by: Angel Ordonez MD. (09/18/2023 14:08:16 EST)
[2023-09-18 14:55] VITALS: BP 116/74; PULSE 82; RESP 19
--- NOTE | 2023-09-18 20:05 | XRAY ---
Indication: Chest pain. Comparison: April 01, 2023 Portable chest inflated and clear. Heart not enlarged. Bony thorax intact. No new/acute findings.
[2023-09-18 23:13] VITALS: O2SAT 96
== END 2023-09-18 15:17 | disposition home or self-care (01) ==
LOC: ED 10:46
DX: J20.9 Acute bronchitis, unspecified (principal); R07.9 Chest pain, unspecified; I10 Essential (primary) hypertension; E78.5 Hyperlipidemia, unspecified; E11.9 Type 2 diabetes mellitus without complications; Z79.84 Long term (current) use of oral hypoglycemic drugs; Z79.899 Other long term (current) drug therapy; Z79.52 Long term (current) use of systemic steroids; Z28.310 Unvaccinated for COVID-19; Z72.0 Tobacco use
CPT/HCPCS: 36415; 71045; 71260; 80053; 84484; 85027; 85379; 94640; 96374; 96375; 99284; J1170; J2405; A9270-GY

== ENCOUNTER 2023-10-08 20:34 | Emergency (ER) | payer OTHER ==
--- NOTE | 2023-10-08 21:05 | ERPHSYRPT ---
- History of Present Illness Time Seen by Provider: 10/08/23 21:04 Source: patient Exam Limitations: no limitations Physician History: 38yo f presents to ED w/ 12h left ankle/foot pain. Pt states pain started when she stepped awkwardly off of a step on her way to work. Pt states she has had throbbing pain in the ankle and heel that radiates up her left leg. Pt has been able to ambulate but endorses pain w/ ambulation, feels slightly unsteady when stepping on left foot. Pt denies any falls, denies direct trauma to the area, denies swelling in foot, ankle or calf. Method of Injury: other (stepped down from stair) Occurred: this morning Quality: aching, throbbing Severity of Pain-Max: moderate Severity of Pain-Current: mild Lower Extremities Pain: foot: left, ankle: left, heel: left Modifying Factors: Improves With: rest. Worsens With: movement Associated Symptoms: none Body Map: 1 - posterior aspect of heel Allergies/Adverse Reactions: codeine Allergy (Intermediate, Verified 10/08/23 20:45) Nausea and Vomiting ketorolac [From Toradol] Allergy (Intermediate, Verified 10/08/23 20:45) Nausea and Vomiting morphine Allergy (Intermediate, Verified 10/08/23 20:45) Hives ondansetron [From Zofran] Allergy (Intermediate, Verified 10/08/23 20:45) Nausea and Vomiting piroxicam [From Feldene] Allergy (Intermediate, Verified 10/08/23 20:45) Hives Home Medications: Atorvastatin Calcium 40 mg PO HS 10/22/22 [History] Empagliflozin [Jardiance] 25 mg PO HS 10/22/22 [History] Fenofibrate Nanocrystallized [Fenofibrate] 145 mg PO HS 10/22/22 [History] Lamotrigine [Lamotrigine ER] 200 mg PO BID 10/22/22 [History] Lisinopril 10 mg [Zestril 10 MG] 10 mg PO HS 10/22/22 [History] Metformin HCl [Metformin ER Osmotic] 1,000 mg PO BID 10/22/22 [History] PANTOPRAZOLE 40 mg Tablet [Protonix 40MG Tablet] 40 mg PO HS 10/22/22 [History] Ropinirole HCl 2 mg PO HS 10/22/22 [History] Tizanidine HCl 4 mg [Zanaflex 4 MG] 4 mg PO TID 10/22/22 [History] Trazodone HCl 200 mg PO HS 10/22/22 [History] Venlafaxine HCl [Venlafaxine HCl ER] 150 mg PO HS 10/22/22 [History] Gabapentin 800 mg PO TID 08/13/23 [History] Dulaglutide [Trulicity] 1.5 mg SQ WEEKLY 10/08/23 [History] Flecainide Acetate 50 mg PO BID 10/08/23 [History] Quetiapine Fumarate 100 mg [Seroquel 100 MG] 100 mg PO HS 10/08/23 [History] Hx Tetanus, Diphtheria Vaccination/Date Given: No Hx Influenza Vaccination/Date Given: No Hx Pneumococcal Vaccination/Date Given: Yes Travel Risk - Vaccine Status Have you recieved a Covid-19 vaccination: No - Review of Systems Constitutional: No Symptoms Respiratory: No Symptoms Cardiac: No Symptoms Musculoskeletal: Arthralgias - Past Medical History Pertinent Past Medical History: Yes Neurological History: No Pertinent History ENT History: No Pertinent History Cardiac History: Arrhythmia, Coronary Artery Disease, High Cholesterol Respiratory History: No Pertinent History Endocrine Medical History: Diabetes Type II Musculoskeletal History: Degenerative Disk Disease GI Medical History: GERD History: No Pertinent History Psycho-Social History: Depression Female Reproductive Disorders: Menstrual Problems - Past Surgical History Past Surgical History: Yes Cardiac: Other Gastrointestinal: Cholecystectomy, Hernia Repair Female Surgical History: Hysterectomy Other Surgical History: ablation - Social History Smoking Status: Current every day smoker How long have you smoked: 25 years Exposure to second hand smoke: Yes Drug Use: none Patient Lives Alone: No - Female History Hx Now: No - Nursing Vital Signs Nursing Vital Signs: Initial Vital Signs Temperature 97.0 F 10/08/23 20:45 Pulse Rate 78 10/08/23 20:45 Respiratory Rate 16 10/08/23 20:45 Blood Pressure 127/95 10/08/23 20:45 O2 Sat by Pulse Oximetry 97 10/08/23 20:45 Pain Scale Pain Intensity 5 - Physical Exam General Appearance: no apparent distress, alert Cardiovascular/Respiratory Exam: chest non-tender, normal breath sounds, regular rate/rhythm Legs Exam: bilateral leg: non-tender, normal inspection, no evidence of injury Knees Exam: bilateral knee: non-tender, normal inspection, no evidence of injury Ankle Exam: left ankle: other (negative david's), bilateral ankle: non- tender, normal inspection, normal range of motion, no evidence of injury Foot Exam: left foot: pain (TTP over posterior aspect of heel), soft tissue tenderness SpO2 Interpretation: normal SpO2: 100 O2 Delivery: Room Air Ordered Tests: Active Orders 24 hr Category Date Time Status ANKLE (3 VIEWS) Stat Exams 10/08/23 21:02 Taken FOOT (MINIMUM 3 VIEWS) Stat Exams 10/08/23 21:03 Taken LOWER LEG Stat Exams 10/08/23 21:03 Taken - Progress Progress: pain not gone completely, re-examined Progress Note: 10/08/23 22:23 xrays tib/fib, ankle, foot - no evidence of acute fracture, small heel spur noted on posterior aspect left heel likely achilles tendonitis vs epophisitis based on physical exam, unlikely to be achilles rupture, ankle sprain based on physical exam pt able to ambulate, will place in XOCHILT wrap for compression/comfort instructed to use ibuprofen/tylenol for pain control use ice/heat as needed for pain recommend f/u w/ orthopedic clinic - walk in Counseled pt/family regarding: need for follow-up, rad results Medical Desision Making - Diagnostic Testing Diagnostic test were ordered, analyzed, and reviewed by me: Yes Radiological Interpretation: Interpreted by me, Reviewed by me - Risk of complications Minimal Risk: Minimal risk of morbidity - Departure Departure Disposition: Home Clinical Impression: Achilles tendinitis of left lower extremity Condition: Stable Critical Care Time: No Referrals: DOLORES MEJIA [Primary Care Provider] - Follow up/PCP as directed Additional Instructions: will place in XOCHILT wrap for compression/comfort instructed to use ibuprofen/tylenol for pain control use ice/heat as needed for pain recommend f/u w/ orthopedic clinic - walk in
[2023-10-08 21:26] VITALS: TEMP 97
[2023-10-08 21:47] VITALS: BP 148/91; PULSE 68; RESP 20
[2023-10-08 22:24] VITALS: O2SAT 100
--- NOTE | 2023-10-09 07:56 | XRAY ---
Indication: Pain following injury. Comparison: None 2 view left lower leg demonstrates normal bones, articular, and soft tissues.
--- NOTE | 2023-10-09 07:59 | XRAY ---
Indication: Pain following injury. Comparison: None 3 nonweightbearing views left foot demonstrates small posterior heel spur. No other bony, articular, or soft tissue abnormalities.
--- NOTE | 2023-10-09 07:59 | XRAY ---
Indication: Pain following injury. Comparison: None 3 view left ankle demonstrates small posterior heel spur and 6 mm medial distal tibia sclerotic lesion, probable bone island. No other bony, articular, or soft tissue abnormalities.
== END 2023-10-08 23:10 | disposition home or self-care (01) ==
LOC: ED 20:34
DX: M76.62 Achilles tendinitis, left leg (principal)
CPT/HCPCS: 73590; 73610; 73630; 99282

== ENCOUNTER 2023-10-23 16:36 | Emergency (ER) | payer OTHER ==
[2023-10-23 17:29] VITALS: TEMP 97.4
[2023-10-23 17:36] VITALS: O2SAT 95
--- NOTE | 2023-10-23 17:58 | ERPHSYRPT ---
- History of Present Illness Time Seen by Provider: 10/23/23 17:56 Source: patient Exam Limitations: no limitations Patient Subjective Stated Complaint: C/O pain to lower back, neck, and left shoulder. Patient states she was lifting heavy objects in her home yesterday and thinks she injured herself. Triage Nursing Assessment: Patient ambulated back to ER. She is alert and oriented. Skin tone normal. No bruising or skin alterations noted to areas of c/o pain. Patient's neck is still. Physician History: C/O pain to lower back, neck, and left shoulder. Patient states she was lifting heavy objects in her home yesterday and thinks she injured herself. No other complaints Timing/Duration: today Severity: moderate Associated Symptoms: denies symptoms Allergies/Adverse Reactions: codeine Allergy (Intermediate, Verified 10/23/23 17:17) Nausea and Vomiting ketorolac [From Toradol] Allergy (Intermediate, Verified 10/23/23 17:17) Nausea and Vomiting morphine Allergy (Intermediate, Verified 10/23/23 17:17) Hives ondansetron [From Zofran] Allergy (Intermediate, Verified 10/23/23 17:17) Nausea and Vomiting piroxicam [From Feldene] Allergy (Intermediate, Verified 10/23/23 17:17) Hives Home Medications: Atorvastatin Calcium 40 mg PO HS 10/22/22 [History] Empagliflozin [Jardiance] 25 mg PO HS 10/22/22 [History] Fenofibrate Nanocrystallized [Fenofibrate] 145 mg PO HS 10/22/22 [History] Lamotrigine [Lamotrigine ER] 200 mg PO BID 10/22/22 [History] Lisinopril 10 mg [Zestril 10 MG] 10 mg PO HS 10/22/22 [History] Metformin HCl [Metformin ER Osmotic] 1,000 mg PO BID 10/22/22 [History] PANTOPRAZOLE 40 mg Tablet [Protonix 40MG Tablet] 40 mg PO HS 10/22/22 [History] Ropinirole HCl 2 mg PO HS 10/22/22 [History] Tizanidine HCl 4 mg [Zanaflex 4 MG] 4 mg PO TID 10/22/22 [History] Trazodone HCl 200 mg PO HS 10/22/22 [History] Venlafaxine HCl [Venlafaxine HCl ER] 150 mg PO HS 10/22/22 [History] Gabapentin 800 mg PO TID 08/13/23 [History] Dulaglutide [Trulicity] 1.5 mg SQ WEEKLY 10/08/23 [History] Flecainide Acetate 50 mg PO BID 10/08/23 [History] Quetiapine Fumarate 100 mg [Seroquel 100 MG] 100 mg PO HS 10/08/23 [History] Hx Tetanus, Diphtheria Vaccination/Date Given: Yes Hx Influenza Vaccination/Date Given: No Hx Pneumococcal Vaccination/Date Given: Yes Immunizations Up to Date: Yes Travel Risk - International Travel Have you traveled outside of the country in past 3 weeks: No - Emerging Infectious Disease Are you exhibiting symptoms associated with any current EIDs: No - Review of Systems Constitutional: No Fever, No Chills Eyes: No Symptoms Ears, Nose, & Throat: No Symptoms Respiratory: No Cough, No Dyspnea Cardiac: No Chest Pain, No Edema, No Syncope Abdominal/Gastrointestinal: No Abdominal Pain, No Nausea, No Vomiting, No Diarrhea Genitourinary Symptoms: No Dysuria Musculoskeletal: Arthralgias, Back Pain, Neck Pain, No Fall, No Injury Skin: No Rash Neurological: No Dizziness, No Focal Weakness, No Sensory Changes Psychological: No Symptoms Endocrine: No Symptoms All Other Systems: Reviewed and Negative - Past Medical History Pertinent Past Medical History: Yes Neurological History: No Pertinent History ENT History: No Pertinent History Cardiac History: Arrhythmia, Coronary Artery Disease, High Cholesterol Respiratory History: No Pertinent History Endocrine Medical History: Diabetes Type II Musculoskeletal History: Degenerative Disk Disease GI Medical History: GERD, Gallbladder Disease, Hernia History: No Pertinent History Psycho-Social History: Depression Female Reproductive Disorders: Menstrual Problems Other Medical History: PVCs with bigeminy - Past Surgical History Past Surgical History: Yes Neuro Surgical History: No Pertinent History Cardiac: Other Respiratory: No Pertinent History Gastrointestinal: Cholecystectomy, Hernia Repair Genitourinary: No Pertinent History Musculoskeletal: Orthopedic Surgery Female Surgical History: Hysterectomy Other Surgical History: ablation - Female History Hx Last Menstrual Period: No longer has them Hx Now: No - Social History Smoking Status: Current every day smoker How long have you smoked: 25 years Exposure to second hand smoke: Yes Drug Use: none Patient Lives Alone: No - Nursing Vital Signs Nursing Vital Signs: Initial Vital Signs Temperature 97.4 F 10/23/23 17:17 Pulse Rate 89 10/23/23 17:17 Respiratory Rate 18 10/23/23 17:17 Blood Pressure 113/84 10/23/23 17:17 O2 Sat by Pulse Oximetry 98 10/23/23 17:17 Pain Scale Pain Intensity 6 - Physical Exam General Appearance: no apparent distress, alert Eye Exam: PERRL/EOMI, eyes nml inspection Ears, Nose, Throat Exam: normal ENT inspection, TMs normal, pharynx normal, moist mucous membranes Neck Exam: normal inspection, non-tender, supple, full range of motion Respiratory Exam: normal breath sounds, lungs clear, No respiratory distress Cardiovascular Exam: regular rate/rhythm, normal heart sounds, normal peripheral pulses Gastrointestinal/Abdomen Exam: soft, normal bowel sounds, No tenderness, No mass Back Exam: normal inspection, normal range of motion, No CVA tenderness, No vertebral tenderness Extremity Exam: normal inspection, normal range of motion, pelvis stable Neurologic Exam: alert, oriented x 3, cooperative, normal mood/affect, nml cerebellar function, nml station & gait, sensation nml, No motor deficits Skin Exam: normal color, warm, dry, No rash Lymphatic Exam: No adenopathy SpO2: 95 - Course Nursing assessment & vital signs reviewed: Yes Ordered Tests: Medication Summary Discontinued Medications Generic Name Dose Route Start Last Admin Trade Name Freq PRN Reason Stop Dose Admin Diphenhydramine HCl 25 mg 10/23/23 17:51 Diphenhydramine Hcl 50 Mg/Ml Vial IM 10/23/23 17:52 STAT ONE Orphenadrine Citrate 60 mg 10/23/23 17:51 Orphenadrine Citrate 60 Mg/2 Ml Vial IM 10/23/23 17:52 STAT ONE - Progress Progress: improved, pain not gone completely Counseled pt/family regarding: diagnosis, need for follow-up Medical Desision Making - Independent Historian Additional History obtained from: Family - Diagnostic Testing Diagnostic test were ordered, analyzed, and reviewed by me: No - Risk of complications Minimal Risk: Minimal risk of morbidity - Departure Departure Disposition: Home Clinical Impression: Myalgia Arthralgia Qualifiers: Joint pain location: unspecified Qualified Code(s): M25.50 - Pain in unspecified joint Condition: Stable Critical Care Time: No Referrals: DOLORES MEJIA [Primary Care Provider] - Follow up/PCP as directed Instructions: Chronic Pain (DC), Muscle and Bone Pain (DC) Additional Instructions: Discharge/Care Plan COREY LIPSCOMB was seen on 10/23/23 in the Emergency Room. The patient was counseled regarding Diagnosis,Lab results, Imaging studies, need for follow up and when to return to the Emergency Room. Prescriptions given: Discharge Note I have spoken with the patient and/or caregivers. I have explained the patient's condition, diagnosis and treatment plan based on the information available to me at this time. I have answered the patient's and/or caregiver's questions and addressed any concerns. The patient and/or caregivers have as good understanding of the patient's diagnosis, condition and treatment plan as can be expected at this point. The vital signs have been stable. The patient's condition is stable and appropriate for discharge from the emergency department. The patient will pursue further outpatient evaluation with the primary care physician or other designated or consulting physician as outlined in the discharge instructions. The patient and/or caregivers are agreeable to this plan of care and follow-up instructions have been explained in detail. The patient and/or caregivers have received these instruction. The patient/and or caregivers are aware that any significant change in condition or worsening of symptoms should prompt an immediate return to this or the closest emergency department or call 911. COREY LIPSCOMB was seen on 10/23/23 n the Emergency Room. At that time you were treated for an emergent condition, during your visit Laboratory, Radiology and/or other procedures may have been ordered. It is very important that you follow-up with your Primary Care Physician DOLORES MEJIA within the next 24-48 hours to review your Emergency Room visit and the final results of testing that was ordered. Some test results such as Urine Cultures, Blood Cultures, and other cultures if ordered will not be finalized for 24-48 hours. If you do not have a Primary Care Provider please call the medical records department at [phone] ext [phone] to obtain a copy of your results or you may sign into our patient portal to obtain these results by visiting us @ [email or web address] and completing the following steps: 1. Click on the Patient Portal link 2. Click the Patient Self Enrollment Link to complete the enrollment form and entering your 3. Once the enrollment form is completed you will receive an email with a temporary ID and password at the email address you provided. 4. Next choose a user name and password. Your user name must be at least 4 characters long and your password must be at least 4 characters long. 5. Choose a security question from the list and provide your answer to the question. If you already have signed into the Health Portal you may access your Health Care Information 22/02 by the following steps: 1. Login to our website @ [email or web address] 2. Enter your original user name and password. FAQS The [facility] Health Portal is an online tool that contains your Lab Results, Radiology Reports, Visit History, Discharge Instructions and Health Summary Lab and Radiology Results will not be available for 72 hours on the portal. The Portal is a secure site, passwords are encryted and URLs are re-written so they cannot be copied and pasted. You and authorized family members are the only ones who can access your Portal. Also there is a timeout feature that protects your information if you leave the Portal page open. If you have technical difficulty please use the Contact Us link on the page this will allow you to submit any questions you have regarding the Portal or you may contact the Medical Record Department at [phone] ext [phone].
[2023-10-23] MEDS ORDERED: BENADRYL 50 MG/ML ONE (18:41)
[2023-10-23] MEDS ORDERED: Norflex 60 MG/2 ML ONE (18:41)
[2023-10-23] MEDS: Norflex 60 MG/2 ML IM ONE (18:43)
[2023-10-23] MEDS: BENADRYL 50 MG/ML IM ONE (18:43)
[2023-10-23] MEDS ORDERED: NORCO 5/325 MG ONE (18:59)
[2023-10-23] MEDS: NORCO 5/325 MG PO ONE (19:01)
[2023-10-23 19:04] VITALS: BP 126/80; PULSE 70; RESP 16
== END 2023-10-23 19:05 | disposition home or self-care (01) ==
LOC: ED 16:36
DX: M79.10 Myalgia, unspecified site (principal); M25.50 Pain in unspecified joint; M54.50 Low back pain, unspecified; M54.2 Cervicalgia; M25.512 Pain in left shoulder; E78.5 Hyperlipidemia, unspecified; E11.9 Type 2 diabetes mellitus without complications; Z79.84 Long term (current) use of oral hypoglycemic drugs; Z79.85 Long-term (current) use of injectable non-insulin antidiabetic drugs; Z79.899 Other long term (current) drug therapy; Z72.0 Tobacco use
CPT/HCPCS: 96372; 99283; J1200; J2360; A9270-GY

== ENCOUNTER 2023-10-24 20:56 | Emergency (ER) | payer OTHER ==
[2023-10-24 22:21] VITALS: TEMP 96.9
--- NOTE | 2023-10-24 22:47 | ERPHSYRPT ---
- History of Present Illness Time Seen by Provider: 10/24/23 22:47 Source: patient Patient Subjective Stated Complaint: pt states that mid day on Wednesday10/22/23 she started having left posterior lateral neck and left shoulder while lifting heavy boxes without use of appropriate body mechanics. originally rated it approx 3/10 scale then 10/23/23 she noted very limited ROM to neck due to pain and increase in intensity of pain which was "tolerable" rated 6/10 and came to ED. pt reports medications she rec'd in ED 10/23/23 as well as the take home medications helped but today the stiffness, limited ROM, and pain are no longer tolerable and she doesn't have any more medications. Triage Nursing Assessment: pt ambulated into room 9 independently with slow steady gait after standing on scale for weight acquisition. pt is alert and oriented times three, able to move all extremities, able to speak in complete sentences, and with resp even and unlabored. denies numbness or tingling at this time but for approx 45mins this afternoon she experienced numbness and tingling to fingers on left hand. denies loss of bowel or bladder control. denies fever, cough, chills, sob, difficulty breathing, n/v, cp, or other ill feelings. very limited ROM to neck in all directions due to pain. bilat radial and pedal pulses palpable. all extremities with normal color, cap refill, sensation, strength, and movement. Allergies/Adverse Reactions: codeine Allergy (Intermediate, Verified 10/24/23 22:00) Nausea and Vomiting ketorolac [From Toradol] Allergy (Intermediate, Verified 10/24/23 22:00) Nausea and Vomiting morphine Allergy (Intermediate, Verified 10/24/23 22:00) Hives ondansetron [From Zofran] Allergy (Intermediate, Verified 10/24/23 22:00) Nausea and Vomiting piroxicam [From Feldene] Allergy (Intermediate, Verified 10/24/23 22:00) Hives Home Medications: Atorvastatin Calcium 40 mg PO HS 10/22/22 [History] Empagliflozin [Jardiance] 25 mg PO HS 10/22/22 [History] Fenofibrate Nanocrystallized [Fenofibrate] 145 mg PO HS 10/22/22 [History] Lamotrigine [Lamotrigine ER] 200 mg PO BID 10/22/22 [History] Lisinopril 10 mg [Zestril 10 MG] 10 mg PO HS 10/22/22 [History] Metformin HCl [Metformin ER Osmotic] 1,000 mg PO BID 10/22/22 [History] PANTOPRAZOLE 40 mg Tablet [Protonix 40MG Tablet] 40 mg PO HS 10/22/22 [History] Ropinirole HCl 2 mg PO HS 10/22/22 [History] Tizanidine HCl 4 mg [Zanaflex 4 MG] 4 mg PO TID 10/22/22 [History] Trazodone HCl 200 mg PO HS 10/22/22 [History] Venlafaxine HCl [Venlafaxine HCl ER] 150 mg PO HS 10/22/22 [History] Gabapentin 800 mg PO TID 08/13/23 [History] Dulaglutide [Trulicity] 1.5 mg SQ WEEKLY 10/08/23 [History] Flecainide Acetate 50 mg PO BID 10/08/23 [History] Quetiapine Fumarate 100 mg [Seroquel 100 MG] 100 mg PO HS 10/08/23 [History] Semaglutide [Ozempic] 0.25 mg SQ WEEKLY 10/24/23 [History] Hx Tetanus, Diphtheria Vaccination/Date Given: Yes Hx Influenza Vaccination/Date Given: No Hx Pneumococcal Vaccination/Date Given: Yes Immunizations Up to Date: Yes Travel Risk - International Travel Have you traveled outside of the country in past 3 weeks: No - Emerging Infectious Disease Are you exhibiting symptoms associated with any current EIDs: No - Past Medical History Pertinent Past Medical History: Yes Neurological History: No Pertinent History ENT History: No Pertinent History Cardiac History: Arrhythmia, Coronary Artery Disease, High Cholesterol Respiratory History: No Pertinent History Endocrine Medical History: Diabetes Type II Musculoskeletal History: Degenerative Disk Disease GI Medical History: GERD, Gallbladder Disease, Hernia History: No Pertinent History Psycho-Social History: Depression Female Reproductive Disorders: Menstrual Problems Other Medical History: PVCs with bigeminy - Past Surgical History Past Surgical History: Yes Neuro Surgical History: No Pertinent History Cardiac: Other Respiratory: No Pertinent History Gastrointestinal: Cholecystectomy, Hernia Repair Genitourinary: No Pertinent History Musculoskeletal: Orthopedic Surgery Female Surgical History: Hysterectomy Other Surgical History: cardiac ablation. lumbar fusion - Female History Hx Last Menstrual Period: 2014 hysterectomy Hx Now: No - Social History Smoking Status: Current every day smoker How long have you smoked: 13yo Exposure to second hand smoke: Yes Drug Use: none Patient Lives Alone: No - Nursing Vital Signs Nursing Vital Signs: Initial Vital Signs Temperature 96.9 F 10/24/23 22:05 Pulse Rate 96 H 10/24/23 22:05 Respiratory Rate 20 10/24/23 22:05 Blood Pressure 127/90 10/24/23 22:05 O2 Sat by Pulse Oximetry 96 10/24/23 22:05 Pain Scale Pain Intensity 8 - Physical Exam SpO2: 96 - Course EKG Interpreted by Me: RATE, Sinus Rhythm, NORMAL ST-T, Other (qtcb 477) Ordered Tests: Active Orders 24 hr Category Date Time Status EKG-ER Only STAT Care 10/24/23 23:03 Active Medication Summary Discontinued Medications Generic Name Dose Route Start Last Admin Trade Name Freq PRN Reason Stop Dose Admin Droperidol 1.25 mg 10/24/23 23:02 10/24/23 23:18 Droperidol 5 Mg/2 Ml Vial IM 10/24/23 23:03 1.25 mg STAT ONE Administration Droperidol Confirm 10/24/23 23:13 Droperidol 5 Mg/2 Ml Vial Administered 10/24/23 23:14 Dose 5 mg .ROUTE .STK-MED ONE - Progress Progress: improved Progress Note: 10/24/23 23:15 Droperidol IM given ekg showed qtcb 477 - wnl, will monitor 10/24/23 23:42 strain/sprain of left trapezius no indication for imaging at this time based on mechanism of injury, lack of neurologic symptoms Pt reports significant improvement after medication given, reports pain is still present but tolerable, requesting to go home plan for dc home w/ PCP follow up - aMtilde De Santiago, recommend PT as outpatient for strengthening/stretching ice, rest, ibuprofen are appropriate for pain control Can continue prescribed muscle relaxants instructed to return to ED if: start feeling heart palpitations, chest pain, numbness/tingling in left upper extremity, blurry vision, weakness of left upper extremity 10/24/23 23:49 10/24/23 23:49 Counseled pt/family regarding: diagnosis, need for follow-up Medical Desision Making - Diagnostic Testing Diagnostic test were ordered, analyzed, and reviewed by me: No - Risk of complications Minimal Risk: Minimal risk of morbidity - Departure Departure Disposition: Home Clinical Impression: Trapezius muscle strain Qualifiers: Encounter type: initial encounter Laterality: left Qualified Code(s): S46.812A - Strain of other muscles, fascia and tendons at shoulder and upper arm level, left arm, initial encounter Condition: Stable Critical Care Time: No Referrals: DOLORES MEJIA [Primary Care Provider] - Follow up/PCP as directed Additional Instructions: plan for dc home w/ PCP follow up - Matilde De Santiago, recommend PT as outpatient for strengthening/stretching ice, rest, ibuprofen are appropriate for pain control Can continue prescribed muscle relaxants instructed to return to ED if: start feeling heart palpitations, chest pain, numbness/tingling in left upper extremity, blurry vision, weakness of left upper extremity
[2023-10-24 23:11] VITALS: PULSE 95
[2023-10-25 00:10] VITALS: BP 140/86; RESP 18; O2SAT 95
== END 2023-10-25 00:07 | disposition home or self-care (01) ==
LOC: ED 20:56
DX: S46.812A Strain of other muscles, fascia and tendons at shoulder and upper arm level, left arm, initial encounter (principal); X50.0XXA Overexertion from strenuous movement or load, initial encounter; M54.2 Cervicalgia; E78.5 Hyperlipidemia, unspecified; E11.9 Type 2 diabetes mellitus without complications; Z79.84 Long term (current) use of oral hypoglycemic drugs; Z79.85 Long-term (current) use of injectable non-insulin antidiabetic drugs; Z79.899 Other long term (current) drug therapy
CPT/HCPCS: 93005; 96372; 99283

== ENCOUNTER 2023-11-17 06:51 | Day surgery (SDC) | payer OTHER ==
[2023-11-17] MEDS ORDERED: LIDOCAINE HCL 2% 100 MG/5 ML IJ ONE (06:52)
[2023-11-17] MEDS ORDERED: Depo-Medrol 40 MG/ML IM ONE (06:52)
[2023-11-17] MEDS ORDERED: Versed 2 MG/2 ML Injection ONE (08:04)
[2023-11-17] MEDS ORDERED: DIPRIVAN 200 MG/20 ML IV ONE (08:42)
[2023-11-17] MEDS ORDERED: Lactated Ringers 1,000 ML IV ONE (09:17)
--- NOTE | 2023-11-17 12:18 | XRAY ---
Indication: Bilateral L4-S1 MBB. Intraoperative fluoroscopy provided for 17 seconds. Single digital spot image submitted for interpretation demonstrates posterior needle tips projecting over the expected left and right L4-S1 nerve roots. Correlate with intraoperative findings/report. Incidental L4-L5 fusion hardware.
--- NOTE | 2023-11-17 12:33 | XRAY ---
17 seconds of fluoroscopy was used in surgery for a bilateral L4-S1 MBB.
== END 2023-11-17 09:07 | disposition home or self-care (01) ==
LOC: SDC-PAIN 06:51
PROVIDERS: ATTEND Psychiatry & Neurology Pain Medicine
DX: M47.816 Spondylosis without myelopathy or radiculopathy, lumbar region (principal); E11.9 Type 2 diabetes mellitus without complications
CPT/HCPCS: 64493; 64494; 72020; 77002; 82947; J1010; J2250; J2704

== ENCOUNTER 2023-12-08 06:54 | Day surgery (SDC) | payer OTHER ==
[2023-12-08] MEDS ORDERED: BUPIVACAINE 0.5% VIAL IJ ONE (06:55)
[2023-12-08] MEDS ORDERED: DIPRIVAN 200 MG/20 ML IV ONE ×2 (08:29→08:37)
[2023-12-08] MEDS ORDERED: Lactated Ringers 1,000 ML IV ONE (08:38)
--- NOTE | 2023-12-08 11:39 | XRAY ---
Indication: Bilateral L4-S1 MBB. Intraoperative fluoroscopy provided for 54 seconds. Single digital spot image submitted for interpretation demonstrates posterior needle tips projecting over the expected left and right L4-S1 nerve roots. Correlate with intraoperative findings/report. Incidental L4-L5 fusion hardware.
--- NOTE | 2023-12-08 12:47 | XRAY ---
54 seconds of fluoroscopy was used in surgery for a bilateral L4-S1 MBB.
== END 2023-12-08 09:05 | disposition home or self-care (01) ==
LOC: SDC-PAIN 06:54
PROVIDERS: ATTEND Psychiatry & Neurology Pain Medicine
DX: M47.816 Spondylosis without myelopathy or radiculopathy, lumbar region (principal); E11.9 Type 2 diabetes mellitus without complications
CPT/HCPCS: 64493; 64494; 72020; 77002; 82947; J2704

== ENCOUNTER 2024-01-14 20:25 | Observation (INO) | payer OTHER ==
[2024-01-14] MEDS ORDERED: D50W 50 ml Abboject IV ONE ×2 (20:48→21:56)
[2024-01-14] MEDS: D50W 50 ml Abboject IV ONE ×2 (20:50→21:55)
--- NOTE | 2024-01-14 21:03 | ERPHSYRPT ---
- History of Present Illness Time Seen by Provider: 01/14/24 20:37 Source: patient Exam Limitations: no limitations Physician History: 38-year-old female with history of type 2 diabetes mellitus, anxiety/depression/bipolar disorder, hypertension, hyperlipidemia, GERD on Ozempic and Jardiance/metformin presented in the ER with complaint of generalized weakness fatigue tiredness since 6 PM. Patient checked her glucose and it was in 60s. Patient reports mild nausea, lightheadedness with minimal headache and sweating since 6 PM. Patient denies any fever or chills or difficulty breathing. No history of hypoglycemia in the past. Patient has a glucose in 30s on presentation in the ER and is given D50 with improvement to 225. Patient is feeling better. Allergies/Adverse Reactions: codeine Allergy (Intermediate, Verified 01/14/24 20:52) Nausea and Vomiting ketorolac [From Toradol] Allergy (Intermediate, Verified 01/14/24 20:52) Nausea and Vomiting morphine Allergy (Intermediate, Verified 01/14/24 20:52) Hives ondansetron [From Zofran] Allergy (Intermediate, Verified 01/14/24 20:52) Nausea and Vomiting piroxicam [From Feldene] Allergy (Intermediate, Verified 01/14/24 20:52) Hives Home Medications: Atorvastatin Calcium 40 mg PO HS 10/22/22 [History] Fenofibrate Nanocrystallized [Fenofibrate] 145 mg PO HS 10/22/22 [History] Lamotrigine [Lamotrigine ER] 200 mg PO BID 10/22/22 [History] Lisinopril 10 mg [Zestril 10 MG] 10 mg PO HS 10/22/22 [History] PANTOPRAZOLE 40 mg Tablet [Protonix 40MG Tablet] 40 mg PO HS 10/22/22 [History] Ropinirole HCl 2 mg PO HS 10/22/22 [History] Tizanidine HCl 4 mg [Zanaflex 4 MG] 4 mg PO TID 10/22/22 [History] Trazodone HCl 200 mg PO HS 10/22/22 [History] Venlafaxine HCl [Venlafaxine HCl ER] 150 mg PO HS 10/22/22 [History] Gabapentin 800 mg PO TID 08/13/23 [History] Quetiapine Fumarate 100 mg [Seroquel 100 MG] 100 mg PO HS PRN PRN 10/08/23 [History] Semaglutide [Ozempic] 1 mg SQ WEEKLY 10/24/23 [History] Empagliflozin/Metformin HCl [Synjardy Xr 25-1,000 mg Tablet] 1 tab PO DAILY 01/14/24 [History] Oxycodone HCl/Acetaminophen [Oxycodon-Acetaminophen 7.5-300] 1 tab PO BID PRN PRN 01/14/24 [History] Hx Tetanus, Diphtheria Vaccination/Date Given: Yes Hx Influenza Vaccination/Date Given: No Hx Pneumococcal Vaccination/Date Given: Yes Travel Risk - Emerging Infectious Disease Are you exhibiting symptoms associated with any current EIDs: No - Review of Systems Constitutional: Fatigue, Weakness Eyes: No Symptoms Ears, Nose, & Throat: No Symptoms Respiratory: No Symptoms Cardiac: No Symptoms Abdominal/Gastrointestinal: Nausea Genitourinary Symptoms: No Symptoms Musculoskeletal: Myalgias Skin: No Symptoms Neurological: Dizziness, Headache Psychological: No Symptoms Endocrine: No Symptoms Hematologic/Lymphatic: No Symptoms Immunological/Allergic: No Symptoms - Past Medical History Pertinent Past Medical History: Yes Neurological History: No Pertinent History ENT History: No Pertinent History Cardiac History: Arrhythmia, Coronary Artery Disease, High Cholesterol Respiratory History: No Pertinent History Endocrine Medical History: Diabetes Type II Musculoskeletal History: Degenerative Disk Disease GI Medical History: GERD, Gallbladder Disease, Hernia History: No Pertinent History Psycho-Social History: Depression Female Reproductive Disorders: Menstrual Problems Other Medical History: PVCs with bigeminy - Past Surgical History Past Surgical History: Yes Neuro Surgical History: No Pertinent History Cardiac: Other Respiratory: No Pertinent History Gastrointestinal: Cholecystectomy, Hernia Repair Genitourinary: No Pertinent History Musculoskeletal: Orthopedic Surgery Female Surgical History: Hysterectomy Other Surgical History: cardiac ablation. lumbar fusion - Social History Smoking Status: Current every day smoker How long have you smoked: 13yo Exposure to second hand smoke: Yes Drug Use: none Patient Lives Alone: No - Social Determinants of Health Will the patient participate in the screening: Yes Do you worry about a steady place to live?: No In the past 12 months,have you had to go without utilities?: No Transportation Issues: No Has anyone in your support network made you feel unsafe?: No Have you or anyone in your house had to go without enough: Choose not to answer - Nursing Vital Signs Nursing Vital Signs: Initial Vital Signs Temperature 98 F 01/14/24 20:58 Pulse Rate 95 H 01/14/24 20:58 Respiratory Rate 18 01/14/24 20:58 Blood Pressure 138/71 01/14/24 20:58 O2 Sat by Pulse Oximetry 97 01/14/24 20:58 Pain Scale Pain Intensity 8 - Physical Exam General Appearance: no apparent distress, alert Eye Exam: PERRL/EOMI Ears, Nose, Throat Exam: normal ENT inspection, TMs normal, pharynx normal, moist mucous membranes Neck Exam: normal inspection, non-tender, supple, full range of motion Respiratory Exam: normal breath sounds, lungs clear Cardiovascular Exam: regular rate/rhythm, normal heart sounds Gastrointestinal/Abdomen Exam: soft, normal bowel sounds, tenderness (Minimal epigastric) Back Exam: normal inspection, normal range of motion Extremity Exam: normal inspection, normal range of motion, pelvis stable Neurologic Exam: alert, oriented x 3, cooperative, loan collector II-XII nml as tested Skin Exam: normal color SpO2 Interpretation: normal SpO2: 97 O2 Delivery: Room Air - Course Nursing assessment & vital signs reviewed: Yes EKG Interpreted by Me: RATE (90), Sinus Rhythm, Left [place] Deviation, prolonged QT interval, Left Bundle Branch Block, Q-wave, Non-specific ST Changes Ordered Tests: Active Orders 24 hr Category Date Time Status EKG-ER Only STAT Care 01/14/24 21:01 Active IV Insertion STAT Care 01/14/24 21:01 Active ABDOMEN AND PELVIS W/0 CONTRAS [CT] Stat Exams 01/14/24 21:18 Taken CHEST WITHOUT CONTRAST [CT] Stat Exams 01/14/24 21:18 Taken BLOOD CULTURE Stat Lab 01/14/24 20:00 Received CBC W DIFF Stat Lab 01/14/24 21:00 Results CMP Stat Lab 01/14/24 21:00 Completed HCG QUALITATIVE, SERUM Stat Lab 01/14/24 21:00 Completed LIPASE Stat Lab 01/14/24 21:00 Completed Lactic Acid Stat Lab 01/14/24 21:01 Completed Lactic Acid Stat Lab 01/14/24 23:19 Received Manual Differential NC Stat Lab 01/14/24 21:00 Results POCT GLUCOSE Stat Lab 01/14/24 20:55 Completed POCT GLUCOSE Stat Lab 01/14/24 21:55 Completed POCT GLUCOSE Stat Lab 01/14/24 22:35 Completed PROCALCITONIN Stat Lab 01/14/24 21:00 Completed Pathologist Review Stat Lab 01/14/24 21:00 Results TROPONIN Q4H Lab 01/14/24 21:00 Completed TROPONIN Q4H Lab 01/15/24 01:15 Ordered TROPONIN Q4H Lab 01/15/24 05:15 Ordered UA W/RFX UR CULTURE Stat Lab 01/14/24 22:20 Completed Medication Summary Discontinued Medications Generic Name Dose Route Start Last Admin Trade Name Jean PRN Reason Stop Dose Admin Acetaminophen 975 mg 01/14/24 21:01 01/14/24 22:10 Acetaminophen 325 Mg Tablet PO 01/14/24 21:02 975 mg STAT ONE Administration Acetaminophen Confirm 01/14/24 22:06 Acetaminophen 325 Mg Tablet Administered 01/14/24 22:07 Dose 975 mg .ROUTE .STK-MED ONE Dextrose Confirm 01/14/24 20:48 Dextrose 50%-Water 50 Ml Abboject Administered 01/14/24 20:49 Dose 50 ml IV .STK-MED ONE Dextrose 50 ml 01/14/24 20:45 01/14/24 20:50 Dextrose 50%-Water 50 Ml Abboject IV 01/14/24 20:46 50 ml STAT ONE Administration Dextrose Confirm 01/14/24 21:56 Dextrose 50%-Water 50 Ml Abboject Administered 01/14/24 21:57 Dose 50 ml IV .STK-MED ONE Diphenhydramine HCl 25 mg 01/14/24 21:01 01/14/24 22:22 Diphenhydramine Hcl 50 Mg/Ml Vial IV 01/14/24 21:02 25 mg STAT ONE Administration Diphenhydramine HCl Confirm 01/14/24 22:06 Diphenhydramine Hcl 50 Mg/Ml Vial Administered 01/14/24 22:07 Dose 50 mg .ROUTE .STK-MED ONE Fentanyl Citrate 50 mcg 01/14/24 22:49 Fentanyl Citrate 100 Mcg/2 Ml* Vial IV 01/14/24 22:50 STAT ONE Sodium Chloride 1,000 mls @ 999 mls/hr 01/14/24 21:01 01/14/24 22:17 Sodium Chloride 0.9% 1000 Ml IV 01/14/24 22:01 999 mls/hr .Q1H1M STA Administration Dextrose Confirm 01/14/24 21:56 Dextrose 10% 250 Ml Administered 01/14/24 21:57 Dose 250 mls @ ud IV .STK-MED ONE Sodium Chloride Confirm 01/14/24 22:07 Sodium Chloride 0.9% 1000 Ml Administered 01/14/24 22:08 Dose 1,000 mls @ ud .ROUTE .STK-MED ONE Metoclopramide HCl 10 mg 01/14/24 21:01 01/14/24 22:19 Metoclopramide Hcl 10 Mg/2 Ml Vial IV 01/14/24 21:02 10 mg STAT ONE Administration Metoclopramide HCl Confirm 01/14/24 22:07 Metoclopramide Hcl 10 Mg/2 Ml Vial Administered 01/14/24 22:08 Dose 10 mg .ROUTE .STK-MED ONE Lab/Rad Data: Laboratory Result Diagrams 01/14/24 21:00 01/14/24 21:00 Laboratory Results 01/14/24 01/14/24 01/14/24 Range/Units 22:35 22:20 21:55 WBC (3.98-10.04) x10^3/uL RBC (3.93-5.22) x10^6/uL Hgb (11.2-15.7) g/dL Hct (34.1-44.9) % MCV (79.4-94.8) fL MCH (25.6-32.2) pg MCHC (32.2-35.5) g/dL RDW (11.7-14.4) % Plt Count (182-369) x10^3/uL MPV (9.4-12.3) fL Segmented Neutrophils (1.56-6.13) % Lymphocytes (Manual) (24-44) % Monocytes (Manual) (0.0-12.0) % Platelet Estimate (NORMAL) RBC Morphology Smear Path Review Sodium (135-145) mmol/L Potassium (3.5-5.1) mmol/L Chloride (98-107) mmol/L Carbon Dioxide (22-30) mmol/L Anion Gap (5-15) MEQ/L BUN (7-17) mg/dL Creatinine (0.52-1.04) mg/dL Estimated GFR ML/MIN Glucose (74-106) mg/dL POC Glucometer 187 H 52 L (74 to 106) mg/dL Lactic Acid (0.4-2.0) Calcium (8.4-10.2) mg/dL Total Bilirubin (0.2-1.3) mg/dL AST (14-36) U/L ALT (0-35) U/L Alkaline Phosphatase (38-126) U/L Troponin I (0.000-0.033) ng/mL Serum Total Protein (6.3-8.2) g/dL Albumin (3.5-5.0) g/dL Lipase (23-300) U/L Procalcitonin (0.030-0.080) ng/mL Serum HCG, Qual (NEGATIVE) Urine Color Yellow (Yellow) Urine Appearance Clear (Clear) Urine pH 6.5 (4.6-8.0) Ur Specific Grover <=1.005 (1.005-1.030) Urine Protein Negative (Negative) Urine Glucose (UA) >=1000 A (Negative) mg/dL Urine Ketones Negative (Negative) Urine Blood Negative (Negative) Urine Nitrite Negative (Negative) Urine Bilirubin Negative (Negative) Urine Urobilinogen 0.2 (0.2) mg/dL Ur Leukocyte Esterase Negative (Negative) U Hyaline Cast (Auto) NONE SEEN (0-2) /LPF Urine Microscopic RBC 0-2 (0-5) /HPF Urine Microscopic WBC 0-2 (0-5) /HPF Ur Epithelial Cells None Seen (None Seen) /HPF Urine Bacteria None Seen (None Seen) /HPF Urine Culture Reflexed NO (NO) 01/14/24 01/14/24 01/14/24 Range/Units 21:01 21:00 21:00 WBC (3.98-10.04) x10^3/uL RBC (3.93-5.22) x10^6/uL Hgb (11.2-15.7) g/dL Hct (34.1-44.9) % MCV (79.4-94.8) fL MCH (25.6-32.2) pg MCHC (32.2-35.5) g/dL RDW (11.7-14.4) % Plt Count (182-369) x10^3/uL MPV (9.4-12.3) fL Segmented Neutrophils (1.56-6.13) % Lymphocytes (Manual) (24-44) % Monocytes (Manual) (0.0-12.0) % Platelet Estimate (NORMAL) RBC Morphology Smear Path Review Sodium (135-145) mmol/L Potassium (3.5-5.1) mmol/L Chloride (98-107) mmol/L Carbon Dioxide (22-30) mmol/L Anion Gap (5-15) MEQ/L BUN (7-17) mg/dL Creatinine (0.52-1.04) mg/dL Estimated GFR ML/MIN Glucose (74-106) mg/dL POC Glucometer (74 to 106) mg/dL Lactic Acid 3.3 H (0.4-2.0) Calcium (8.4-10.2) mg/dL Total Bilirubin (0.2-1.3) mg/dL AST (14-36) U/L ALT (0-35) U/L Alkaline Phosphatase (38-126) U/L Troponin I (0.000-0.033) ng/mL Serum Total Protein (6.3-8.2) g/dL Albumin (3.5-5.0) g/dL Lipase (23-300) U/L Procalcitonin 0.035 (0.030-0.080) ng/mL Serum HCG, Qual NEGATIVE (NEGATIVE) Urine Color (Yellow) Urine Appearance (Clear) Urine pH (4.6-8.0) Ur Specific Grover (1.005-1.030) Urine Protein (Negative) Urine Glucose (UA) (Negative) mg/dL Urine Ketones (Negative) Urine Blood (Negative) Urine Nitrite (Negative) Urine Bilirubin (Negative) Urine Urobilinogen (0.2) mg/dL Ur Leukocyte Esterase (Negative) U Hyaline Cast (Auto) (0-2) /LPF Urine Microscopic RBC (0-5) /HPF Urine Microscopic WBC (0-5) /HPF Ur Epithelial Cells (None Seen) /HPF Urine Bacteria (None Seen) /HPF Urine Culture Reflexed (NO) 01/14/24 01/14/24 01/14/24 Range/Units 21:00 21:00 21:00 WBC 31.3 H* (3.98-10.04) x10^3/uL RBC 5.32 H (3.93-5.22) x10^6/uL Hgb 14.3 (11.2-15.7) g/dL Hct 42.8 (34.1-44.9) % MCV 80.5 (79.4-94.8) fL MCH 26.9 (25.6-32.2) pg MCHC 33.4 (32.2-35.5) g/dL RDW 14.4 (11.7-14.4) % Plt Count 440 H (182-369) x10^3/uL MPV 10.2 (9.4-12.3) fL Segmented Neutrophils 75 H (1.56-6.13) % Lymphocytes (Manual) 24 (24-44) % Monocytes (Manual) 1 (0.0-12.0) % Platelet Estimate NORMAL (NORMAL) RBC Morphology NORMAL Smear Path Review Pending Sodium 137 (135-145) mmol/L Potassium 3.2 L (3.5-5.1) mmol/L Chloride 102 (98-107) mmol/L Carbon Dioxide 24 (22-30) mmol/L Anion Gap 14.7 (5-15) MEQ/L BUN 12 (7-17) mg/dL Creatinine 0.56 (0.52-1.04) mg/dL Estimated GFR 119.7 ML/MIN Glucose 45 L* (74-106) mg/dL POC Glucometer (74 to 106) mg/dL Lactic Acid (0.4-2.0) Calcium 9.8 (8.4-10.2) mg/dL Total Bilirubin 0.50 (0.2-1.3) mg/dL AST 22 (14-36) U/L ALT 22 (0-35) U/L Alkaline Phosphatase 67 (38-126) U/L Troponin I < 0.012 (0.000-0.033) ng/mL Serum Total Protein 7.5 (6.3-8.2) g/dL Albumin 4.1 (3.5-5.0) g/dL Lipase 54 (23-300) U/L Procalcitonin (0.030-0.080) ng/mL Serum HCG, Qual (NEGATIVE) Urine Color (Yellow) Urine Appearance (Clear) Urine pH (4.6-8.0) Ur Specific [place] (1.005-1.030) Urine Protein (Negative) Urine Glucose (UA) (Negative) mg/dL Urine Ketones (Negative) Urine Blood (Negative) Urine Nitrite (Negative) Urine Bilirubin (Negative) Urine Urobilinogen (0.2) mg/dL Ur Leukocyte Esterase (Negative) U Hyaline Cast (Auto) (0-2) /LPF Urine Microscopic RBC (0-5) /HPF Urine Microscopic WBC (0-5) /HPF Ur Epithelial Cells (None Seen) /HPF Urine Bacteria (None Seen) /HPF Urine Culture Reflexed (NO) 01/14/24 Range/Units 20:55 WBC (3.98-10.04) x10^3/uL RBC (3.93-5.22) x10^6/uL Hgb (11.2-15.7) g/dL Hct (34.1-44.9) % MCV (79.4-94.8) fL MCH (25.6-32.2) pg MCHC (32.2-35.5) g/dL RDW (11.7-14.4) % Plt Count (182-369) x10^3/uL MPV (9.4-12.3) fL Segmented Neutrophils (1.56-6.13) % Lymphocytes (Manual) (24-44) % Monocytes (Manual) (0.0-12.0) % Platelet Estimate (NORMAL) RBC Morphology Smear Path Review Sodium (135-145) mmol/L Potassium (3.5-5.1) mmol/L Chloride (98-107) mmol/L Carbon Dioxide (22-30) mmol/L Anion Gap (5-15) MEQ/L BUN (7-17) mg/dL Creatinine (0.52-1.04) mg/dL Estimated GFR ML/MIN Glucose (74-106) mg/dL POC Glucometer 228 H (74 to 106) mg/dL Lactic Acid (0.4-2.0) Calcium (8.4-10.2) mg/dL Total Bilirubin (0.2-1.3) mg/dL AST (14-36) U/L ALT (0-35) U/L Alkaline Phosphatase (38-126) U/L Troponin I (0.000-0.033) ng/mL Serum Total Protein (6.3-8.2) g/dL Albumin (3.5-5.0) g/dL Lipase (23-300) U/L Procalcitonin (0.030-0.080) ng/mL Serum HCG, Qual (NEGATIVE) Urine Color (Yellow) Urine Appearance (Clear) Urine pH (4.6-8.0) Ur Specific [place] (1.005-1.030) Urine Protein (Negative) Urine Glucose (UA) (Negative) mg/dL Urine Ketones (Negative) Urine Blood (Negative) Urine Nitrite (Negative) Urine Bilirubin (Negative) Urine Urobilinogen (0.2) mg/dL Ur Leukocyte Esterase (Negative) U Hyaline Cast (Auto) (0-2) /LPF Urine Microscopic RBC (0-5) /HPF Urine Microscopic WBC (0-5) /HPF Ur Epithelial Cells (None Seen) /HPF Urine Bacteria (None Seen) /HPF Urine Culture Reflexed (NO) - Progress Progress: improved, re-examined Progress Note: 01/14/24 23:28 38 years old is evaluated in the ER for hypoglycemia. Patient glucose was in 40s on presentation, given D50 ampule and it improved to 25, given fluids and on recheck it is dropping again in 50s. Given another half ampoule of D50 and started on D10 at a rate of 50 mL/h. Workup showed white count of 31, fairly unremarkable chemistries otherwise with normal renal functions but a lactate of 3.3. Patient has no UTI. She has mild headache but no signs of meningismus and nonfocal neuroexam, given symptomatic treatment. Feeling better on reevaluation. She was having some nausea and epigastric pain, EKG is sinus rhythm with no ST elevation and negative initial troponins. I have obtained CT chest abdomen pelvis without contrast because of such a high white count which are unremarkable for any acute infectious/inflammatory/acute findings. This could be reactionary and needs to be trended. Blood cultures are pending. On recheck glucose is 180s, discussed with Dr. Platt hospitalist, reviewed history, workup and agreed with admission. I have discussed the results of workup with patient and family and plan of admission which they understand and agree with it. 01/14/24 23:31 Discussed with : Emiliana Will see patient in: hospital (observation) Counseled pt/family regarding: lab results, diagnosis, need for follow-up, rad results Medical Desision Making - Independent Historian Additional History obtained from: Spouse - Discussion of managment Care discussed with:: hospitalist (Dr. Platt) Reviewed:: Test results Agreed on:: Treatment plan, place in obs Will see patient: in hospital - Diagnostic Testing Diagnostic test were ordered, analyzed, and reviewed by me: Yes Radiological Interpretation: Reviewed by me, Teleradiologist Report - Risk of complications The pt has a mod risk of morbidity or mortality based on: Need for prescription drug management The pt has a high risk of morbidity or mortality based on: Drug therapy requiring intensive monitoring for toxicity, Decision regarding hospitilization or escalation of hosp level of care - Departure Departure Disposition: Observation Clinical Impression: Hypoglycemia, Leukocytosis Condition: Stable Critical Care Time: Yes Critical Care Time(excluding separately billable procedures): Critical 30-74 mins Referrals: DOLORES MEJIA [Primary Care Provider] - Follow up/PCP as directed
[2024-01-14 21:09] LABS: Hematocrit 42.8 % (34.1-44.9); Hemoglobin 14.3 g/dL (11.2-15.7); Mean Cell Volume 80.5 fL (79.4-94.8); Mean Corpuscular Hemoglobin 26.9 pg (25.6-32.2); Mean Corpuscular Hgb Concent. 33.4 g/dL (32.2-35.5); Mean Platelet Volume 10.2 fL (9.4-12.3); Platelet Count 440 x10^3/uL (182-369); Red Blood Count 5.32 x10^6/uL (3.93-5.22); Red Cell Distribution Width 14.4 % (11.7-14.4)
[2024-01-14 21:14] LABS: HCG SERUM TEST NEGATIVE (NEGATIVE)
[2024-01-14 21:15] LABS: White Blood Count 31.3 x10^3/uL (3.98-10.04)
[2024-01-14 21:16] LABS: ALBUMIN 4.1 g/dL (3.5-5.0); ANION GAP 14.7 MEQ/L (5-15); BILIRUBIN,TOTAL 0.5 mg/dL (0.2-1.3); Calcium 9.8 mg/dL (8.4-10.2); Creatinine 1 0.56 mg/dL (0.52-1.04); EST GLOMERULAR FILTRATION RATE 119.7 ML/MIN; Potassium 3.2 mmol/L (3.5-5.1); Total Protein 7.5 g/dL (6.3-8.2)
[2024-01-14 21:42] LABS: Lymphocytes 24 % (24-44); Monocyte 1 % (0.0-12.0); Neutrophils 75 % (1.56-6.13); Platelet Estimate NORMAL (NORMAL); Total Cells Counted 100
[2024-01-14] MEDS: DEXTROSE 10% 250 ML 250 ML IV SCH (21:55)
[2024-01-14] MEDS ORDERED: DEXTROSE 10% 250 ML 250 ML IV ONE (21:56)
[2024-01-14] MEDS ORDERED: TYLENOL 325 MG ONE (22:06)
[2024-01-14] MEDS ORDERED: BENADRYL 50 MG/ML ONE (22:06)
[2024-01-14] MEDS ORDERED: Sodium Chloride 0.9% 1000 ML 1,000 ML ONE (22:07)
[2024-01-14] MEDS ORDERED: Reglan 10 MG/2 ML ONE (22:07)
[2024-01-14] MEDS: TYLENOL 325 MG PO ONE (22:10)
[2024-01-14] MEDS: Sodium Chloride 0.9% 1000 ML 1,000 ML IV STA (22:17)
[2024-01-14] MEDS: Reglan 10 MG/2 ML IV ONE (22:19)
[2024-01-14] MEDS: BENADRYL 50 MG/ML IV ONE (22:22)
[2024-01-14 22:34] LABS: ADD URINE CULTURE? NO (NO); Appearance Clear (Clear); Bacteria None Seen /HPF (None Seen); Bilirubin Negative (Negative); Blood Negative (Negative); Epithelial Cells None Seen /HPF (None Seen); Glucose, Urine >=1000 mg/dL (Negative); Hyaline Casts NONE SEEN /LPF (0-2); Ketones Negative (Negative); Leukocyte Esterase Negative (Negative); Nitrite Negative (Negative); Ph 6.5 (4.6-8.0); Protein,Urine Dip Negative (Negative); RBC 0-2 /HPF (0-5); Specific Gravity <=1.005 (1.005-1.030); Urobilinogen 0.2 mg/dL (0.2); WBC 0-2 /HPF (0-5)
[2024-01-14] MEDS ORDERED: SUBLIMAZE 100 MCG/2 ML ONE (23:48)
[2024-01-14] MEDS: SUBLIMAZE 100 MCG/2 ML IV ONE (23:49)
[2024-01-15] MEDS ORDERED: [UNRECOGNIZED DRUG - OTHER] PO PRN (02:39)
[2024-01-15] MEDS ORDERED: Seroquel 100 MG PO PRN (02:39)
[2024-01-15] MEDS ORDERED: ACETAMINOPHEN PO PRN (02:39)
[2024-01-15] MEDS ORDERED: OXYCODONE HCL PO PRN (02:39)
--- NOTE | 2024-01-15 02:56 | PCM.HP ---
History of Present Illness - Chief Complaint Chief Complaint: Hypoglycemia, leukocytosis Date: 01/15/24 History of Present Illness: Ms. Bonilla is a 38 year-old female with DM2, bipolar disorder, and HLD who presents with presyncope and hypoglycemia. She admits to feeling lightheaded and sweaty today, and upon arrival to [place], her blood sugar was noted to be 40- 50s in the setting of a WBC count of 31K, K 3.2, and a lactic acid of 3.3. Imaging of her chest and belly were unremarkable. On my examination, she is on D10 drip feeling better denying any current fevers, chills, nausea, vomiting, diarrhea, syncope, presyncope, visual changes, orthopnea, PND, odynophagia, dysphagia, chest pain, shortness of breath, belly pain, dysuria, hematuria, melena, hematochezia, or neurological changes. All other systems were reviewed and were negative. - Review of Systems Constitutional: Other ( PER HPI) Medications & Allergies Home Medications: Home Medication List Atorvastatin Calcium 40 mg PO HS 10/22/22 [History Confirmed 01/15/24] Fenofibrate Nanocrystallized [Fenofibrate] 145 mg PO HS 10/22/22 [History Confirmed 01/15/24] Lamotrigine [Lamotrigine ER] 200 mg PO BID 10/22/22 [History Confirmed 01/15/24] Lisinopril 10 mg [Zestril 10 MG] 10 mg PO HS 10/22/22 [History Confirmed 01/15/24] PANTOPRAZOLE 40 mg Tablet [Protonix 40MG Tablet] 40 mg PO HS 10/22/22 [History Confirmed 01/15/24] Ropinirole HCl 2 mg PO HS 10/22/22 [History Confirmed 01/15/24] Tizanidine HCl 4 mg [Zanaflex 4 MG] 4 mg PO TID 10/22/22 [History Confirmed 01/15/24] Trazodone HCl 200 mg PO HS 10/22/22 [History Confirmed 01/15/24] Venlafaxine HCl [Venlafaxine HCl ER] 150 mg PO HS 10/22/22 [History Confirmed 01/15/24] Gabapentin 800 mg PO TID 08/13/23 [History Confirmed 01/15/24] Quetiapine Fumarate 100 mg [Seroquel 100 MG] 100 mg PO HS PRN PRN 10/08/23 [History Confirmed 01/15/24] Semaglutide [Ozempic] 1 mg SQ WEEKLY 10/24/23 [History Confirmed 01/15/24] Empagliflozin/Metformin HCl [Synjardy Xr 25-1,000 mg Tablet] 1 tab PO DAILY 01/14/24 [History Confirmed 01/15/24] Oxycodone HCl/Acetaminophen [Oxycodon-Acetaminophen 7.5-300] 1 tab PO BID PRN P RN 01/14/24 [History Confirmed 01/15/24] Allergies/Adverse Reactions: Allergies Allergy/AdvReac Type Severity Reaction Status Date / Time codeine Allergy Intermediate Nausea and Verified 01/15/24 02:18 Vomiting ketorolac [From Toradol] Allergy Intermediate Nausea and Verified 01/15/24 02:18 Vomiting morphine Allergy Intermediate Hives Verified 01/15/24 02:18 ondansetron [From Zofran] Allergy Intermediate Nausea and Verified 01/15/24 02:18 Vomiting piroxicam [From Feldene] Allergy Intermediate Hives Verified 01/15/24 02:18 - Past Medical History Past Medical History: Yes Neurological History: No Pertinent History ENT History: No Pertinent History Cardiac History: Arrhythmia, Coronary Artery Disease, High Cholesterol Respiratory History: No Pertinent History Endocrine Medical History: Diabetes Type II Musculoskelatal History: Degenerative Disk Disease GI Medical History: GERD, Gallbladder Disease, Hernia History: No Pertinent History Pyscho-Social History: Depression Reproductive Disorders: Menstrual Problems Comment: PVCs with bigeminy - Female History Are you now?: No - Past Surgical History Past Surgical History: Yes Neuro Surgical History: No Pertinent History Cardiac History: Other Respiratory Surgery: No Pertinent History GI Surgical History: Cholecystectomy, Hernia Repair Genitourinary Surgical Hx: No Pertinent History Musculskeletal Surgical Hx: Orthopedic Surgery Female Surgical History: Hysterectomy Other Surgical History: cardiac ablation. lumbar fusion Significant Family History: no pertinent family hx - Social History Smoking Status: Current every day smoker How long have you smoked: 25 Exposure to second hand smoke: Yes Alcohol: None Drug Use: none - Social Determinants of Health Will the patient participate in the screening: Yes Do you worry about a steady place to live?: No Do you have any problems with any of the following?: No known problems In the past 12 months,have you had to go without utilities?: No Have you or anyone in your house had to go without enough: No Transportation Issues: No Has anyone in your support network made you feel unsafe?: No Does the patient want assistance with any of the above?: No - Physical Exam Vital Signs: Vital Signs - 24 hr Temp Pulse Resp BP Pulse Ox 01/15/24 01:59 98.0 F 80 18 121/65 95 01/15/24 01:00 85 108/72 95 01/15/24 00:00 86 126/65 97 01/14/24 23:34 97 01/14/24 23:25 87 124/58 98 01/14/24 22:25 94 H 144/83 96 01/14/24 20:58 98 F 95 H 18 138/71 97 General Appearance: no apparent distress, alert Neurologic Exam: alert, oriented x 3, cooperative, normal mood/affect, nml cerebellar function, nml station & gait, sensation nml, No motor deficits Eye Exam: PERRL/EOMI, eyes nml inspection Ears, Nose, Throat Exam: normal ENT inspection, TMs normal, pharynx normal, moist mucous membranes Neck Exam: normal inspection, non-tender, supple, full range of motion Respiratory Exam: normal breath sounds, lungs clear, No respiratory distress Cardiovascular Exam: regular rate/rhythm, normal heart sounds, normal peripheral pulses Gastrointestinal/Abdomen Exam: soft, normal bowel sounds, No tenderness, No mass Back Exam: normal inspection, normal range of motion, No CVA tenderness, No vertebral tenderness Extremity Exam: normal inspection, normal range of motion, pelvis stable Skin Exam: normal color, warm, dry, No rash Lymphatic Exam: No adenopathy Results - Labs Lab/Micro Results: Lab Results-Last 24 Hours 01/14/24 01/14/24 01/14/24 Range/Units 20:55 21:00 21:00 WBC 31.3 H* (3.98-10.04) x10^3/uL RBC 5.32 H (3.93-5.22) x10^6/uL Hgb 14.3 (11.2-15.7) g/dL Hct 42.8 (34.1-44.9) % MCV 80.5 (79.4-94.8) fL MCH 26.9 (25.6-32.2) pg MCHC 33.4 (32.2-35.5) g/dL RDW 14.4 (11.7-14.4) % Plt Count 440 H (182-369) x10^3/uL MPV 10.2 (9.4-12.3) fL Segmented Neutrophils 75 H (1.56-6.13) % Lymphocytes (Manual) 24 (24-44) % Monocytes (Manual) 1 (0.0-12.0) % Platelet Estimate NORMAL (NORMAL) RBC Morphology NORMAL Smear Path Review Pending Sodium 137 (135-145) mmol/L Potassium 3.2 L (3.5-5.1) mmol/L Chloride 102 (98-107) mmol/L Carbon Dioxide 24 (22-30) mmol/L Anion Gap 14.7 (5-15) MEQ/L BUN 12 (7-17) mg/dL Creatinine 0.56 (0.52-1.04) mg/dL Estimated GFR 119.7 ML/MIN Glucose 45 L* (74-106) mg/dL POC Glucometer 228 H (74 to 106) mg/dL Lactic Acid (0.4-2.0) Calcium 9.8 (8.4-10.2) mg/dL Total Bilirubin 0.50 (0.2-1.3) mg/dL AST 22 (14-36) U/L ALT 22 (0-35) U/L Alkaline Phosphatase 67 (38-126) U/L Troponin I (0.000-0.033) ng/mL Serum Total Protein 7.5 (6.3-8.2) g/dL Albumin 4.1 (3.5-5.0) g/dL Lipase 54 (23-300) U/L Procalcitonin (0.030-0.080) ng/mL Serum HCG, Qual (NEGATIVE) Urine Color (Yellow) Urine Appearance (Clear) Urine pH (4.6-8.0) Ur Specific Webster (1.005-1.030) Urine Protein (Negative) Urine Glucose (UA) (Negative) mg/dL Urine Ketones (Negative) Urine Blood (Negative) Urine Nitrite (Negative) Urine Bilirubin (Negative) Urine Urobilinogen (0.2) mg/dL Ur Leukocyte Esterase (Negative) U Hyaline Cast (Auto) (0-2) /LPF Urine Microscopic RBC (0-5) /HPF Urine Microscopic WBC (0-5) /HPF Ur Epithelial Cells (None Seen) /HPF Urine Bacteria (None Seen) /HPF Urine Culture Reflexed (NO) 01/14/24 01/14/24 01/14/24 Range/Units 21:00 21:00 21:00 WBC (3.98-10.04) x10^3/uL RBC (3.93-5.22) x10^6/uL Hgb (11.2-15.7) g/dL Hct (34.1-44.9) % MCV (79.4-94.8) fL MCH (25.6-32.2) pg MCHC (32.2-35.5) g/dL RDW (11.7-14.4) % Plt Count (182-369) x10^3/uL MPV (9.4-12.3) fL Segmented Neutrophils (1.56-6.13) % Lymphocytes (Manual) (24-44) % Monocytes (Manual) (0.0-12.0) % Platelet Estimate (NORMAL) RBC Morphology Smear Path Review Sodium (135-145) mmol/L Potassium (3.5-5.1) mmol/L Chloride (98-107) mmol/L Carbon Dioxide (22-30) mmol/L Anion Gap (5-15) MEQ/L BUN (7-17) mg/dL Creatinine (0.52-1.04) mg/dL Estimated GFR ML/MIN Glucose (74-106) mg/dL POC Glucometer (74 to 106) mg/dL Lactic Acid (0.4-2.0) Calcium (8.4-10.2) mg/dL Total Bilirubin (0.2-1.3) mg/dL AST (14-36) U/L ALT (0-35) U/L Alkaline Phosphatase (38-126) U/L Troponin I < 0.012 (0.000-0.033) ng/mL Serum Total Protein (6.3-8.2) g/dL Albumin (3.5-5.0) g/dL Lipase (23-300) U/L Procalcitonin 0.035 (0.030-0.080) ng/mL Serum HCG, Qual NEGATIVE (NEGATIVE) Urine Color (Yellow) Urine Appearance (Clear) Urine pH (4.6-8.0) Ur Specific Webster (1.005-1.030) Urine Protein (Negative) Urine Glucose (UA) (Negative) mg/dL Urine Ketones (Negative) Urine Blood (Negative) Urine Nitrite (Negative) Urine Bilirubin (Negative) Urine Urobilinogen (0.2) mg/dL Ur Leukocyte Esterase (Negative) U Hyaline Cast (Auto) (0-2) /LPF Urine Microscopic RBC (0-5) /HPF Urine Microscopic WBC (0-5) /HPF Ur Epithelial Cells (None Seen) /HPF Urine Bacteria (None Seen) /HPF Urine Culture Reflexed (NO) 01/14/24 01/14/24 01/14/24 Range/Units 21:01 21:55 22:20 WBC (3.98-10.04) x10^3/uL RBC (3.93-5.22) x10^6/uL Hgb (11.2-15.7) g/dL Hct (34.1-44.9) % MCV (79.4-94.8) fL MCH (25.6-32.2) pg MCHC (32.2-35.5) g/dL RDW (11.7-14.4) % Plt Count (182-369) x10^3/uL MPV (9.4-12.3) fL Segmented Neutrophils (1.56-6.13) % Lymphocytes (Manual) (24-44) % Monocytes (Manual) (0.0-12.0) % Platelet Estimate (NORMAL) RBC Morphology Smear Path Review Sodium (135-145) mmol/L Potassium (3.5-5.1) mmol/L Chloride (98-107) mmol/L Carbon Dioxide (22-30) mmol/L Anion Gap (5-15) MEQ/L BUN (7-17) mg/dL Creatinine (0.52-1.04) mg/dL Estimated GFR ML/MIN Glucose (74-106) mg/dL POC Glucometer 52 L (74 to 106) mg/dL Lactic Acid 3.3 H (0.4-2.0) Calcium (8.4-10.2) mg/dL Total Bilirubin (0.2-1.3) mg/dL AST (14-36) U/L ALT (0-35) U/L Alkaline Phosphatase (38-126) U/L Troponin I (0.000-0.033) ng/mL Serum Total Protein (6.3-8.2) g/dL Albumin (3.5-5.0) g/dL Lipase (23-300) U/L Procalcitonin (0.030-0.080) ng/mL Serum HCG, Qual (NEGATIVE) Urine Color Yellow (Yellow) Urine Appearance Clear (Clear) Urine pH 6.5 (4.6-8.0) Ur Specific Webster <=1.005 (1.005-1.030) Urine Protein Negative (Negative) Urine Glucose (UA) >=1000 A (Negative) mg/dL Urine Ketones Negative (Negative) Urine Blood Negative (Negative) Urine Nitrite Negative (Negative) Urine Bilirubin Negative (Negative) Urine Urobilinogen 0.2 (0.2) mg/dL Ur Leukocyte Esterase Negative (Negative) U Hyaline Cast (Auto) NONE SEEN (0-2) /LPF Urine Microscopic RBC 0-2 (0-5) /HPF Urine Microscopic WBC 0-2 (0-5) /HPF Ur Epithelial Cells None Seen (None Seen) /HPF Urine Bacteria None Seen (None Seen) /HPF Urine Culture Reflexed NO (NO) 01/14/24 01/14/24 01/14/24 Range/Units 22:35 23:19 23:37 WBC (3.98-10.04) x10^3/uL RBC (3.93-5.22) x10^6/uL Hgb (11.2-15.7) g/dL Hct (34.1-44.9) % MCV (79.4-94.8) fL MCH (25.6-32.2) pg MCHC (32.2-35.5) g/dL RDW (11.7-14.4) % Plt Count (182-369) x10^3/uL MPV (9.4-12.3) fL Segmented Neutrophils (1.56-6.13) % Lymphocytes (Manual) (24-44) % Monocytes (Manual) (0.0-12.0) % Platelet Estimate (NORMAL) RBC Morphology Smear Path Review Sodium (135-145) mmol/L Potassium (3.5-5.1) mmol/L Chloride (98-107) mmol/L Carbon Dioxide (22-30) mmol/L Anion Gap (5-15) MEQ/L BUN (7-17) mg/dL Creatinine (0.52-1.04) mg/dL Estimated GFR ML/MIN Glucose (74-106) mg/dL POC Glucometer 187 H 78 (74 to 106) mg/dL Lactic Acid 1.5 (0.4-2.0) Calcium (8.4-10.2) mg/dL Total Bilirubin (0.2-1.3) mg/dL AST (14-36) U/L ALT (0-35) U/L Alkaline Phosphatase (38-126) U/L Troponin I (0.000-0.033) ng/mL Serum Total Protein (6.3-8.2) g/dL Albumin (3.5-5.0) g/dL Lipase (23-300) U/L Procalcitonin (0.030-0.080) ng/mL Serum HCG, Qual (NEGATIVE) Urine Color (Yellow) Urine Appearance (Clear) Urine pH (4.6-8.0) Ur Specific Webster (1.005-1.030) Urine Protein (Negative) Urine Glucose (UA) (Negative) mg/dL Urine Ketones (Negative) Urine Blood (Negative) Urine Nitrite (Negative) Urine Bilirubin (Negative) Urine Urobilinogen (0.2) mg/dL Ur Leukocyte Esterase (Negative) U Hyaline Cast (Auto) (0-2) /LPF Urine Microscopic RBC (0-5) /HPF Urine Microscopic WBC (0-5) /HPF Ur Epithelial Cells (None Seen) /HPF Urine Bacteria (None Seen) /HPF Urine Culture Reflexed (NO) 01/15/24 01/15/24 Range/Units 01:13 01:58 WBC (3.98-10.04) x10^3/uL RBC (3.93-5.22) x10^6/uL Hgb (11.2-15.7) g/dL Hct (34.1-44.9) % MCV (79.4-94.8) fL MCH (25.6-32.2) pg MCHC (32.2-35.5) g/dL RDW (11.7-14.4) % Plt Count (182-369) x10^3/uL MPV (9.4-12.3) fL Segmented Neutrophils (1.56-6.13) % Lymphocytes (Manual) (24-44) % Monocytes (Manual) (0.0-12.0) % Platelet Estimate (NORMAL) RBC Morphology Smear Path Review Sodium (135-145) mmol/L Potassium (3.5-5.1) mmol/L Chloride (98-107) mmol/L Carbon Dioxide (22-30) mmol/L Anion Gap (5-15) MEQ/L BUN (7-17) mg/dL Creatinine (0.52-1.04) mg/dL Estimated GFR ML/MIN Glucose (74-106) mg/dL POC Glucometer 124 H (74 to 106) mg/dL Lactic Acid (0.4-2.0) Calcium (8.4-10.2) mg/dL Total Bilirubin (0.2-1.3) mg/dL AST (14-36) U/L ALT (0-35) U/L Alkaline Phosphatase (38-126) U/L Troponin I < 0.012 (0.000-0.033) ng/mL Serum Total Protein (6.3-8.2) g/dL Albumin (3.5-5.0) g/dL Lipase (23-300) U/L Procalcitonin (0.030-0.080) ng/mL Serum HCG, Qual (NEGATIVE) Urine Color (Yellow) Urine Appearance (Clear) Urine pH (4.6-8.0) Ur Specific Webster (1.005-1.030) Urine Protein (Negative) Urine Glucose (UA) (Negative) mg/dL Urine Ketones (Negative) Urine Blood (Negative) Urine Nitrite (Negative) Urine Bilirubin (Negative) Urine Urobilinogen (0.2) mg/dL Ur Leukocyte Esterase (Negative) U Hyaline Cast (Auto) (0-2) /LPF Urine Microscopic RBC (0-5) /HPF Urine Microscopic WBC (0-5) /HPF Ur Epithelial Cells (None Seen) /HPF Urine Bacteria (None Seen) /HPF Urine Culture Reflexed (NO) - Radiology Impressions Radiology Exams & Impressions: Radiology Procedures Category Date Time Status ABDOMEN AND PELVIS W/0 CONTRAS [CT] Stat Exams 01/14/24 21:18 Taken CHEST WITHOUT CONTRAST [CT] Stat Exams 01/14/24 21:18 Taken - Other Procedures and Tests Respiratory Therapy 01/15/24 02:15 Smoking Cessation Education ONCE Assessment/Plan (1) Hypoglycemia Current Visit: Yes Status: Acute Assessment & Plan: DRIPS D10 ASSESSMENT 1. Dizziness 2. Acute Hypoglycemia 3. Leukocytosis 4. Hypokalemia 5. Elevated Lactate 6. Type II Diabetes Mellitus 7. Hyperlipidemia 8. Bipolar Disorder PLAN 1. Continue D10 2. Feels better 3. Hold Synjardy and Ozempic; will need appropriate regimen prior to discharge 4. Replete K 5. Repeat Lactate 6. CT chest, abdomen, and pelvis are negative 7. Continue pain medication and statin 8. Continue lamotrigine Lovenox Critical Care Time: 60 Minutes The entirety of this encounter was done via telemedicine with audio and visual. Consent was obtained for a telemedicine encounter. Jamey Platt MD Pulmonary and Critical Care Medicine Code(s): E16.2 - HYPOGLYCEMIA, UNSPECIFIED Telemedicine Encounter - Telemedicine Encounter Telemedicine Encounter: The entirety of this encounter was performed via Telemedicine"
[2024-01-15] MEDS ORDERED: Effexor XR 75 MG ONE (03:07)
[2024-01-15] MEDS ORDERED: Desyrel 150 MG ONE (03:08)
[2024-01-15] MEDS ORDERED: DESYREL 50 MG ONE (03:08)
[2024-01-15] MEDS ORDERED: REQUIP 2MG TAB ONE (03:08)
[2024-01-15] MEDS ORDERED: lamICTAL 100MG TABLET ONE (03:08)
[2024-01-15] MEDS ORDERED: Tricor 145 MG ONE (03:08)
[2024-01-15] MEDS ORDERED: Protonix 40MG Tablet ONE (03:09)
[2024-01-15] MEDS ORDERED: ZOCOR 20MG ONE (03:10)
[2024-01-15] MEDS ORDERED: Neurontin ONE (03:10)
[2024-01-15] MEDS: lamICTAL 100MG TABLET PO SCH (03:30)
[2024-01-15] MEDS: Zanaflex 4 MG PO SCH (03:30)
[2024-01-15] MEDS: Protonix 40MG Tablet PO SCH (03:30)
[2024-01-15] MEDS: Tricor 145 MG PO SCH (03:30)
[2024-01-15] MEDS: Desyrel 150 MG PO SCH (03:30)
[2024-01-15] MEDS: Effexor XR 75 MG PO SCH (03:30)
[2024-01-15] MEDS: REQUIP 2MG TAB PO SCH (03:30)
[2024-01-15] MEDS: DESYREL 50 MG PO SCH (03:30)
[2024-01-15] MEDS: ZOCOR 20MG PO SCH (03:30)
[2024-01-15] MEDS: Neurontin PO SCH (03:30)
[2024-01-15] MEDS ORDERED: DEXTROSE 10% 250 ML 250 ML IV ONE (03:36)
[2024-01-15 07:08] LABS: Absolute Neutrophil Ct (ANC) 6.43 x10^3/uL (1.56-6.13); BASOPHIL % 0.6 % (0.1-1.2); Basophil (Absolute #) 0.07 x10^3/uL (0.01-0.08); Eosinophil % 1.7 % (0.7-5.8); Eosinophil (Absolute #) 0.21 x10^3/uL (0.04-0.36); Hematocrit 39.6 % (34.1-44.9); Hemoglobin 12.7 g/dL (11.2-15.7); IMMATURE GRAN # 0.02 x10^3u/L (0.001-0.031); IMMATURE GRAN % 0.2 % (0.001-0.429); Lymphocyte (Absolute #) 4.46 x10^3/uL (1.18-3.74); Lymphocytes % 36.9 % (19.3-51.7); Mean Cell Volume 83.2 fL (79.4-94.8); Mean Corpuscular Hemoglobin 26.7 pg (25.6-32.2); Mean Corpuscular Hgb Concent. 32.1 g/dL (32.2-35.5); Mean Platelet Volume 9.9 fL (9.4-12.3); Monocytes % 7.4 % (4.7-12.5); Neutrophil % 53.2 % (34.0-71.1); Platelet Count 336 x10^3/uL (182-369); Red Blood Count 4.76 x10^6/uL (3.93-5.22); Red Cell Distribution Width 14.1 % (11.7-14.4); White Blood Count 12.1 x10^3/uL (3.98-10.04)
[2024-01-15 07:23] VITALS: O2SAT 96
[2024-01-15 07:24] LABS: ANION GAP 11.6 MEQ/L (5-15); BILIRUBIN,TOTAL 0.2 mg/dL (0.2-1.3); Calcium 8.9 mg/dL (8.4-10.2); Creatinine 1 0.52 mg/dL (0.52-1.04); EST GLOMERULAR FILTRATION RATE 121.9 ML/MIN; MAGNESIUM 1.8 mg/dL (1.6-2.3); Potassium 3.4 mmol/L (3.5-5.1); Total Protein 5.8 g/dL (6.3-8.2)
--- NOTE | 2024-01-15 08:09 | XRAY ---
Indication: Weakness. Hypoglycemia. Multiple contiguous axial images obtained through the chest without contrast. Comparison: September 18, 2023 Lungs inflated with minimal bilateral dependent atelectasis. No suspicious pulmonary mass/nodule, infiltrate, or effusion. Heart not enlarged. Aorta is normal in course and caliber. No pathologic mediastinal lymphadenopathy. Bony thorax intact. CT abdomen/pelvis reported separately. Impression: Minimal bilateral dependent atelectasis. Remaining CT chest without contrast exam is again negative.
--- NOTE | 2024-01-15 08:11 | XRAY ---
Indication: Weakness. Hypoglycemia. Multiple contiguous axial images obtained through the abdomen and pelvis without contrast. Comparison: September 02, 2023 CT chest reported separately. Stomach is distended with food/fluid. Noncontrasted stomach and bowel loops appear nonobstructed. There is now mild diffuse scattered colonic fecal debris throughout. Again normal appendix, cholecystectomy, and hysterectomy. No free fluid/air. Remaining liver, pancreas, spleen, adrenal glands, kidneys, ureters, bladder, and aorta are unremarkable for noncontrast exam. Osseous structures intact again with L5-S1 fusion. Impression: 1. New mild diffuse fecal stasis. 2. Remaining CT abdomen/pelvis without contrast exam continues to be negative.
[2024-01-15] MEDS: Klor Con PO SCH (08:20)
[2024-01-15] MEDS: ENOXAPARIN SODIUM SQ SCH (08:21)
[2024-01-15] MEDS: PERCOCET TABLET 5/325MG PO PRN (08:46)
[2024-01-15] MEDS ORDERED: lamICTAL 100MG TABLET PO SCH (10:00)
[2024-01-15] MEDS ORDERED: LAMOTRIGINE 200 MG PO SCH (10:00)
[2024-01-15] MEDS ORDERED: NON-FORMULARY ITEM (Gabapentin [Gabapentin] 800 MG Tablet) PO SCH (10:00)
[2024-01-15 11:36] VITALS: BP 118/71; PULSE 77; RESP 18; TEMP 97.3
--- NOTE | 2024-01-15 14:07 | PCM.DS ---
Discharge Summary Date of Admission: 01/15/24 01:47 Date of Discharge: 01/15/24 Admitting Physician: TERESSA LINDER MD Primary Care Provider: DOLORES MEJIA Allergies Allergies codeine Allergy (Intermediate, Verified 01/15/24 02:18) Nausea and Vomiting ketorolac [From Toradol] Allergy (Intermediate, Verified 01/15/24 02:18) Nausea and Vomiting morphine Allergy (Intermediate, Verified 01/15/24 02:18) [facility] ondansetron [From Zofran] Allergy (Intermediate, Verified 01/15/24 02:18) Nausea and Vomiting piroxicam [From Feldene] Allergy (Intermediate, Verified 01/15/24 02:18) [facility] Summary - Hospital Course Hospital Course: HPI: Ms. Bonilla is a 38 year-old female with DM2, bipolar disorder, and HLD who presents with presyncope and hypoglycemia. She admits to feeling lightheaded and sweaty today, and upon arrival to [place], her blood sugar was noted to be 40- 50s in the setting of a WBC count of 31K, K 3.2, and a lactic acid of 3.3. Imaging of her chest and belly were unremarkable. On my examination, she is on D 10 drip feeling better denying any current fevers, chills, nausea, vomiting, diarrhea, syncope, presyncope, visual changes, orthopnea, PND, odynophagia, dysphagia, chest pain, shortness of breath, belly pain, dysuria, hematuria, melena, hematochezia, or neurological changes. All other systems were reviewed and were negative. 01/14: No overnight events noted. No further episodes of hypoglycemia with discontinuation of D10. Labs stable, WBC downtrending - no source of infection. CT c/a/p with no acute findings. Lactic now WNL. No localizing symptoms. Feeling much improved. Advised discharge with holding new medication synjardy until follow up with endocrinology and more frequent blood glucose checks. Patient agreeable to plan and stable for discharge. Discharge Note New Diagnosis: Hypoglycemia New Medications: none Follow Up: PCP/endocrinology Latest Assessment & Plan 1. Dizziness -secondary to hypoglycemia - resolved 2. Acute Hypoglycemia -resolved, most likely secondary to new med synjardy as this was a recent medication change - hold until follow up with endo 3. Leukocytosis -most likely reactive, downtrending near normal limits 4. Hypokalemia -resolved 5. Elevated Lactate -resolved 6. Type II Diabetes Mellitus -Hold synjardy -follow up with endo - monitor glucose levels closely - keep journal until follow up 7. Hyperlipidemia 8. Bipolar Disorder I spent 35 minutes [id number] with the patient on the day of discharge performing discharge exam, discussing hospital stay and discharge instructions with patient and caregivers, preparation of discharge records, prescriptions & referral forms and addressing any questions/concerns the patient had as documented above. - Vitals & Intake/Output Vital Signs: Vital Signs Temperature 97.3 F 01/15/24 11:35 Pulse Rate 77 01/15/24 11:35 Respiratory Rate 18 01/15/24 11:35 Blood Pressure 118/71 01/15/24 11:35 O2 Sat by Pulse Oximetry 96 01/15/24 11:35 Intake & Output: Intake & Output 01/13/24 01/14/24 01/15/24 01/16/24 11:59 11:59 11:59 11:59 Intake Total 240 240 Balance 240 240 Weight 110.3 kg - Lab Result Diagrams: 01/15/24 07:00 01/15/24 12:10 Lab Results-Last 24 Hrs: Lab Results-Last 24 Hours 01/14/24 01/14/24 01/14/24 Range/Units 20:55 21:00 21:00 WBC 31.3 H* (3.98-10.04) x10^3/uL RBC 5.32 H (3.93-5.22) x10^6/uL Hgb 14.3 (11.2-15.7) g/dL Hct 42.8 (34.1-44.9) % MCV 80.5 (79.4-94.8) fL MCH 26.9 (25.6-32.2) pg MCHC 33.4 (32.2-35.5) g/dL RDW 14.4 (11.7-14.4) % Plt Count 440 H (182-369) x10^3/uL MPV 10.2 (9.4-12.3) fL Gran % (34.0-71.1) % Immature Gran % (Auto) (0.001-0.429) % Nucleat RBC Rel Count (0.00-0.2) % Eos # (Auto) (0.04-0.36) x10^3/uL Immature Gran # (Auto) (0.001-0.031) x10^3u/L Absolute Lymphs (auto) (1.18-3.74) x10^3/uL Absolute Monos (auto) (0.24-0.86) x10^3/uL Absolute Nucleated RBC (0.00-0.012) x10^3u/L Lymphocytes % (19.3-51.7) % Monocytes % (4.7-12.5) % Eosinophils % (0.7-5.8) % Basophils % (0.1-1.2) % Absolute Granulocytes (1.56-6.13) x10^3/uL Segmented Neutrophils 75 H (1.56-6.13) % Lymphocytes (Manual) 24 (24-44) % Monocytes (Manual) 1 (0.0-12.0) % Basophils # (0.01-0.08) x10^3/uL Platelet Estimate NORMAL (NORMAL) RBC Morphology NORMAL Smear Path Review Pending Sodium 137 (135-145) mmol/L Potassium 3.2 L (3.5-5.1) mmol/L Chloride 102 (98-107) mmol/L Carbon Dioxide 24 (22-30) mmol/L Anion Gap 14.7 (5-15) MEQ/L BUN 12 (7-17) mg/dL Creatinine 0.56 (0.52-1.04) mg/dL Estimated GFR 119.7 ML/MIN Glucose 45 L* (74-106) mg/dL POC Glucometer 228 H (74 to 106) mg/dL Lactic Acid (0.4-2.0) Calcium 9.8 (8.4-10.2) mg/dL Magnesium (1.6-2.3) mg/dL Total Bilirubin 0.50 (0.2-1.3) mg/dL AST 22 (14-36) U/L ALT 22 (0-35) U/L Alkaline Phosphatase 67 (38-126) U/L Troponin I (0.000-0.033) ng/mL Serum Total Protein 7.5 (6.3-8.2) g/dL Albumin 4.1 (3.5-5.0) g/dL Lipase 54 (23-300) U/L Procalcitonin (0.030-0.080) ng/mL Serum HCG, Qual (NEGATIVE) Urine Color (Yellow) Urine Appearance (Clear) Urine pH (4.6-8.0) Ur Specific [place] (1.005-1.030) Urine Protein (Negative) Urine Glucose (UA) (Negative) mg/dL Urine Ketones (Negative) Urine Blood (Negative) Urine Nitrite (Negative) Urine Bilirubin (Negative) Urine Urobilinogen (0.2) mg/dL Ur Leukocyte Esterase (Negative) U Hyaline Cast (Auto) (0-2) /LPF Urine Microscopic RBC (0-5) /HPF Urine Microscopic WBC (0-5) /HPF Ur Epithelial Cells (None Seen) /HPF Urine Bacteria (None Seen) /HPF Urine Culture Reflexed (NO) 01/14/24 01/14/24 01/14/24 Range/Units 21:00 21:00 21:00 WBC (3.98-10.04) x10^3/uL RBC (3.93-5.22) x10^6/uL Hgb (11.2-15.7) g/dL Hct (34.1-44.9) % MCV (79.4-94.8) fL MCH (25.6-32.2) pg MCHC (32.2-35.5) g/dL RDW (11.7-14.4) % Plt Count (182-369) x10^3/uL MPV (9.4-12.3) fL Gran % (34.0-71.1) % Immature Gran % (Auto) (0.001-0.429) % Nucleat RBC Rel Count (0.00-0.2) % Eos # (Auto) (0.04-0.36) x10^3/uL Immature Gran # (Auto) (0.001-0.031) x10^3u/L Absolute Lymphs (auto) (1.18-3.74) x10^3/uL Absolute Monos (auto) (0.24-0.86) x10^3/uL Absolute Nucleated RBC (0.00-0.012) x10^3u/L Lymphocytes % (19.3-51.7) % Monocytes % (4.7-12.5) % Eosinophils % (0.7-5.8) % Basophils % (0.1-1.2) % Absolute Granulocytes (1.56-6.13) x10^3/uL Segmented Neutrophils (1.56-6.13) % Lymphocytes (Manual) (24-44) % Monocytes (Manual) (0.0-12.0) % Basophils # (0.01-0.08) x10^3/uL Platelet Estimate (NORMAL) RBC Morphology Smear Path Review Sodium (135-145) mmol/L Potassium (3.5-5.1) mmol/L Chloride (98-107) mmol/L Carbon Dioxide (22-30) mmol/L Anion Gap (5-15) MEQ/L BUN (7-17) mg/dL Creatinine (0.52-1.04) mg/dL Estimated GFR ML/MIN Glucose (74-106) mg/dL POC Glucometer (74 to 106) mg/dL Lactic Acid (0.4-2.0) Calcium (8.4-10.2) mg/dL Magnesium (1.6-2.3) mg/dL Total Bilirubin (0.2-1.3) mg/dL AST (14-36) U/L ALT (0-35) U/L Alkaline Phosphatase (38-126) U/L Troponin I < 0.012 (0.000-0.033) ng/mL Serum Total Protein (6.3-8.2) g/dL Albumin (3.5-5.0) g/dL Lipase (23-300) U/L Procalcitonin 0.035 (0.030-0.080) ng/mL Serum HCG, Qual NEGATIVE (NEGATIVE) Urine Color (Yellow) Urine Appearance (Clear) Urine pH (4.6-8.0) Ur Specific [place] (1.005-1.030) Urine Protein (Negative) Urine Glucose (UA) (Negative) mg/dL Urine Ketones (Negative) Urine Blood (Negative) Urine Nitrite (Negative) Urine Bilirubin (Negative) Urine Urobilinogen (0.2) mg/dL Ur Leukocyte Esterase (Negative) U Hyaline Cast (Auto) (0-2) /LPF Urine Microscopic RBC (0-5) /HPF Urine Microscopic WBC (0-5) /HPF Ur Epithelial Cells (None Seen) /HPF Urine Bacteria (None Seen) /HPF Urine Culture Reflexed (NO) 01/14/24 01/14/24 01/14/24 Range/Units 21:01 21:55 22:20 WBC (3.98-10.04) x10^3/uL RBC (3.93-5.22) x10^6/uL Hgb (11.2-15.7) g/dL Hct (34.1-44.9) % MCV (79.4-94.8) fL MCH (25.6-32.2) pg MCHC (32.2-35.5) g/dL RDW (11.7-14.4) % Plt Count (182-369) x10^3/uL MPV (9.4-12.3) fL Gran % (34.0-71.1) % Immature Gran % (Auto) (0.001-0.429) % Nucleat RBC Rel Count (0.00-0.2) % Eos # (Auto) (0.04-0.36) x10^3/uL Immature Gran # (Auto) (0.001-0.031) x10^3u/L Absolute Lymphs (auto) (1.18-3.74) x10^3/uL Absolute Monos (auto) (0.24-0.86) x10^3/uL Absolute Nucleated RBC (0.00-0.012) x10^3u/L Lymphocytes % (19.3-51.7) % Monocytes % (4.7-12.5) % Eosinophils % (0.7-5.8) % Basophils % (0.1-1.2) % Absolute Granulocytes (1.56-6.13) x10^3/uL Segmented Neutrophils (1.56-6.13) % Lymphocytes (Manual) (24-44) % Monocytes (Manual) (0.0-12.0) % Basophils # (0.01-0.08) x10^3/uL Platelet Estimate (NORMAL) RBC Morphology Smear Path Review Sodium (135-145) mmol/L Potassium (3.5-5.1) mmol/L Chloride (98-107) mmol/L Carbon Dioxide (22-30) mmol/L Anion Gap (5-15) MEQ/L BUN (7-17) mg/dL Creatinine (0.52-1.04) mg/dL Estimated GFR ML/MIN Glucose (74-106) mg/dL POC Glucometer 52 L (74 to 106) mg/dL Lactic Acid 3.3 H (0.4-2.0) Calcium (8.4-10.2) mg/dL Magnesium (1.6-2.3) mg/dL Total Bilirubin (0.2-1.3) mg/dL AST (14-36) U/L ALT (0-35) U/L Alkaline Phosphatase (38-126) U/L Troponin I (0.000-0.033) ng/mL Serum Total Protein (6.3-8.2) g/dL Albumin (3.5-5.0) g/dL Lipase (23-300) U/L Procalcitonin (0.030-0.080) ng/mL Serum HCG, Qual (NEGATIVE) Urine Color Yellow (Yellow) Urine Appearance Clear (Clear) Urine pH 6.5 (4.6-8.0) Ur Specific [place] <=1.005 (1.005-1.030) Urine Protein Negative (Negative) Urine Glucose (UA) >=1000 A (Negative) mg/dL Urine Ketones Negative (Negative) Urine Blood Negative (Negative) Urine Nitrite Negative (Negative) Urine Bilirubin Negative (Negative) Urine Urobilinogen 0.2 (0.2) mg/dL Ur Leukocyte Esterase Negative (Negative) U Hyaline Cast (Auto) NONE SEEN (0-2) /LPF Urine Microscopic RBC 0-2 (0-5) /HPF Urine Microscopic WBC 0-2 (0-5) /HPF Ur Epithelial Cells None Seen (None Seen) /HPF Urine Bacteria None Seen (None Seen) /HPF Urine Culture Reflexed NO (NO) 01/14/24 01/14/24 01/14/24 Range/Units 22:35 23:19 23:37 WBC (3.98-10.04) x10^3/uL RBC (3.93-5.22) x10^6/uL Hgb (11.2-15.7) g/dL Hct (34.1-44.9) % MCV (79.4-94.8) fL MCH (25.6-32.2) pg MCHC (32.2-35.5) g/dL RDW (11.7-14.4) % Plt Count (182-369) x10^3/uL MPV (9.4-12.3) fL Gran % (34.0-71.1) % Immature Gran % (Auto) (0.001-0.429) % Nucleat RBC Rel Count (0.00-0.2) % Eos # (Auto) (0.04-0.36) x10^3/uL Immature Gran # (Auto) (0.001-0.031) x10^3u/L Absolute Lymphs (auto) (1.18-3.74) x10^3/uL Absolute Monos (auto) (0.24-0.86) x10^3/uL Absolute Nucleated RBC (0.00-0.012) x10^3u/L Lymphocytes % (19.3-51.7) % Monocytes % (4.7-12.5) % Eosinophils % (0.7-5.8) % Basophils % (0.1-1.2) % Absolute Granulocytes (1.56-6.13) x10^3/uL Segmented Neutrophils (1.56-6.13) % Lymphocytes (Manual) (24-44) % Monocytes (Manual) (0.0-12.0) % Basophils # (0.01-0.08) x10^3/uL Platelet Estimate (NORMAL) RBC Morphology Smear Path Review Sodium (135-145) mmol/L Potassium (3.5-5.1) mmol/L Chloride (98-107) mmol/L Carbon Dioxide (22-30) mmol/L Anion Gap (5-15) MEQ/L BUN (7-17) mg/dL Creatinine (0.52-1.04) mg/dL Estimated GFR ML/MIN Glucose (74-106) mg/dL POC Glucometer 187 H 78 (74 to 106) mg/dL Lactic Acid 1.5 (0.4-2.0) Calcium (8.4-10.2) mg/dL Magnesium (1.6-2.3) mg/dL Total Bilirubin (0.2-1.3) mg/dL AST (14-36) U/L ALT (0-35) U/L Alkaline Phosphatase (38-126) U/L Troponin I (0.000-0.033) ng/mL Serum Total Protein (6.3-8.2) g/dL Albumin (3.5-5.0) g/dL Lipase (23-300) U/L Procalcitonin (0.030-0.080) ng/mL Serum HCG, Qual (NEGATIVE) Urine Color (Yellow) Urine Appearance (Clear) Urine pH (4.6-8.0) Ur Specific [place] (1.005-1.030) Urine Protein (Negative) Urine Glucose (UA) (Negative) mg/dL Urine Ketones (Negative) Urine Blood (Negative) Urine Nitrite (Negative) Urine Bilirubin (Negative) Urine Urobilinogen (0.2) mg/dL Ur Leukocyte Esterase (Negative) U Hyaline Cast (Auto) (0-2) /LPF Urine Microscopic RBC (0-5) /HPF Urine Microscopic WBC (0-5) /HPF Ur Epithelial Cells (None Seen) /HPF Urine Bacteria (None Seen) /HPF Urine Culture Reflexed (NO) 01/15/24 01/15/24 01/15/24 Range/Units 01:13 01:58 05:48 WBC (3.98-10.04) x10^3/uL RBC (3.93-5.22) x10^6/uL Hgb (11.2-15.7) g/dL Hct (34.1-44.9) % MCV (79.4-94.8) fL MCH (25.6-32.2) pg MCHC (32.2-35.5) g/dL RDW (11.7-14.4) % Plt Count (182-369) x10^3/uL MPV (9.4-12.3) fL Gran % (34.0-71.1) % Immature Gran % (Auto) (0.001-0.429) % Nucleat RBC Rel Count (0.00-0.2) % Eos # (Auto) (0.04-0.36) x10^3/uL Immature Gran # (Auto) (0.001-0.031) x10^3u/L Absolute Lymphs (auto) (1.18-3.74) x10^3/uL Absolute Monos (auto) (0.24-0.86) x10^3/uL Absolute Nucleated RBC (0.00-0.012) x10^3u/L Lymphocytes % (19.3-51.7) % Monocytes % (4.7-12.5) % Eosinophils % (0.7-5.8) % Basophils % (0.1-1.2) % Absolute Granulocytes (1.56-6.13) x10^3/uL Segmented Neutrophils (1.56-6.13) % Lymphocytes (Manual) (24-44) % Monocytes (Manual) (0.0-12.0) % Basophils # (0.01-0.08) x10^3/uL Platelet Estimate (NORMAL) RBC Morphology Smear Path Review Sodium (135-145) mmol/L Potassium (3.5-5.1) mmol/L Chloride (98-107) mmol/L Carbon Dioxide (22-30) mmol/L Anion Gap (5-15) MEQ/L BUN (7-17) mg/dL Creatinine (0.52-1.04) mg/dL Estimated GFR ML/MIN Glucose (74-106) mg/dL POC Glucometer 124 H 186 H (74 to 106) mg/dL Lactic Acid (0.4-2.0) Calcium (8.4-10.2) mg/dL Magnesium (1.6-2.3) mg/dL Total Bilirubin (0.2-1.3) mg/dL AST (14-36) U/L ALT (0-35) U/L Alkaline Phosphatase (38-126) U/L Troponin I < 0.012 (0.000-0.033) ng/mL Serum Total Protein (6.3-8.2) g/dL Albumin (3.5-5.0) g/dL Lipase (23-300) U/L Procalcitonin (0.030-0.080) ng/mL Serum HCG, Qual (NEGATIVE) Urine Color (Yellow) Urine Appearance (Clear) Urine pH (4.6-8.0) Ur Specific [place] (1.005-1.030) Urine Protein (Negative) Urine Glucose (UA) (Negative) mg/dL Urine Ketones (Negative) Urine Blood (Negative) Urine Nitrite (Negative) Urine Bilirubin (Negative) Urine Urobilinogen (0.2) mg/dL Ur Leukocyte Esterase (Negative) U Hyaline Cast (Auto) (0-2) /LPF Urine Microscopic RBC (0-5) /HPF Urine Microscopic WBC (0-5) /HPF Ur Epithelial Cells (None Seen) /HPF Urine Bacteria (None Seen) /HPF Urine Culture Reflexed (NO) 01/15/24 01/15/24 01/15/24 Range/Units 07:00 07:00 07:00 WBC 12.1 H (3.98-10.04) x10^3/uL RBC 4.76 (3.93-5.22) x10^6/uL Hgb 12.7 (11.2-15.7) g/dL Hct 39.6 (34.1-44.9) % MCV 83.2 (79.4-94.8) fL MCH 26.7 (25.6-32.2) pg MCHC 32.1 L (32.2-35.5) g/dL RDW 14.1 (11.7-14.4) % Plt Count 336 (182-369) x10^3/uL MPV 9.9 (9.4-12.3) fL Gran % 53.2 (34.0-71.1) % Immature Gran % (Auto) 0.2 (0.001-0.429) % Nucleat RBC Rel Count 0.0 (0.00-0.2) % Eos # (Auto) 0.21 (0.04-0.36) x10^3/uL Immature Gran # (Auto) 0.02 (0.001-0.031) x10^3u/L Absolute Lymphs (auto) 4.46 H (1.18-3.74) x10^3/uL Absolute Monos (auto) 0.90 H (0.24-0.86) x10^3/uL Absolute Nucleated RBC 0.00 (0.00-0.012) x10^3u/L Lymphocytes % 36.9 (19.3-51.7) % Monocytes % 7.4 (4.7-12.5) % Eosinophils % 1.7 (0.7-5.8) % Basophils % 0.6 (0.1-1.2) % Absolute Granulocytes 6.43 H (1.56-6.13) x10^3/uL Segmented Neutrophils (1.56-6.13) % Lymphocytes (Manual) (24-44) % Monocytes (Manual) (0.0-12.0) % Basophils # 0.07 (0.01-0.08) x10^3/uL Platelet Estimate (NORMAL) RBC Morphology Smear Path Review Sodium 139 (135-145) mmol/L Potassium 3.4 L (3.5-5.1) mmol/L Chloride 108 H (98-107) mmol/L Carbon Dioxide 23 (22-30) mmol/L Anion Gap 11.6 (5-15) MEQ/L BUN 10 (7-17) mg/dL Creatinine 0.52 (0.52-1.04) mg/dL Estimated GFR 121.9 ML/MIN Glucose 223 H (74-106) mg/dL POC Glucometer (74 to 106) mg/dL Lactic Acid (0.4-2.0) Calcium 8.9 (8.4-10.2) mg/dL Magnesium 1.8 (1.6-2.3) mg/dL Total Bilirubin 0.20 (0.2-1.3) mg/dL AST 17 (14-36) U/L ALT 16 (0-35) U/L Alkaline Phosphatase 56 (38-126) U/L Troponin I < 0.012 (0.000-0.033) ng/mL Serum Total Protein 5.8 L (6.3-8.2) g/dL Albumin 3.0 L (3.5-5.0) g/dL Lipase (23-300) U/L Procalcitonin (0.030-0.080) ng/mL Serum HCG, Qual (NEGATIVE) Urine Color (Yellow) Urine Appearance (Clear) Urine pH (4.6-8.0) Ur Specific [place] (1.005-1.030) Urine Protein (Negative) Urine Glucose (UA) (Negative) mg/dL Urine Ketones (Negative) Urine Blood (Negative) Urine Nitrite (Negative) Urine Bilirubin (Negative) Urine Urobilinogen (0.2) mg/dL Ur Leukocyte Esterase (Negative) U Hyaline Cast (Auto) (0-2) /LPF Urine Microscopic RBC (0-5) /HPF Urine Microscopic WBC (0-5) /HPF Ur Epithelial Cells (None Seen) /HPF Urine Bacteria (None Seen) /HPF Urine Culture Reflexed (NO) 01/15/24 01/15/24 01/15/24 Range/Units 07:10 11:26 12:10 WBC (3.98-10.04) x10^3/uL RBC (3.93-5.22) x10^6/uL Hgb (11.2-15.7) g/dL Hct (34.1-44.9) % MCV (79.4-94.8) fL MCH (25.6-32.2) pg MCHC (32.2-35.5) g/dL RDW (11.7-14.4) % Plt Count (182-369) x10^3/uL MPV (9.4-12.3) fL Gran % (34.0-71.1) % Immature Gran % (Auto) (0.001-0.429) % Nucleat RBC Rel Count (0.00-0.2) % Eos # (Auto) (0.04-0.36) x10^3/uL Immature Gran # (Auto) (0.001-0.031) x10^3u/L Absolute Lymphs (auto) (1.18-3.74) x10^3/uL Absolute Monos (auto) (0.24-0.86) x10^3/uL Absolute Nucleated RBC (0.00-0.012) x10^3u/L Lymphocytes % (19.3-51.7) % Monocytes % (4.7-12.5) % Eosinophils % (0.7-5.8) % Basophils % (0.1-1.2) % Absolute Granulocytes (1.56-6.13) x10^3/uL Segmented Neutrophils (1.56-6.13) % Lymphocytes (Manual) (24-44) % Monocytes (Manual) (0.0-12.0) % Basophils # (0.01-0.08) x10^3/uL Platelet Estimate (NORMAL) RBC Morphology Smear Path Review Sodium (135-145) mmol/L Potassium 3.5 (3.5-5.1) mmol/L Chloride (98-107) mmol/L Carbon Dioxide (22-30) mmol/L Anion Gap (5-15) MEQ/L BUN (7-17) mg/dL Creatinine (0.52-1.04) mg/dL Estimated GFR ML/MIN Glucose (74-106) mg/dL POC Glucometer 208 H 246 H (74 to 106) mg/dL Lactic Acid (0.4-2.0) Calcium (8.4-10.2) mg/dL Magnesium (1.6-2.3) mg/dL Total Bilirubin (0.2-1.3) mg/dL AST (14-36) U/L ALT (0-35) U/L Alkaline Phosphatase (38-126) U/L Troponin I (0.000-0.033) ng/mL Serum Total Protein (6.3-8.2) g/dL Albumin (3.5-5.0) g/dL Lipase (23-300) U/L Procalcitonin (0.030-0.080) ng/mL Serum HCG, Qual (NEGATIVE) Urine Color (Yellow) Urine Appearance (Clear) Urine pH (4.6-8.0) Ur Specific [place] (1.005-1.030) Urine Protein (Negative) Urine Glucose (UA) (Negative) mg/dL Urine Ketones (Negative) Urine Blood (Negative) Urine Nitrite (Negative) Urine Bilirubin (Negative) Urine Urobilinogen (0.2) mg/dL Ur Leukocyte Esterase (Negative) U Hyaline Cast (Auto) (0-2) /LPF Urine Microscopic RBC (0-5) /HPF Urine Microscopic WBC (0-5) /HPF Ur Epithelial Cells (None Seen) /HPF Urine Bacteria (None Seen) /HPF Urine Culture Reflexed (NO) Micro Results-Entire Visit: Accuchecks Date 01/15/24 Date 01/15/24 - Radiology Exams Ordered Rad Exams-Entire Visit: Radiology Procedures Category Date Time Status ABDOMEN AND PELVIS W/0 CONTRAS [CT] Stat Exams 01/14/24 21:18 Completed CHEST WITHOUT CONTRAST [CT] Stat Exams 01/14/24 21:18 Completed - Procedures and Test Procedures and Tests throughout Hospitalization: Therapy Orders & Screens 01/15/24 02:15 Smoking Cessation Education ONCE Comment: Diagnosis: Hypoglycemia, leukocytosis Smoking Status: Current every day smoker How long have you smoked: 25 Do you dip or chew tobacco: No Discharge Exam General Appearance: no apparent distress Neurologic Exam: alert, oriented x 3, cooperative Eye Exam: PERRL Ears, Nose, Throat Exam: normal ENT inspection Neck Exam: normal inspection Respiratory Exam: normal breath sounds, lungs clear Cardiovascular Exam: regular rate/rhythm, normal heart sounds Gastrointestinal/Abdomen Exam: soft, normal bowel sounds Pelvic Exam: deferred Rectal Exam: deferred Back Exam: normal inspection Extremity Exam: normal inspection Skin Exam: normal color Final Diagnosis/Problem List - Final Discharge Diagnosis/Problem (1) Hypoglycemia Current Visit: Yes Status: Acute Code(s): E16.2 - HYPOGLYCEMIA, UNSPECIFIED (2) Hypokalemia Current Visit: Yes Status: Acute Code(s): E87.6 - HYPOKALEMIA (3) Dizziness Current Visit: Yes Status: Acute Code(s): R42 - DIZZINESS AND GIDDINESS (4) Elevated lactic acid level Current Visit: Yes Status: Acute Code(s): R79.89 - OTHER SPECIFIED ABNORMAL FINDINGS OF BLOOD CHEMISTRY (5) Type 2 diabetes mellitus Current Visit: Yes Status: Acute (6) HLD (hyperlipidemia) Current Visit: Yes Status: Acute Code(s): E78.5 - HYPERLIPIDEMIA, UNSPECIFIED (7) Bipolar disease, chronic Current Visit: Yes Status: Acute Code(s): F31.9 - BIPOLAR DISORDER, UNSPECIFIED (8) Leukocytosis Current Visit: Yes Status: Acute Code(s): D72.829 - ELEVATED WHITE BLOOD CELL COUNT, UNSPECIFIED - Discharge Disposition: Home, Self-Care Condition: Stable Prescriptions: Continue Fenofibrate Nanocrystallized [Fenofibrate] 145 mg PO HS Atorvastatin Calcium 40 mg PO HS PANTOPRAZOLE 40 mg Tablet [Protonix 40MG Tablet] 40 mg PO HS Lisinopril 10 mg [Zestril 10 MG] 10 mg PO HS Venlafaxine HCl [Venlafaxine HCl ER] 150 mg PO HS Trazodone HCl 200 mg PO HS Ropinirole HCl 2 mg PO HS Lamotrigine [Lamotrigine ER] 200 mg PO BID Tizanidine HCl 4 mg [Zanaflex 4 MG] 4 mg PO TID Gabapentin 800 mg PO TID Quetiapine Fumarate 100 mg [Seroquel 100 MG] 100 mg PO HS PRN PRN PRN Reason: Insomnia Semaglutide [Ozempic] 1 mg SQ WEEKLY Oxycodone HCl/Acetaminophen [Oxycodon-Acetaminophen 7.5-300] 1 tab PO BID PRN PRN PRN Reason: Pain Discontinued Empagliflozin/Metformin HCl [Synjardy Xr 25-1,000 mg Tablet] 1 tab PO DAILY Additional Instructions: Hold synjardy until follow up with endocrinology - call office Wednesday Monitor glucose levels closely Keep blood glucose level logs to take with you to appt Follow up with: DOLORES MEJIA [Primary Care Provider] -
[2024-01-15] MEDS ORDERED: NON-FORMULARY ITEM (Trazodone Hcl [Trazodone Hcl] 100 MG Tablet) PO SCH (22:00)
[2024-01-15] MEDS ORDERED: LIPITOR 40MG PO SCH (22:00)
[2024-01-15] MEDS ORDERED: NON-FORMULARY ITEM (Venlafaxine Hcl [Venlafaxine Hcl Er] 150 MG Tab.Er.24) PO SCH (22:00)
[2024-01-16] MEDS ORDERED: Effexor XR 75 MG PO SCH ×2 (10:00)
== END 2024-01-15 16:47 | disposition home or self-care (01) ==
LOC: ED 20:25 → MED SURG 01-15 01:47
PROVIDERS: ADMIT Internal Medicine Critical Care Medicine; ATTEND Internal Medicine Critical Care Medicine
DX: E11.649 Type 2 diabetes mellitus with hypoglycemia without coma (principal); E87.6 Hypokalemia; R42 Dizziness and giddiness; R79.89 Other specified abnormal findings of blood chemistry; E78.5 Hyperlipidemia, unspecified; F31.9 Bipolar disorder, unspecified; D72.829 Elevated white blood cell count, unspecified; I25.10 Atherosclerotic heart disease of native coronary artery without angina pectoris; F17.200 Nicotine dependence, unspecified, uncomplicated; Z79.899 Other long term (current) drug therapy
CPT/HCPCS: 36000; 36415; 71250; 74176; 80053; 81001; 82947; 83605; 83690; 83735; 84132; 84145; 84484; 84703; 85025; 87040; 93005; 93268; 96360; 96374; 96375; 99285; 99291; G0378; J1200; J1650; J3010; Q3014; A9270-GY

== ENCOUNTER 2024-01-26 06:51 | Day surgery (SDC) | payer OTHER ==
[2024-01-26] MEDS ORDERED: BUPIVACAINE 0.5% VIAL IJ ONE (06:52)
[2024-01-26] MEDS ORDERED: Depo-Medrol 40 MG/ML IM ONE (06:52)
[2024-01-26] MEDS ORDERED: LIDOCAINE HCL 1% 50 MG/5 ML VL PF IJ ONE (06:52)
[2024-01-26] MEDS ORDERED: DIPRIVAN 200 MG/20 ML IV ONE ×2 (08:07→08:13)
[2024-01-26] MEDS ORDERED: Lactated Ringers 1,000 ML IV ONE (08:51)
--- NOTE | 2024-01-26 09:45 | XRAY ---
Indication: Left L4-S1 RFA. Intraoperative fluoroscopy provided for 28 seconds. 4 digital spot image submitted for interpretation demonstrates posterior needle tips projecting over the expected left L4-L6 nerve roots. Correlate with intraoperative findings/report. Incidental L5-L6 fusion hardware first reported August 13, 2023 radiograph.
--- NOTE | 2024-01-26 13:24 | XRAY ---
28 seconds of fluoroscopy was used in surgery for a left L4-S1 RFA.
== END 2024-01-26 08:40 | disposition home or self-care (01) ==
LOC: SDC-PAIN 06:51
PROVIDERS: ATTEND Psychiatry & Neurology Pain Medicine
DX: M47.816 Spondylosis without myelopathy or radiculopathy, lumbar region (principal); E11.9 Type 2 diabetes mellitus without complications
CPT/HCPCS: 64635; 64636; 72100; 77002; 82947; J1010; J2001; J2704

== ENCOUNTER 2024-02-02 07:21 | Day surgery (SDC) | payer OTHER ==
[2024-02-02] MEDS ORDERED: DIPRIVAN 200 MG/20 ML IV ONE (08:48)
[2024-02-02] MEDS ORDERED: Versed 2 MG/2 ML Injection ONE (09:06)
[2024-02-02] MEDS ORDERED: Lactated Ringers 1,000 ML IV ONE (09:25)
--- NOTE | 2024-02-02 11:12 | XRAY ---
Indication: Right L4-S1 RFA. Intraoperative fluoroscopy provided for 20 seconds. 3 digital spot image submitted for interpretation demonstrates posterior needle tips projecting over the expected right L4-S1 nerve roots. Correlate with intraoperative findings/report. Incidental lower lumbar fusion hardware
--- NOTE | 2024-02-02 12:25 | XRAY ---
20 seconds of fluoroscopy was used in surgery for a right L4-S1 RFA.
== END 2024-02-02 09:25 | disposition home or self-care (01) ==
LOC: SDC-PAIN 07:21
PROVIDERS: ATTEND Psychiatry & Neurology Pain Medicine
DX: M47.816 Spondylosis without myelopathy or radiculopathy, lumbar region (principal); E11.9 Type 2 diabetes mellitus without complications
CPT/HCPCS: 64635; 64636; 72100; 77002; 82947; J2250; J2704

== ENCOUNTER 2024-05-31 06:49 | Day surgery (SDC) | payer OTHER ==
[2024-05-31] MEDS ORDERED: Xylocaine-Mpf 2% 5 Ml Vial IJ ONE (06:50)
[2024-05-31] MEDS ORDERED: DIPRIVAN 200 MG/20 ML IV ONE (08:21)
--- NOTE | 2024-05-31 10:11 | XRAY ---
Indication: Left C2-C4 MBB. Intraoperative fluoroscopy provided for 8 seconds. 2 digital spot images submitted for interpretation demonstrates posterior needle tips projecting over the expected left C2-C4 nerve roots. Correlate with intraoperative findings/report.
--- NOTE | 2024-05-31 12:10 | XRAY ---
8 seconds of fluoroscopy was used in surgery for a left C2-C4 MBB.
== END 2024-05-31 08:48 | disposition home or self-care (01) ==
LOC: SDC-PAIN 06:49
PROVIDERS: ATTEND Psychiatry & Neurology Pain Medicine
DX: M47.812 Spondylosis without myelopathy or radiculopathy, cervical region (principal); E11.9 Type 2 diabetes mellitus without complications
CPT/HCPCS: 64490; 64491; 72040; 77002; 82947; J2704

== ENCOUNTER 2024-08-09 06:54 | Day surgery (SDC) | payer OTHER ==
[2024-08-09] MEDS ORDERED: propofoL IV ONE ×2 (08:10→08:18)
--- NOTE | 2024-08-09 10:05 | XRAY ---
Indication: Left C2-C4 MBB. Intraoperative fluoroscopy provided for 11 seconds. 2 digital spot images submitted for interpretation demonstrates posterior needle tips projecting over the expected left C2-C4 nerve roots. Correlate with intraoperative findings/report.
--- NOTE | 2024-08-09 10:39 | XRAY ---
11 seconds of fluoroscopy was used in surgery for a left C2-C4 MBB.
== END 2024-08-09 08:44 | disposition home or self-care (01) ==
LOC: SDC-PAIN 06:54
PROVIDERS: ATTEND Psychiatry & Neurology Pain Medicine
DX: M47.812 Spondylosis without myelopathy or radiculopathy, cervical region (principal); E11.9 Type 2 diabetes mellitus without complications
CPT/HCPCS: 64490; 64491; 72040; 77002; 82947; J2704

== ENCOUNTER 2024-09-13 06:52 | Day surgery (SDC) | payer OTHER ==
[2024-09-13] MEDS ORDERED: BUPIVACAINE 0.5% VIAL IJ ONE (06:53)
[2024-09-13] MEDS ORDERED: LIDOCAINE HCL 1% AMPUL 5 ML IJ ONE (06:53)
[2024-09-13] MEDS ORDERED: dexAMETHasone sodium phosphate IJ ONE (06:53)
[2024-09-13] MEDS ORDERED: Lactated Ringers 500 ML IV ONE (07:29)
[2024-09-13] MEDS ORDERED: propofoL IV ONE ×2 (07:57→08:08)
--- NOTE | 2024-09-13 09:59 | XRAY ---
Indication: Left C2-C4 RFA. Intraoperative fluoroscopy provided for 21 seconds. 4 digital spot image submitted for interpretation demonstrates posterior needle tips projecting over expected left C2-C4 nerve roots. Correlate with intraoperative findings/report.
--- NOTE | 2024-09-13 10:01 | XRAY ---
21 seconds of fluoroscopy was used in surgery for a left C2-C4 RFA.
== END 2024-09-13 08:33 | disposition home or self-care (01) ==
LOC: SDC-PAIN 06:52
PROVIDERS: ATTEND Psychiatry & Neurology Pain Medicine
DX: M47.812 Spondylosis without myelopathy or radiculopathy, cervical region (principal); E11.9 Type 2 diabetes mellitus without complications
CPT/HCPCS: 64633; 64634; 72040; 77002; 82947; J1100; J2704

== ENCOUNTER 2024-10-04 07:13 | Day surgery (SDC) | payer OTHER ==
[2024-10-04] MEDS ORDERED: LIDOCAINE HCL 2% 100 MG/5 ML IJ ONE (07:14)
[2024-10-04] MEDS ORDERED: propofoL IV ONE ×2 (09:10→09:19)
--- NOTE | 2024-10-04 09:57 | XRAY ---
Indication: Bilateral L2-L4 MBB. Intraoperative fluoroscopy provided for 14 seconds. 2 digital spot images submitted for interpretation demonstrates posterior needle tips projecting over expected left and right L2-L4 nerve roots. Correlate with intraoperative findings/report.
--- NOTE | 2024-10-04 10:56 | XRAY ---
14 seconds of fluoroscopy was used in surgery for a bilateral L2-L4 MBB.
== END 2024-10-04 09:42 | disposition home or self-care (01) ==
LOC: SDC-PAIN 07:13
PROVIDERS: ATTEND Psychiatry & Neurology Pain Medicine
DX: M47.816 Spondylosis without myelopathy or radiculopathy, lumbar region (principal); E11.9 Type 2 diabetes mellitus without complications
CPT/HCPCS: 64493; 64494; 72020; 77002; 82947; J2704

== ENCOUNTER 2024-10-21 17:01 | Emergency (ER) | payer OTHER ==
[2024-10-21 17:21] VITALS: TEMP 97.2
--- NOTE | 2024-10-21 17:21 | ERPHSYRPT ---
- History of Present Illness Time Seen by Provider: 10/21/24 17:21 Source: patient Exam Limitations: no limitations Patient Subjective Stated Complaint: Cough Triage Nursing Assessment: [facility] Physician History: Pt presents with a 3-day history of cough. They report some shortness of breath associated with the cough. Pt has been taking NyQuil and ibuprofen, as well as their prescribed pain medication for rib pain secondary to coughing, but reports no relief. They deny productive cough. Pt also reports ear pain, described as mild. They state their current pain medication is not helping their chest pain. Pt reports nausea. Timing/Duration: day(s) (3) Cough Quality/Degree: moderate, dry cough Possible Cause: occasional episodes Modifying Factors: Worsens With: coughing, deep breath Associated Symptoms: chest pain/soreness, cough, No shortness of breath, No wheezing Allergies/Adverse Reactions: codeine Allergy (Intermediate, Verified 10/21/24 17:15) Nausea and Vomiting ketorolac [From Toradol] Allergy (Intermediate, Verified 10/21/24 17:15) Nausea and Vomiting morphine Allergy (Intermediate, Verified 10/21/24 17:15) Hives ondansetron [From Zofran] Allergy (Intermediate, Verified 10/21/24 17:15) Nausea and Vomiting piroxicam [From Feldene] Allergy (Intermediate, Verified 10/21/24 17:15) Hives Home Medications: Atorvastatin Calcium 40 mg PO HS 10/22/22 [History] Fenofibrate Nanocrystallized [Fenofibrate] 145 mg PO HS 10/22/22 [History] Lamotrigine [Lamotrigine ER] 200 mg PO BID 10/22/22 [History] Lisinopril 10 mg [Zestril 10 MG] 10 mg PO HS 10/22/22 [History] PANTOPRAZOLE 40 mg Tablet [Protonix 40MG Tablet] 40 mg PO HS 10/22/22 [History] Ropinirole HCl 2 mg PO HS 10/22/22 [History] Tizanidine HCl 4 mg [Zanaflex 4 MG] 4 mg PO TID 10/22/22 [History] Trazodone HCl 200 mg PO HS 10/22/22 [History] Venlafaxine HCl [Venlafaxine HCl ER] 150 mg PO HS 10/22/22 [History] Gabapentin 800 mg PO TID 08/13/23 [History] Quetiapine Fumarate 100 mg [Seroquel 100 MG] 100 mg PO HS PRN PRN 10/08/23 [History] Semaglutide [Ozempic] 1 mg SQ WEEKLY 10/24/23 [History] Oxycodone HCl/Acetaminophen [Oxycodon-Acetaminophen 7.5-300] 1 tab PO BID PRN PRN 01/14/24 [History] Hx Tetanus, Diphtheria Vaccination/Date Given: Yes Hx Influenza Vaccination/Date Given: No Hx Pneumococcal Vaccination/Date Given: No Immunizations Up to Date: Yes Travel Risk - International Travel Have you traveled outside of the country in past 3 weeks: No - Emerging Infectious Disease Are you exhibiting symptoms associated with any current EIDs: No - Review of Systems All Other Systems: Reviewed and Negative - Past Medical History Pertinent Past Medical History: Yes Neurological History: No Pertinent History ENT History: No Pertinent History Cardiac History: Arrhythmia, Coronary Artery Disease, High Cholesterol Respiratory History: No Pertinent History Endocrine Medical History: Diabetes Type II Musculoskeletal History: Degenerative Disk Disease GI Medical History: GERD, Gallbladder Disease, Hernia History: No Pertinent History Psycho-Social History: Depression Female Reproductive Disorders: Menstrual Problems Other Medical History: PVCs with bigeminy - Past Surgical History Past Surgical History: Yes Neuro Surgical History: No Pertinent History Cardiac: Other Respiratory: No Pertinent History Gastrointestinal: Cholecystectomy, Hernia Repair Genitourinary: No Pertinent History Musculoskeletal: Orthopedic Surgery Female Surgical History: Hysterectomy Other Surgical History: cardiac ablation. lumbar fusion Significant Family History: no pertinent family hx - Female History Hx Last Menstrual Period: hysterectomy Hx Now: No - Social History Smoking Status: Current every day smoker How long have you smoked: 25 Exposure to second hand smoke: Yes Drug Use: none - Social Determinants of Health Will the patient participate in the screening: Yes Do you worry about a steady place to live?: No Do you have any problems with any of the following?: No known problems In the past 12 months,have you had to go without utilities?: No Transportation Issues: No Has anyone in your support network made you feel unsafe?: No Have you or anyone in your house had to go w/o enough food: No - Nursing Vital Signs Nursing Vital Signs: Initial Vital Signs Temperature 97.2 F 10/21/24 17:15 Pulse Rate 97 H 10/21/24 17:15 Respiratory Rate 20 10/21/24 17:15 Blood Pressure 103/66 10/21/24 17:15 O2 Sat by Pulse Oximetry 98 10/21/24 17:15 Pain Scale Pain Intensity 0 - Physical Exam General Appearance: no apparent distress Ears, Nose, Throat Exam: normal ENT inspection, pharynx normal Neck Exam: normal inspection, non-tender, supple, full range of motion Respiratory Exam: normal breath sounds, chest tenderness, lungs clear, airway intact, No respiratory distress Cardiovascular Exam: regular rate/rhythm, normal heart sounds, capillary refill <2 sec Gastrointestinal/Abdomen Exam: soft, No tenderness, No distention, No mass, No guarding, No rebound Neurologic Exam: alert, oriented x 3, cooperative Skin Exam: normal color, warm, dry SpO2 Interpretation: normal SpO2: 97 O2 Delivery: Room Air - Course Nursing assessment & vital signs reviewed: Yes - Radiology Exams Chest X-ray Interpretation: Interpreted by me, No Pneumonia Ordered Tests: Active Orders 24 hr Category Date Time Status CHEST 1 VIEW (PORTABLE) Stat Exams 10/21/24 17:22 Taken Medication Summary Generic Name Dose Route Start Last Admin Trade Name Freq PRN Reason Stop Dose Admin Hydrocodone Bitart/Acetaminophen 10 ml 10/21/24 17:42 10/21/24 18:59 Hydrocodone/Acetaminophen 5 Ml Udcup PO 10/26/24 17:41 10 ml Q4HPRN PRN Administration PAIN Discontinued Medications Generic Name Dose Route Start Last Admin Trade Name Freq PRN Reason Stop Dose Admin Hydrocodone Bitart/Acetaminophen 10 ml 10/21/24 17:43 10/21/24 17:55 Hydrocodone/Acetaminophen 5 Ml Udcup PO 10/21/24 17:44 10 ml STAT STA Administration Droperidol 1.25 mg 10/21/24 17:32 10/21/24 17:36 Droperidol 5 Mg/2 Ml Vial IV 10/21/24 17:33 Not Given STAT ONE Droperidol 1.25 mg 10/21/24 17:36 10/21/24 17:40 Droperidol 5 Mg/2 Ml Vial IM 10/21/24 17:37 1.25 mg STAT ONE Administration Droperidol Confirm 10/21/24 17:37 Droperidol 5 Mg/2 Ml Vial Administered 10/21/24 17:38 Dose 5 mg .ROUTE .STK-MED ONE Prednisone 60 mg 10/21/24 17:44 10/21/24 17:54 Prednisone 20 Mg Tablet PO 10/21/24 17:45 60 mg STAT ONE Administration Prednisone Confirm 10/21/24 17:52 Prednisone 20 Mg Tablet Administered 10/21/24 17:53 Dose 60 mg .ROUTE .STK-MED ONE Lab/Rad Data: Laboratory Results 10/21/24 Range/Units 17:46 Influenza Type A Ag POSITIVE A (NEGATIVE) Influenza Type B Ag NEGATIVE (NEGATIVE) RSV (PCR) NEGATIVE (NEGATIVE) SARS-CoV-2 (PCR) NEGATIVE (NEGATIVE) - Progress Progress: improved Air Movement: good Progress Note: Differential Diagnosis: viral uri, bronchitis, PNA Due to the chief complaint, the following diagnoses were also considered but the signs/symptoms, physical exam, and data points are not consistent with any of the following: Pneumonia, Pneumothorax, Pulmonary Embolism, Asthma, COPD, Bronchitis, Influenza, COVID-19, Allergic Reaction, GERD, Heart Failure, Pericarditis, Myocarditis, Aortic Dissection, Lung Cancer, Tuberculosis, Pertussis, Croup, Epiglottitis, Foreign Body Aspiration. CXR, COVID/FLU/RSV ordered. Patient given Droperidol for nausea due to her allergies. 10/21/24 17:44 CXR neg for PNA, given loratab elixir for cough and Prednisone. Will send home with both. If sxs continue past 1 week recommend follow up with PCP. Blood Culture(s) Obtained: No Antibiotics given: No Counseled pt/family regarding: lab results, diagnosis, need for follow-up, rad results Medical Desision Making - Diagnostic Testing Diagnostic test were ordered, analyzed, and reviewed by me: Yes Radiological Interpretation: Interpreted by me - Risk of complications The pt has a mod risk of morbidity or mortality based on: Need for prescription drug management - Departure Departure Disposition: Home Clinical Impression: Viral URI with cough, Acute bronchitis, Influenza A Condition: Good Critical Care Time: No Referrals: ODALYS YE DO [Primary Care Provider] - Follow up/PCP as directed Instructions: Cough, Adult (DC) Prescriptions: predniSONE [Prednisone] 50 mg PO DAILY 4 Days #4 tablet
[2024-10-21] MEDS: Inapsine 5 MG/2 ML IV ONE (17:36)
[2024-10-21] MEDS ORDERED: Inapsine 5 MG/2 ML ONE (17:37)
[2024-10-21] MEDS: Inapsine 5 MG/2 ML IM ONE (17:40)
[2024-10-21] MEDS ORDERED: DELTASONE 20 MG ONE (17:52)
[2024-10-21] MEDS ORDERED: HYDROCODONE-ACETAMIN 2.5-108/5 ML SOLUTION ONE ×2 (17:52→18:58)
[2024-10-21] MEDS: DELTASONE 20 MG PO ONE (17:54)
[2024-10-21] MEDS: HYDROCODONE-ACETAMIN 2.5-108/5 ML SOLUTION PO STA (17:55)
[2024-10-21 18:32] LABS: INFLUENZA B NEGATIVE (NEGATIVE); RESPIRATORY SYNCTIAL VIRUS NEGATIVE (NEGATIVE); SARS-CoV-2 Xpert Express NEGATIVE (NEGATIVE)
[2024-10-21] MEDS: HYDROCODONE-ACETAMIN 2.5-108/5 ML SOLUTION PO PRN (18:59)
[2024-10-21 19:00] VITALS: BP 104/62; PULSE 68; RESP 18
[2024-10-21 19:00] LABS: INFLUENZA A POSITIVE (NEGATIVE)
[2024-10-21 19:03] VITALS: O2SAT 97
--- NOTE | 2024-10-21 20:26 | XRAY ---
Indication: Cough. Comparison: September 18, 2023 Portable chest remains inflated and clear. Heart not enlarged. Bony thorax intact. No new/acute findings.
== END 2024-10-21 19:15 | disposition home or self-care (01) ==
LOC: ED 17:01
DX: J10.1 Influenza due to other identified influenza virus with other respiratory manifestations (principal); R05.1 Acute cough; R06.02 Shortness of breath; R11.0 Nausea; E78.5 Hyperlipidemia, unspecified; E11.9 Type 2 diabetes mellitus without complications; Z79.52 Long term (current) use of systemic steroids; Z79.84 Long term (current) use of oral hypoglycemic drugs; Z79.891 Long term (current) use of opiate analgesic; Z79.899 Other long term (current) drug therapy; Z72.0 Tobacco use
CPT/HCPCS: 0241U; 71045; 96372; 99284; J1790; A9270-GY

== ENCOUNTER 2024-11-29 07:44 | Day surgery (SDC) | payer OTHER ==
[2024-11-29] MEDS ORDERED: Depo-Medrol 40 MG/ML IM ONE (07:45)
[2024-11-29] MEDS ORDERED: BUPIVACAINE 0.5% VIAL IJ ONE (07:45)
[2024-11-29] MEDS ORDERED: propofoL IV ONE ×2 (09:18→09:25)
[2024-11-29] MEDS ORDERED: Lactated Ringers 1,000 ML IV ONE (09:51)
--- NOTE | 2024-11-29 10:34 | XRAY ---
Indication: Bilateral L2-L4 MBB. Intraoperative fluoroscopy provided for 17 seconds. Single digital spot image submitted for interpretation demonstrates posterior needle tips projecting over expected left and right L2-L4 nerve roots. Correlate with intraoperative findings/report.
--- NOTE | 2024-11-29 10:39 | XRAY ---
17 seconds of fluoroscopy was used in surgery for a bilateral L2-L4 MBB.
== END 2024-11-29 09:46 | disposition home or self-care (01) ==
LOC: SDC-PAIN 07:44 → EDSTATUS 08:38 → SDC-PAIN 09:46
PROVIDERS: ATTEND Psychiatry & Neurology Pain Medicine
DX: M47.817 Spondylosis without myelopathy or radiculopathy, lumbosacral region (principal); E11.9 Type 2 diabetes mellitus without complications
CPT/HCPCS: 64493; 64494; 72020; 82947; J2704

== ENCOUNTER 2025-03-01 07:53 | Day surgery (SDC) | payer OTHER ==
[2025-03-01] MEDS ORDERED: BUPIVACAINE 0.5% VIAL IJ ONE (07:54)
[2025-03-01] MEDS ORDERED: propofoL IV ONE ×2 (10:14→10:19)
[2025-03-01] MEDS ORDERED: DILAUDID 0.5 MG/0.5 ML SYRINGE ONE (10:42)
--- NOTE | 2025-03-01 11:08 | XRAY ---
Indication: Right C2-C4 MBB. Intraoperative fluoroscopy provided for 8 seconds. 2 digital spot image submitted for interpretation demonstrates posterior needle tips projecting over expected right C2-C4 nerve roots. Correlate with intraoperative findings/report.
--- NOTE | 2025-03-01 11:30 | XRAY ---
8 seconds of fluoroscopy was used in surgery for a right C2-C4 MBB.
[2025-03-01] MEDS ORDERED: Lactated Ringers 1,000 ML IV ONE (12:18)
== END 2025-03-01 11:02 | disposition home or self-care (01) ==
LOC: SDC-PAIN 07:53
PROVIDERS: ATTEND Psychiatry & Neurology Pain Medicine
DX: M47.812 Spondylosis without myelopathy or radiculopathy, cervical region (principal); E11.9 Type 2 diabetes mellitus without complications

== ENCOUNTER 2025-06-14 07:37 | Day surgery (SDC) | payer OTHER ==
[2025-06-14] MEDS ORDERED: BUPIVACAINE 0.5% VIAL IJ ONE (07:38)
[2025-06-14] MEDS ORDERED: methylPREDNISolone acetate IM ONE (07:38)
[2025-06-14] MEDS ORDERED: propofoL IV ONE ×2 (09:38→09:44)
[2025-06-14] MEDS ORDERED: Lactated Ringers 1,000 ML IV ONE (09:56)
[2025-06-14] MEDS ORDERED: DILAUDID 0.5 MG/0.5 ML SYRINGE ONE (10:14)
--- NOTE | 2025-06-14 12:07 | XRAY ---
Indication: Right shoulder injection. Intraoperative fluoroscopy provided for 16 seconds. 2 digital spot images submitted for interpretation demonstrates needle tip projecting over right glenohumeral joint superiorly. 2nd needle tip projects over mid humeral head. Small amount of contrast injected for needle tip placement. Correlate with intraoperative findings/report.
--- NOTE | 2025-06-14 12:09 | XRAY ---
16 seconds of fluoroscopy was used in surgery for a right intra-articular shoulder injection.
== END 2025-06-14 10:39 | disposition home or self-care (01) ==
LOC: SDC-PAIN 07:37
PROVIDERS: ATTEND Psychiatry & Neurology Pain Medicine
DX: M19.011 Primary osteoarthritis, right shoulder (principal); M75.21 Bicipital tendinitis, right shoulder; E11.9 Type 2 diabetes mellitus without complications

== ENCOUNTER 2025-07-12 08:01 | Day surgery (SDC) | payer OTHER ==
[2025-07-12] MEDS ORDERED: methylPREDNISolone acetate IM ONE (08:02)
[2025-07-12] MEDS ORDERED: LIDOCAINE HCL 1% 50 MG/5 ML VL IJ ONE (08:02)
[2025-07-12] MEDS ORDERED: BUPIVACAINE 0.5% VIAL IJ ONE (08:02)
[2025-07-12] MEDS ORDERED: propofoL IV ONE ×2 (09:56→10:02)
--- NOTE | 2025-07-12 10:45 | XRAY ---
Indication: Right L4-S1 RFA. Intraoperative fluoroscopy provided for 22 seconds. 4 digital spot image submitted for interpretation demonstrates posterior needle tips projecting over expected right L4-S1 nerve roots. Correlate with intraoperative findings/report. Incidental L4-L5 fusion hardware.
--- NOTE | 2025-07-12 10:51 | XRAY ---
22 seconds of fluoroscopy was used in surgery for a right L4-S1 RFA.
[2025-07-12] MEDS ORDERED: Lactated Ringers 1,000 ML IV ONE (12:43)
== END 2025-07-12 11:00 | disposition home or self-care (01) ==
LOC: SDC-PAIN 08:01
PROVIDERS: ATTEND Psychiatry & Neurology Pain Medicine
DX: M47.817 Spondylosis without myelopathy or radiculopathy, lumbosacral region (principal); E11.9 Type 2 diabetes mellitus without complications